=== PATIENT | male | born 1945 | race Caucasian/White ===

== ENCOUNTER → 2020-01-07 15:02 | Outpatient (CLI) | payer MEDICARE, SELFPAY ==
[2020-01-09 08:25] LABS: COVID19 Sendout Not Detected (Not Detect)
== END ==
PROVIDERS: PCP Internal Medicine; Visit Provider Physician Assistant
DX: Z11.59 Encounter for screening for other viral diseases (principal)
CPT/HCPCS: 87635

== ENCOUNTER 2020-01-10 12:42 | Day surgery (SDC) | payer MEDICARE, SELFPAY ==
[2020-01-10] VITALS (11 sets, daily range): BP systolic 72–135; BP diastolic 48–80; PULSE 58–81; RESP 10–28; TEMP 35.6–36.8; O2SAT 95–98; BMI 33.3
--- NOTE | 2020-01-10 | PATH_ITS ---
[facility] Accession Number: [id number] . 01 Material submitted: . colon - COLON POLYP AT 80CM . 01 Clinical history: . SDC . 02 Diagnosis: Colon, Polyp at 80 cm, Biopsy: Tubular adenoma. MRV 01/14/2020 1111 Local . 02 Electronically signed: . Sonia Tineo MD, Pathologist NPI- [id number] . 01 Gross description: . Received in formalin, labeled colon polyp at 80 cm, and consists of a 1.6 x 0.3 x 0.3 cm pedunculated polyp. The margin is inked blue. The specimen is entirely submitted in cassette A1. ([id number]) /MRV 01/11/2020 1600 Local . 02 Pathologist provided ICD-10: D12.6 . 02 CPT . 405918 Performed at: 01 [facility] [address] [place] [address], [place], [place] [id number] MD Robert Espinosa MD Phone: [phone] Performed at: 02 [facility] [place] [address] [place], [place] [id number] MD Sonia Tineo MD Phone: [phone]
[2020-01-10] MEDS: LACTATED RINGERS 1,000 ML 200 ML IV ×2 (13:13→14:17)
--- NOTE | 2020-01-10 13:28 | PM.HP.1 ---
History of Present Illness History of Present Illness Date Patient Seen: 01/10/20 Time Patient Seen: 13:28 Chief complaint: [facility] Narrative: The patient presents for colorectal sreening. They have never had any previous examination for such. No personal or family history of colon cancer. On further history denies any recent gastrointestinal symptoms. No nausea, vomiting, abdominal pain, loss of appetite, unexplained weight loss, change in bowel habits, diarrhea, constipation, melena, hematochezia, or bright red blood per rectum. Patient History Medical History GERD (gastroesophageal reflux disease) (Acute) HTN (hypertension) (Acute) Family & Social History Social History: household members spouse Tobacco & Substance use: Smoking Status Never smoker alcohol intake never Substance Use Type does not use Meds Home Medications and Allergies Home Medications Medication Instructions Recorded Confirmed Type levothyroxine 0.15 mg PO QAM #90 tab 05/30/17 01/10/20 Rx lisinopril 10 mg PO Q DAY #90 tab 05/30/17 01/10/20 Rx lovastatin 20 mg PO HS #90 tab 05/30/17 01/10/20 Rx Allergies Allergy/AdvReac Type Severity Reaction Status Date / Time No Known Drug Allergies Allergy Verified 01/10/20 13:14 Review of Systems Review of Systems Narrative: A 10 point review of systems is negative except as noted in the HPI Exam Vital Signs (past 8 hours): - 01/10/20 13:08 Temperature 97.6 F Pulse Rate 81 Respiratory Rate 21 Blood Pressure 135/80 Pulse Oximetry 97 Oxygen Delivery Method Room Air Narrative Exam Narrative: General-no acute distress, obese male HEENT-moist mucous membranes, no scleral icterus Neck-supple, no lymphadenopathy Chest- non labored respirations, clear to auscultation bilaterally Cardiac-regular rate no peripheral edema Abdomen-soft, nontender, non distended Extremities-warm, well perfused Neurological-alert and oriented, no focal deficits Assessment & Plan Assessment & Plan narrative: The patient requires colorectal screening and colonoscopy is recommended. Technical details were discussed. Risks, benefits, alternatives explained. Risks including but not limited to myocardial infarction, aspiration, bleeding, pain, missed lesion, incomplete examination, need for further radiographic studies, colonic perforation, and need for major abdominal surgery were discussed. All questions were answered to their satisfaction, and they are in agreement with this plan.
[2020-01-10] MEDS: fentaNYL 250 MCG/5 ML INJ IV (13:31)
[2020-01-10] MEDS: MIDAZOLAM 5 MG/5 ML VIAL IV (13:32)
--- NOTE | 2020-01-10 14:02 | PM.OP.ENDO ---
Operative Date/Time/Diagnoses Date of procedure: 01/10/20 Time of procedure: 14:03 Pre-op diagnosis: Screening colonoscopy Post-op diagnosis: same Procedure & Clinicians Study performed: Colonoscopy Same procedure as scheduled: Yes Indications: 74-year-old man no prior colonoscopy here for routine screening Surgeon: Dioni Guallpa Procedure Notes SCOAP/Timeout: Performed Procedure in detail: Patient placed in left lateral recumbent position. Time out was performed. Procedural sedation was administered with Versed and Fentanyl. Examination began with a thorough inspection of the perianal area there was no evidence of fissures, fistulae, external hemorrhoids or cutaneous malignancy. The colonoscopy scope was then placed into the rectum the the lumen was insufflated with air. The scope was carefully advanced forward. Ultimately the cecum was intubated and confirmed by identification of the ileocecal valve, the appendiceal orifice and the confluence of the taenia. The scope was then slowly withdrawn examining colon thoroughly in all directions. In the rectum the rectal columns were identified and retroflexion of the scope was performed for inspection of the distal rectum and anal canal. The colonoscopy was notable for the followin. Quality of the preparation-fair 2. 1 cm pedunculated polyp in the sigmoid colon removed with cold snare 3. Grade 1 internal hemorrhoids Scope withdrawal time: 7 Sedation minutes: 30 Findings: polyp Specimen(s): other (Polyp) Complications: none Impression: Polyp Post-procedure Recommendations: Colonscopy in 5 years Disposition: same day surgery
--- NOTE | 2020-01-10 14:15 | SUR.PHASEI ---
Patient received from [facility] in stable condition. BP 80/53 and patient is diaphoretic. Pre-op blood pressure noted to be 135/80. Abdomen soft. Patient denies pain or nausea. Blood sugar check 102. Lactated ringers bag one running wide open.
== END 2020-01-10 15:09 | disposition home or self-care (01) ==
PROVIDERS: PCP Internal Medicine; Referring Provider Surgery; Visit Provider Surgery
PROC: 0DJD8ZZ Inspection of Lower Intestinal Tract, Via Natural or Artificial Opening Endoscopic (ICD-10-PCS; CPT 45378; principal; 2020-01-10 13:45)
DX: Z12.11 Encounter for screening for malignant neoplasm of colon (principal); I10 Essential (primary) hypertension; K21.9 Gastro-esophageal reflux disease without esophagitis; K64.0 First degree hemorrhoids; D12.6 Benign neoplasm of colon, unspecified
CPT/HCPCS: 45380; 99152; 99153; J2250; J3010

== ENCOUNTER → 2020-06-02 09:28 | Outpatient (CLI) | payer OTHER, SELFPAY ==
--- NOTE | 2020-06-02 | DI.RAD.S_ITS ---
PROCEDURE: XR KNEE RT 1TO2V INDICATIONS: Pain in right knee TECHNIQUE: 2 views of the knee were acquired. COMPARISON: [facility] [place], CR, KNEE BILATERAL STANDING AP, 07/04/2014, 14:48. [facility], CR, KNEE 3V LEFT, 07/03/2014, 8:26. FINDINGS: Bones: No fracture. Severe narrowing of the medial joint space, with gtpr-ez-[id number] appearance. Scattered degenerative subchondral sclerosis and spurring. Soft tissues: Small joint effusion. IMPRESSION: Severe right knee joint degeneration progressed since 07/04/14 Small joint effusion Dictated by: Mayank Hendricks M.D. on 06/02/2020 at 11:05 Approved by: Mayank Hendricks M.D. on 06/02/2020 at 11:06
--- NOTE | 2020-06-02 | DI.RAD.S_ITS ---
PROCEDURE: XR KNEE LT 1TO2V INDICATIONS: Pain in LEFT knee TECHNIQUE: 2 views of the knee were acquired. COMPARISON: [facility], , KNEE 3V LEFT, 07/03/2014, 8:26. FINDINGS: Bones: No fracture. Scattered degenerative subchondral sclerosis and spurring. Large bulky osteophyte formation. Severe narrowing of the medial joint space, with ozxk-te-noga appearance. Soft tissues: Joint effusion is present. IMPRESSION: Severe left knee joint degeneration, progressed since 07/03/14. Dictated by: Mayank Hendricks M.D. on 06/02/2020 at 11:03 Approved by: Mayank Hendricks M.D. on 06/02/2020 at 11:05
== END ==
PROVIDERS: PCP Student in an Organized Health Care Education/Training Program; Referring Provider Student in an Organized Health Care Education/Training Program; Visit Provider Student in an Organized Health Care Education/Training Program
DX: M25.561 Pain in right knee (principal); M25.562 Pain in left knee; M17.0 Bilateral primary osteoarthritis of knee; M25.461 Effusion, right knee; M25.462 Effusion, left knee
CPT/HCPCS: 73560

== ENCOUNTER → 2020-07-07 19:18 | Outpatient (ROUT) | payer OTHER, SELFPAY ==
[2020-07-07 19:42] LABS: BUN Creatinine Ratio 20.3 (6-22); Blood Urea Nitrogen 16 mg/dL (9-20); Calcium 8.8 mg/dL (8.4-10.2); Carbon Dioxide 27 mmol/L (22-32); Chloride 104 mmol/L (98-107); Estimated Glomerular Filt Rate > 60.0 mL/min (>60); Glucose 106 mg/dL (80-110); HEMOLYSIS < 15 (0-50); Potassium 4.3 mmol/L (3.4-5.1); Sodium 138 mmol/L (137-145)
[2020-07-07 20:12] LABS: Hematocrit 35.1 % (41-53); Hemoglobin 11.3 g/dL (13.5-17.5); Mean Corpuscular HGB Conc 32.3 % (30-36); Mean Corpuscular Hemoglobin 22.5 PG (26-34); Mean Corpuscular Volume 69.5 fL (80-100); Platelet Count 330 X10^3/uL (150-400); Red Blood Cell Count 5.05 X10^6/uL (4.5-5.9); Red Cell Distribution Width 18.4 % (11.6-14.8); White Blood Cell Count 6.5 X10^3/uL (4.5-11.0)
== END ==
PROVIDERS: PCP Student in an Organized Health Care Education/Training Program; Visit Provider Student in an Organized Health Care Education/Training Program
DX: Z01.818 Encounter for other preprocedural examination (principal); I10 Essential (primary) hypertension
CPT/HCPCS: 80048; 85027

== ENCOUNTER → 2020-07-15 08:37 | Outpatient (CLI) | payer OTHER, SELFPAY ==
[2020-07-15 09:49] LABS: Add Manual Diff / Slide Review NO; Basophils Absolute Auto 0 /uL (0-100); Basophils Percent Auto 0.8 % (0-2); Eosinophils Absolute Auto 200 /uL (0-450); Eosinophils Percent Auto 3.6 % (2-4); Hematocrit 35.8 % (41-53); Hemoglobin 11.3 g/dL (13.5-17.5); Lymphocytes Absolute Auto 1500 /uL (1100-4500); Lymphocytes Percent Auto 25.6 % (25-40); Mean Corpuscular HGB Conc 31.4 % (30-36); Mean Corpuscular Hemoglobin 21.6 PG (26-34); Mean Corpuscular Volume 68.7 fL (80-100); Monocytes Absolute Auto 600 /uL (0-900); Monocytes Percent Auto 9.5 % (3-14); Neutrophils Absolute Auto 3500 /uL (1500-7000); Neutrophils Percent Auto 60.5 % (50-75); Platelet Count 340 X10^3/uL (150-400); Red Blood Cell Count 5.22 X10^6/uL (4.5-5.9); Red Cell Distribution Width 18.1 % (11.6-14.8); White Blood Cell Count 5.8 X10^3/uL (4.5-11.0)
[2020-07-15 10:09] LABS: Anisocytosis 2+; Poikilocytosis 1+
[2020-07-15 10:10] LABS: Microcytosis 1+
[2020-07-15 10:25] LABS: Hemoglobin A1C% w Est Avg Glu 5.7 % (4.0-6.0)
[2020-07-15 10:29] LABS: BUN Creatinine Ratio 19.3 (6-22); Blood Urea Nitrogen 17 mg/dL (9-20); Calcium 8.6 mg/dL (8.4-10.2); Carbon Dioxide 27 mmol/L (22-32); Chloride 102 mmol/L (98-107); Estimated Glomerular Filt Rate > 60.0 mL/min (>60); Glucose 92 mg/dL (80-110); HEMOLYSIS < 15 (0-50); Potassium 4.4 mmol/L (3.4-5.1); Sodium 137 mmol/L (137-145)
== END ==
PROVIDERS: PCP Student in an Organized Health Care Education/Training Program; Referring Provider Orthopaedic Surgery Adult Reconstructive Orthopaedic Surgery; Visit Provider Orthopaedic Surgery Adult Reconstructive Orthopaedic Surgery
DX: R73.9 Hyperglycemia, unspecified (principal); Z01.812 Encounter for preprocedural laboratory examination
CPT/HCPCS: 36415; 80048; 83036; 85025

== ENCOUNTER → 2020-07-17 08:33 | Outpatient (CLI) | payer OTHER, SELFPAY | PROVIDERS: PCP Student in an Organized Health Care Education/Training Program; Referring Provider Orthopaedic Surgery Adult Reconstructive Orthopaedic Surgery; Visit Provider Orthopaedic Surgery Adult Reconstructive Orthopaedic Surgery | DX: Z01.818 Encounter for other preprocedural examination (principal) | CPT/HCPCS: 93005; 93010 ==

== ENCOUNTER → 2020-08-04 09:53 | Outpatient (CLI) | payer OTHER, SELFPAY ==
[2020-08-04 10:58] LABS: COVID19 -Nasal RAPID Negative (Negative)
== END ==
PROVIDERS: PCP Student in an Organized Health Care Education/Training Program; Visit Provider Student in an Organized Health Care Education/Training Program
DX: Z20.822 Contact with and (suspected) exposure to COVID-19 (principal); Z01.812 Encounter for preprocedural laboratory examination
CPT/HCPCS: 87635; C9803

== ENCOUNTER 2020-08-07 08:00 | Observation (INO) | payer OTHER, SELFPAY ==
[2020-07-31 09:28] VITALS: BMI 32.5
[2020-08-06] VITALS (13 sets, daily range): BP systolic 99–149; BP diastolic 63–86; PULSE 72–90; RESP 8–18; TEMP 36.1–36.8; O2SAT 93–99; BMI 32.5
--- NOTE | 2020-08-06 08:36 | DI.RAD.S_ITS ---
PROCEDURE: XR KNEE RT 1TO2V INDICATIONS: post operative right knee TECHNIQUE: 2 view(s) of the knee acquired. COMPARISON: [facility], , XR KNEE RT 1TO2V, 06/02/2020, 9:40. FINDINGS: Bones: Patient is status post knee joint arthroplasty. Hardware components are in expected positions. Visualized bony structures are intact. Soft tissues: Overlying postoperative changes are noted. IMPRESSION: Expected post operative change. Dictated by: July Jaimes M.D. on 08/06/2020 at 13:55 Approved by: July Jaimes M.D. on 08/06/2020 at 13:56
[2020-08-06] MEDS: LACTATED RINGERS 1,000 ML 42 ML IV (10:00)
[2020-08-06] MEDS: CELECOXIB 200 MG CAPSULE PO (10:01)
[2020-08-06] MEDS: ACETAMINOPHEN 325 MG TABLET 975 MG PO (10:02)
--- NOTE | 2020-08-06 11:15 | PM.PREOP ---
Pre-operative Note COVID-19 COVID-19 status: Negative Result date/Date tested (Pos, Neg/Pending): 08/04/20 Interval Note History & Physical reviewed/Exam performed by Physician: Yes Changes to H&P: No H&P completed within 30 days and has changed as indicated here:: Plan for R TKA
[2020-08-06] MEDS: CEFAZOLIN 1 GM VIAL 2 GM IV ×2 (11:50→20:04)
[2020-08-06] MEDS: TRANEXAMIC ACID 1,000 MG VIAL 2000 MG INJ ×2 (11:59→13:01)
--- NOTE | 2020-08-06 12:04 | SUR.OPER ---
Supine on padded OR bed, head on pillow, arms secured on padded arm boards at <90 degrees abduction, legs uncrossed, Dr. Valenzuela knee positioner, padded foa, brace at thigh, safety belt at pelvis, tape over blanket over left lower leg.
[2020-08-06] MEDS: MORPHINE 4 MG/ML INJ INJ (12:20)
[2020-08-06] MEDS: KETOROLAC 30 MG/ML VIAL IV (12:21)
[2020-08-06] MEDS: ROPIVACAINE 0.5% PF 5 MG/ML 20ML VIAL 40 ML INJ (12:23)
[2020-08-06] MEDS: SODIUM CHLORIDE IRRIG SOLUTION 250 ML, POVIDONE-IODINE SPONGE STICKS 1 APPLIC IRR (12:24)
--- NOTE | 2020-08-06 13:27 | P.OP_ITS ---
Operative Date/Time/Diagnoses Date of procedure: 08/06/20 Time of procedure: 13:27 Pre-op diagnosis: Right knee OA Post-op diagnosis: same Procedure & Clinicians Procedure: right TKA Same procedure as scheduled: Yes Indications: right knee OA resistant to further conservative measures Surgeon: Fazal Valenzuela Soil Biology Teacher: Ran Butcher Anesthesia Type: General and Spinal Operative Notes Findings: Right knee osteoarthritis with [id number]-pl-[id number] articulation in the medial compartment large osteophytes throughout. Closure Type: primary Specimen(s): none sent Prosthetic devices, grafts, tissues, transplants, or devices: Corbett and Nephew Journey 2 BCS Oxinium femoral component size 4, right Journey tibial base plate size 4, right Journey 2 BCS XLPE 10 mm thick size 3-4, right 32 mm oval Celeste 2 patellar button Estimated Blood Loss (mL): 100 Tourniquet time (min): 59 Procedure in detail: patient was met in the preoperative holding area where the site and side of surgery were marked by . Informed consent had been reviewed and signed in clinic was also reviewed the preoperative holding area all last minute questions were answered. Patient was then brought back in the operating room where he received a spinal anesthetic. He was then placed supine on the operating room table and induced under general anesthesia. A nonsterile tourniquet was placed on the right thigh and right lower extremity was then prepped and draped in normal sterile fashion. Surgical time-out was performed verifying the site and side of surgery as well as the name of the patient. An Esmarch was then used to exsanguinate the right lower extremity the tourniquet was inflated 250 mmHg and longitudinal incision over the anterior aspect of the knee was made with a 10. Blade. A new 10. Blade was then used to elevate medial lateral flaps. The medial parapatellar arthrotomy was then marked and made with a 10. Blade. Hoffa's fat pad was then removed and medial peel was made. Medial peel was quite extensive as patient had a non correctable varus alignment of his knee in the preoperative holding area. Once this was complete femoral osteophytes and tibial osteophytes were removed as well as patellar osteophytes the ACL was removed as well as the lateral meniscus. Wapello's line was then marked using electrocautery the entry site for the femoral and tibial drill was then marked using electrocautery as well. The drill was then used to enter the femoral canal and tibial canal respectively. Intramedullary popeye was then placed inside the femur and the distal femoral cutting block was pinned in neutral position initial cut was made however I decided take 2 more mm off the distal femur as the patient had a 5 degree flexion contracture preoperatively. Then moved onto the tibia intramedullary popeye was placed inside the tibia the outrigger was then used to pin the cutting jig in place a drop popeye was then used to verify alignment. Tibial cut was then made this point the knee was brought into full extension and a 9 mm block fit in the extension space. the knee was a little tighter on the medial side than the lateral side. he had overhanging medial osteophytes in the tibia which were removed with a rongeur and this improved balance. The knee was then brought into full flexion it was noted at this point that the PCL looked ragged the and is concerned that this would not last in light 10 with knee at this point we decided to convert to be CS. The PCL was removed. Gap screen printing press operator was then placed inside the knee with the knee in 90? of flexion and tightened. The pin holes were then drilled for the 5 1 cutting block. Gap screen printing press operator was then removed and the drill holes were compared to Whitesides line which showed external rotation. The femur was then sized to size 4. The 5 1 cutting block was then malleted onto the femur and the 5 in 1 cuts were made sequentially. The block was then removed and the bony segments were removed as well. At this point a size 4 right Oxinium femur was then malleted into place and the notch was then prepared using the drill and punch. A size 4 tibial base plate with a 9 mm thick polyethylene was then placed the knee was brought through range of motion. Knee was balanced in varus valgus at full extension through mid flexion flexion range of motion however it was noted that in deep flexion the tibia want to sublux laterally this was also known we removed the trial components. the patella was then cut using freehand technique and sized to size 32 mm oval Celeste 2 patellar button. This was drilled and trial button was placed. The k nee was brought through range of motion with excellent patellar tracking. the tibial base plate was marked using a floating technique. This point the trials were then removed. The tibial base plate was then placed back onto the femur and the keel was then drilled and punched. Pulse lavage was then used to thoroughly irrigate the cut surface of the tibia femur and patella. Local anesthetic was then infiltrated in the periarticular soft tissues including the back of the knee. The cut surface of the femur tibia and patella were then dried and cement was mixed. Cement was then finger packed into the keel hole as well as the cut surface of the tibia. And placed on the undersurface of the tibial base plate. This was then malleted into place and excess cement was removed. Cement was then finger packed on the cut surface of the femur with exception of the posterior condylar cut. Cement was then placed on the feet of the femoral component this was malleted into place and excess cement was removed. A 9 mm thick polyethylene was then placed in a knee was brought into full extension ankle was held in internal rotation. Cement was then finger packed on the cut surface the patella and between the patellar button since clamp in the place excess cement was removed. At this point Betadine solution was placed in the wound allowed to sit for several minutes prior to being lavage with copious normal saline. Tourniquet was let down. And cement was allowed to fully cure before continuing the patient on the knee. Once cement was fully cured I then trialed with a 10 mm thick polyethylene which had improved stability. This lifted a 10 mm thick the CS polyethylene this was then placed onto the tibia make sure the medial lateral tabs were well engaged. The knee was then thoroughly irrigated with pulse lavage normal saline. Electrocautery was used to gain hemostasis. The medial parapatellar arthrotomy was then closed using 1. Vicryl in interrupted fashion followed by running Quill suture followed by 2 Vicryl in the subcutaneous layer followed by running 3-0 Stratafix followed by Dermabond and Aquacel dressing. Complications: none Post-operative Condition: stable Disposition: PACU Plan for aftercare: 24 hours post-op abx, WBAT RLE, ASA 81mg BID for 6 wekes for DVT prophyalxis
--- NOTE | 2020-08-06 13:43 | SUR.PHASEI ---
Received to PACU after general/spinal anesthesia. Airway patent, self maintained. Report from FANTA Hogan and Dr Dinero.
--- NOTE | 2020-08-06 14:05 | SUR.PHASEI ---
Report called to FNATA Castillo. Pt transferred to room 215 by FANTA Alex. Belongings with pt.
[2020-08-06] MEDS: LACTATED RINGERS 1,000 ML 100 ML IV (14:40)
[2020-08-06] MEDS: ACETAMINOPHEN 325 MG TABLET 650 MG PO (14:42)
--- NOTE | 2020-08-06 16:20 | PT.IIE ---
Current Diagnoses Unilateral primary osteoarthritis, right knee (08/06/20) Surgery Performed Operation Date: 08/06/20 11:15 Actual Procedures p Total Knee Arthroplasty(Right) - Fazal Valenzuela MD Surgical History (Last Updated 07/31/20 @ 10:06 by Candelaria Espinal RN) History of arthroscopy of right knee History of colonoscopy History of esophagogastroduodenoscopy (EGD) Medical History (Last Updated 07/31/20 @ 10:12 by Candelaria Espinal RN) Chronic constipation COUCH (dyspnea on exertion) GERD (gastroesophageal reflux disease) Hoarseness HTN (hypertension) Osteoarthritis PSVT (paroxysmal supraventricular tachycardia) Physical Therapy Inpatient Evaluation/Re-Eval M1 PT/OT-IP Prior Functional Status Start: 08/06/20 16:44 Freq: NEEDED Status: Active Protocol: Document 08/06/20 16:20 AB (Rec: 08/06/20 17:34 AB [id number]) Medical Review Prior Functional Status Medical History Reviewed Yes Communication able to make needs known Mobility and Gait pt stated that he is independent with all mobilities and ambulation without AD Social History Household Members spouse,children Living Arrangements Apartment/Condo Number of Floors (Floors) One Floor Number of Stairs To Enter/Railing? lives on a ground level apartment without steps to enter Home Environment Standard Height Toilet,Tub/ Shower Home Equipment Front Wheel Walker,Shower Seat with Backrest Additional Social History Comment lives with spouse and son but son works and spouse will be the main caregiver pt stated that he has outpt PT set up M2 PT-IP Current Condition Start: 08/06/20 16:44 Freq: NEEDED Status: Active Protocol: Document 08/06/20 16:20 AB (Rec: 08/06/20 17:49 AB [id number]) Physical Therapy Current Condition Current Condition Evaluation Date 08/06/20 Treatment Diagnosis s/p R TKA; difficulty in walking Onset Date 08/06/20 Weight Bearing Status Weight Bearing Status Weight Bear as Tolerated Allowed Weight Bearing Amount (enter % RLE WBAT or #) (%) M3 PT-IP Subjective Start: 08/06/20 16:44 Freq: NEEDED Status: Active Protocol: Document 08/06/20 16:20 AB (Rec: 08/06/20 17:34 AB [id number]) Subjective Physical Therapy Visit Type Type Initial Evaluation Visit Start Time 16:20 Visit Stop Time 17:30 Total Visit Minutes 60 Notes split visits: 1620 to 1630 and 1640 to 1730 Number of COLD ROLL CATCHER Visits 0 Physical Therapy Visit Comments Patient Comments pt agreeable to do PT Therapy Pain Assessment Pain Present Pain Present Denied Pain M4 PT-IP Mobility and Gait Start: 08/06/20 16:44 Freq: NEEDED Status: Active Protocol: Document 08/06/20 16:20 AB (Rec: 08/06/20 17:49 AB [id number]) PT-Bed Mobility Assessment Supine to Sit Supine to Sit Standby Assistance Sit to Supine Sit to Supine Standby Assistance PT-Transfer Assessment Sit to and From Stand Sit to and from Stand Minimal Assistance,1 Person Assistance,Use of Upper Extremities Equipment Transfer Assistive Device Gait Belt,Front Wheeled Walker Orthotic/Prosthetic Devices or Brace: No Comments Mobility Comments checked on pt and PLOF and home set up obtained but pt has (+) projectile emesis and NAC has to clean pt first. pt without c/o nausea but only stated that he can feel something coming up his throat . checked back on pt and stated that he is feeling better and wanted to try to move. post op folder provided and reviewed. reviewed HEP. BP in supine: 130/80. completed supine to sit SBA. pt gets in/out from the L side of the bed. pt was able to sit on EOB SBA. no c/o nausea , lightheadess/dizziness. completed sit to stand min A and pt ambulated ~ 6 ft min A using FWW and stated that he needs the emesis bag. pt requiring min A to maintain standing balance. pt assisted back to bed and ambulated using FWw min A. completed sit to supine SBA. positioned in bed. call light and table placed within reach. BP in bed: 134/80. nurse is aware of emesis. Gait Assessment Gait Gait Assistance Required: Minimum Assistance Distance (Feet) 12 Able to Maintain Weight Bearing Status Yes During Gait Assistive Devices Orthotic/Prosthetic Devices or Brace: Yes Factors Limiting Gait Function Factors Limiting Gait Function Decreased Activity Tolerance, Decreased Strength,Limited Range of Motion,Poor Balance, Poor Safety Awareness Comments Gait Comments pls refer to mobility section for details PT-Balance Assessment Sitting Balance and Reactions Static Sitting Balance Ability Good Dynamic Sitting Balance Ability Good Standing Balance and Reactions Static Standing Balance Ability Fair Dynamic Standing Balance Ability Fair Device Used FWW M5 PT-IP Objective Assessments Start: 08/06/20 16:44 Freq: NEEDED Status: Active Protocol: Document 08/06/20 16:20 AB (Rec: 08/06/20 17:49 AB [id number]) Orientation Orientation/Cognition Level of Alertness Alert Orientation Name,Place,Situation Language Function Ability No Deficits Noted Safety Awareness Understands Safety Issues Memory Description No Deficits Noted Gross Range of Motion Lower Extremity ROM Impairments R knee flexion: PROM: 90 deg R knee extension: ~ 10 deg less to 0 Strength Lower Extremity Strength Assessment Within Functional Limits Coordination Assessment Gross Coordination Gross Coordination WNL Sensation Assessment Sensation Gross Sensation WNL Muscle Tone Muscle Tone WNL Yes M6 PT-IP Treatment Start: 08/06/20 16:44 Freq: NEEDED Status: Active Protocol: Document 08/06/20 16:20 AB (Rec: 08/06/20 17:49 AB [id number]) Physical Therapy Treatment Exercises Exercises Heel Slides Education Education Provided Precautions,Weight Bearing Status,Post-Op Packet,Safety M7 PT-IP Assessment and Plan Start: 08/06/20 16:44 Freq: NEEDED Status: Active Protocol: Document 08/06/20 16:20 AB (Rec: 08/06/20 17:49 AB [id number]) PT Summary Assessment and Plan Potential Rehabilitation Potential Good Status of Condition at Evaluation Evolving Summary Impairments Pain,ROM,Strength,Balance, Coordination,Sensation,Tone, Cognition,Bed Mobility, Transfers,Gait,Activity Tolerance Assessment Summary pt s/p R TKA POD 0. required min A with transfers/ ambulation using FWW but not able to tolerate much with (+) emesis during activity. will continue to assess progress. pt plans to go home and spouse to assist him. stated that his son also lives with them and can assist when he is off work. pt also is set up for outpt PT. Goals Bed Mobility Goal Independent Transfer Goal Independent,Front Wheeled Walker Gait Goal Independent,Front Wheel Walker Gait Distance 150 Days to Meet Goals 5 Frequency of Treatment Frequency Of Treatment Twice a Day Treatment Plan Physical Therapy Treatment Plan Bed Mobility Training,Transfer Training,Gait Training, Therapeutic Exercise,Balance Retraining,Post Op Education, Discharge Planning,Hot or Cold Pack,Neuromuscular Re-ed, Coordination Retraining,Manual Therapy Precautions Other Precautions WBAT RLE Recommendations To Nursing Amount of Assist Needed 1 Person Assist Discharge Recommendations PT Discharge Recommendations Home with Assistance, Outpatient PT Transportation Needs at Discharge Private Vehicle
[2020-08-06] MEDS: ONDANSETRON 4 MG/2 ML INJ IV ×2 (17:15→21:04)
--- NOTE | 2020-08-06 21:02 | PC.NURSE ---
Addendum entered by Antonia Sánchez R.N. 08/06/20 22:31: Patient continued to have intermittent nausea with vomiting and appears to be improving. Medicated per MAR for nausea and held PO meds. Patient with fecal and urinary incontinence, bladder scanned 2130 for estimated 384ml. Will straight cath per MD's order. Original Note: Patient has had nausea with emesis during shift. Medicating per MAR for nausea and holding PO meds at this time. Patient denies pain.
[2020-08-07 00:30] VITALS: BP 135/81; PULSE 77; RESP 20; TEMP 36.4; O2SAT 94
[2020-08-07] MEDS: IBUPROFEN 400 MG TABLET PO ×4 (00:52→14:24)
[2020-08-07] MEDS: LACTATED RINGERS 1,000 ML 100 ML IV (00:53)
[2020-08-07 04:00] VITALS: PULSE 76; RESP 18; TEMP 36.5; O2SAT 96
[2020-08-07] MEDS: CEFAZOLIN 1 GM VIAL 2 GM IV (04:03)
[2020-08-07 06:00] LABS: Hematocrit 30.4 % (41-53); Hemoglobin 9.4 g/dL (13.5-17.5)
[2020-08-07] MEDS: LEVOTHYROXINE 150 MCG TABLET PO (06:23)
[2020-08-07 08:02] VITALS: BP 141/81; PULSE 85; RESP 16; TEMP 36.8; O2SAT 95
--- NOTE | 2020-08-07 08:25 | PM.DS.1 ---
History of Present Illness History of Present Illness Date Patient Seen: 08/07/20 Time Patient Seen: 08:25 Chief complaint: Right Total Knee Arthroplasty *OPB* $400 copay Narrative: Patient's pain is [id number]. Denies fever or chills. No nausea or vomiting. Patient does have assistance at home. Discharge Providers Provider Discharge Date: 08/07/20 Primary care physician: Raquel Blanton PA-C Consults: 08/06/20 08:35 Consult to Anesthesiology Routine Comment: Consulting Provider: Anesthesiologist Reason for consultation: Regional block for post operative pain control 08/06/20 14:16 Consult to Discharge Planning Routine Comment: Consult to Physical Therapy Evaluate & Treat Comment: Physician Instructions: postop TKA protocol Consult to Respiratory Therapy Evaluate & Treat Comment: Physician Instructions: Evaluate and treat Discharge provider: Ran Butcher PA-C Summary Hospital Course Discharge Diagnosis: Right knee OA Hospital Course: right TKA Same procedure as scheduled: Yes Indications: right knee OA resistant to further conservative measures Surgeon: Fazal Valenzuela Telecommunication Lines Repairer: Ran Butcher Anesthesia Type: General and Spinal Operative Notes Findings: Right knee osteoarthritis with [id number]-[id number] articulation in the medial compartment large osteophytes throughout. Closure Type: primary Specimen(s): none sent Prosthetic devices, grafts, tissues, transplants, or devices: Corbett and Nephew Journey 2 BCS Oxinium femoral component size 4, right Journey tibial base plate size 4, right Journey 2 BCS XLPE 10 mm thick size 3-4, right 32 mm oval Celeste 2 patellar button Estimated Blood Loss (mL): 100 Tourniquet time (min): 59 Patient admitted to the hospital for right total knee arthroplasty. Patient consented to the same. Patient taken operating room yesterday underwent right total knee arthroplasty. Patient back in his room recovering as in stable condition. Patient will be discharged home today in stable condition. Status at Discharge Cognitive/behavioral status at discharge: at baseline, oriented Functional status at discharge: uses cane/walker Overall status at discharge: patient is progressing back to baseline Time Spent with Patient Time spent: Less than 30 minutes Exam Vital Signs (past 8 hours): - 08/07/20 00:30 08/07/20 04:00 Temperature 97.6 F 97.7 F Pulse Rate 77 76 Respiratory Rate 20 18 Blood Pressure 135/81 Pulse Oximetry 94 96 Oxygen Delivery Method Room Air Oxygen Flow Rate 0 Narrative Exam Narrative: 74-year-old male resting comfortably in bed eating breakfast in no apparent distress. Right knee dressing is Clean, dry, intact.. Motor functions intact distal right lower extremity. Sensation grossly intact to light touch bilateral lower extremities. Objective Labs Result Diagrams: 08/07/20 05:26 Labs: Laboratory Results - last 24 hr 08/07/20 05:26 Hgb 9.4 L Hct 30.4 L PFSH Medical History Chronic constipation COUCH (dyspnea on exertion) GERD (gastroesophageal reflux disease) Hoarseness HTN (hypertension) Osteoarthritis PSVT (paroxysmal supraventricular tachycardia) Surgical History History of arthroscopy of right knee History of colonoscopy History of esophagogastroduodenoscopy (EGD) Social History household members: spouse and children Smoking Status: Never smoker alcohol intake: never Discharge Assessment & Plan Assessment and Plan Assessment: Patient progressing as expected status post right total knee arthroplasty Plan of Treatment: Discharge home today after physical therapy in stable condition. Discharge Plan Discharge Plan Patient Disposition: Home Discharge orders & Medications Discharge Orders: Discharge (Order); Ordered 08/07/20 Ordered By: Ran Butcher Prescriptions: New acetaminophen 325 mg Tablet 650 mg PO TID Qty: 60 RF: 0 aspirin 81 mg Tablet,Delayed Release (Dr/Ec) 81 mg PO BID Qty: 60 RF: 0 docusate sodium [DOK] 100 mg Capsule 100 mg PO BID Qty: 20 RF: 0 ibuprofen 400 mg Tablet 400 mg PO Q4HR Qty: 60 RF: 0 oxycodone 5 mg Tablet 5 mg PO Q3HR PRN (Reason: Pain, Moderate (4-6)) Qty: 60 RF: 0 Continued lisinopril 10 MG tablet 10 mg PO Q DAY Qty: 90 RF: 0 levothyroxine 150 MCG tablet 0.15 mg PO QAM Qty: 90 RF: 0 omeprazole 20 mg Capsule,Delayed Release(Dr/Ec) 20 mg PO DAILY RF: 0 lovastatin 20 MG tablet 20 mg PO QAM RF: 0 Discontinued naproxen sodium [Aleve] 220 mg Capsule 220 mg PO DAILY PRN (Reason: Pain) RF: 0 Follow up/Referrals: Raquel Blanton PA-C [Primary Care Provider] - Fazal Valenzuela MD [Physician] - (2 weeks ) Diet/Activity/Treatments Diet: Diet as Tolerated Activity: Weight-bearing as tolerated Cold/Heat Therapy: Apply ice to knee as needed Skin/Wound/Dressing Care Report to your healthcare provider any signs of infection, such as:: chills, fever, increased pain, unusual drainage and unusual redness Dressing: Keep dressing clean and dry Other wound treatment: May remove Panfilo wrap in 48-72 hours, leave dressing in place Visit Report/Discharge Packet Instructions: DI for Knee Replacement Stand Alone Forms: Surgery Discharge Discharge Data Primary Care Provider: Raquel Blanton Attending Provider: Fazal Valenzuela Quality VTE Deep Vein Thrombosis/Pulmonary Embolism Present on Admission: No
--- NOTE | 2020-08-07 09:49 | PT.IPTN ---
Current Diagnoses Unilateral primary osteoarthritis, right knee (08/07/20) Surgery Performed Operation Date: 08/06/20 11:15 Actual Procedures p Total Knee Arthroplasty(Right) - Fazal Valenzuela MD Physical Therapy Treatment Note M2 PT-IP Current Condition Start: 08/06/20 16:44 Freq: NEEDED Status: Active Protocol: Document 08/06/20 16:20 AB (Rec: 08/06/20 17:49 AB [id number]) Physical Therapy Current Condition Current Condition Evaluation Date 08/06/20 Treatment Diagnosis s/p R TKA; difficulty in walking Onset Date 08/06/20 Weight Bearing Status Weight Bearing Status Weight Bear as Tolerated Allowed Weight Bearing Amount (enter % RLE WBAT or #) (%) M3 PT-IP Subjective Start: 08/06/20 16:44 Freq: NEEDED Status: Active Protocol: Document 08/07/20 09:16 CLB (Rec: 08/07/20 12:29 CLB [id number]) Subjective Physical Therapy Visit Type Type Treatment Note Visit Start Time 09:16 Visit Stop Time 09:49 Total Visit Minutes 33 Number of MERCANTILE REPORTER Visits 1 Physical Therapy Visit Comments Patient Comments pt agreeable to do PT Therapy Pain Assessment Pain When Pain Assessed At Rest Pain Present Pain Present Pain Reported Location Right Knee Intensity 2 Scale Used 3/10 with ambulation Pain Management Techniques Modification of Treatment, Timing of Activity with Medications M4 PT-IP Mobility and Gait Start: 08/06/20 16:44 Freq: NEEDED Status: Active Protocol: Document 08/07/20 09:16 CLB (Rec: 08/07/20 12:29 CLB [id number]) PT-Bed Mobility Assessment Supine to Sit Supine to Sit Standby Assistance Sit to Supine Sit to Supine Standby Assistance PT-Transfer Assessment Sit to and From Stand Sit to and from Stand Standby Assistance,1 Person Assistance,Use of Upper Extremities Equipment Transfer Assistive Device Gait Belt,Front Wheeled Walker Orthotic/Prosthetic Devices or Brace: No Transfers Transfer Destination Bed Transfer Ability Level of Assist Standby Assistance Comments Mobility Comments Pt performed ther ex in bed, pt able to get to EOB SBA, pt stood and ambulated in bey ~ 200ft w/FWW/SBA with cues for step/walker sequencing for small step thru gait pattern. Pt returned to room and sat on window bench to perform seated HS with knee flx to ~ 130 degrees. Pt returned to bed SBA. Pt will d/c home with to assist. Gait Assessment Gait Gait Assistance Required: Standby Assistance,1 Person Assist Distance (Feet) 200 Able to Maintain Weight Bearing Status Yes During Gait Assistive Devices Assistive Device Front Wheeled Walker Orthotic/Prosthetic Devices or Brace: Yes Gait Deviations General Gait Pattern Antalgic,Decreased Stride Length,Decreased Feet Clearance Factors Limiting Gait Function Factors Limiting Gait Function Decreased Activity Tolerance, Decreased Strength,Limited Range of Motion,Poor Balance, Poor Safety Awareness Comments Gait Comments pls refer to mobility section for details Stair Climbing Assessment Comments Stair Climbing Comments no stairs at home M5 PT-IP Objective Assessments Start: 08/06/20 16:44 Freq: NEEDED Status: Active Protocol: Document 08/06/20 16:20 AB (Rec: 08/06/20 17:49 AB [id number]) Orientation Orientation/Cognition Level of Alertness Alert Orientation Name,Place,Situation Language Function Ability No Deficits Noted Safety Awareness Understands Safety Issues Memory Description No Deficits Noted Gross Range of Motion Lower Extremity ROM Impairments R knee flexion: PROM: 90 deg R knee extension: ~ 10 deg less to 0 Strength Lower Extremity Strength Assessment Within Functional Limits Coordination Assessment Gross Coordination Gross Coordination WNL Sensation Assessment Sensation Gross Sensation WNL Muscle Tone Muscle Tone WNL Yes M6 PT-IP Treatment Start: 08/06/20 16:44 Freq: NEEDED Status: Active Protocol: Document 08/07/20 09:16 CLB (Rec: 08/07/20 12:29 CLB [id number]) Physical Therapy Treatment Exercises Exercises Ankle Pumps,Quad Sets,Heel Slides,Straight Leg Raises, Short Arc Quads,Passive Knee Extension Hang,Seated Knee Flexion/Extension Knee ROM Measurement flx ~130 degrees Education Education Provided Precautions,Weight Bearing Status,Post-Op Packet,Safety M7 PT-IP Assessment and Plan Start: 08/06/20 16:44 Freq: NEEDED Status: Active Protocol: Document 08/07/20 09:16 CLB (Rec: 08/07/20 12:29 CLB [id number]) PT Summary Assessment and Plan Potential Rehabilitation Potential Good Status of Condition at Evaluation Evolving Summary Impairments Pain,ROM,Strength,Balance, Coordination,Sensation,Tone, Cognition,Bed Mobility, Transfers,Gait,Activity Tolerance Assessment Summary Pt requiring SBA for all mobility and is able to ambulate ~200ft with FWW/SBA. Pt with good pain controll today. Pt will d/c home with to assist. Goals Bed Mobility Goal Independent Transfer Goal Independent,Front Wheeled Walker Gait Goal Independent,Front Wheel Walker Gait Distance 150 Days to Meet Goals 5 Frequency of Treatment Frequency Of Treatment Twice a Day Treatment Plan Physical Therapy Treatment Plan Bed Mobility Training,Transfer Training,Gait Training, Therapeutic Exercise,Balance Retraining,Post Op Education, Discharge Planning,Hot or Cold Pack,Neuromuscular Re-ed, Coordination Retraining,Manual Therapy Precautions Other Precautions WBAT RLE Recommendations To Nursing Amount of Assist Needed 1 Person Assist Discharge Recommendations PT Discharge Recommendations Home with Assistance, Outpatient PT Transportation Needs at Discharge Private Vehicle
[2020-08-07] MEDS: ACETAMINOPHEN 325 MG TABLET 650 MG PO ×2 (09:59→14:25)
[2020-08-07] MEDS: ASPIRIN EC 81 MG TABLET PO (09:59)
[2020-08-07] MEDS: lisinopriL 10 MG TABLET PO (10:00)
[2020-08-07] MEDS: DOCUSATE 100 MG CAPSULE PO (10:00)
[2020-08-07] MEDS: ATORVASTATIN 20 MG TABLET 10 MG PO (10:00)
--- NOTE | 2020-08-07 11:58 | PC.NURSE ---
Patient noted to have difficulty urinating this morning. Noted by nightshift he had urinary incontinence/wet brief changes. Patient did not feel urge to void this morning, attempted to use urinal and sit on toilet. No other complaints. Bladder scan noted 434cc to 546cc per [employer]. Straight catheterized per order with 600 clear yellow urine emptied, patient tolerated well without complications. Patient now encouraged to drink plenty of fluids, and will monitor for void. Spoke with [facility] nurse Yuridia, who will relay up date to Ran MASTERS.
[2020-08-07 12:17] VITALS: BP 122/66; PULSE 93; RESP 16; TEMP 36.6; O2SAT 94
--- NOTE | 2020-08-07 13:04 | CM.IDA ---
Initial DCP Assessment Note Pt is a 79 yo female, resident of [place], now POD#1 from Rt knee surgery by Dr Valenzuela PCP: Raquel Blanton Payer: Marie FAITH Reviewed chart, pt discussed in multidisciplinary rounds this morning. Patient is indp. and active at baseline, lives w/spouse and son. Therapy has cleared pt for return home w/family to assist and pt has planned for home, DC order from Ortho has already been initiated this morning. No needs expected from DC planning team although will remain available in case this changes today. ANGELA Davis
--- NOTE | 2020-08-07 14:32 | PC.NURSE ---
Discharge instructions and home handouts reviewed with patient. He states understanding and has no further questions or concenrs. Aquacel dressing intact. Patient states he has follow up appointment scheduled. Patient was able to void spontaneously 600cc without difficulty. Patient escorted out via wheelchair with all belongings.
== END 2020-08-07 14:35 | disposition home or self-care (01) ==
LOC: OR 11:06 → AC 11:06
PROVIDERS: Admitting Provider Orthopaedic Surgery Adult Reconstructive Orthopaedic Surgery; PCP Student in an Organized Health Care Education/Training Program; Referring Provider Orthopaedic Surgery Adult Reconstructive Orthopaedic Surgery; Visit Provider Orthopaedic Surgery Adult Reconstructive Orthopaedic Surgery
PROC: 0SRC0JZ Replacement of Right Knee Joint with Synthetic Substitute, Open Approach (ICD-10-PCS; CPT 27447; principal; 2020-08-06 11:15)
DX: M17.11 Unilateral primary osteoarthritis, right knee (principal); M25.761 Osteophyte, right knee; I10 Essential (primary) hypertension; E78.5 Hyperlipidemia, unspecified; K21.9 Gastro-esophageal reflux disease without esophagitis; E66.9 Obesity, unspecified; Z68.32 Body mass index [BMI] 32.0-32.9, adult
CPT/HCPCS: 27447; 36415; 73560; 85014; 85018; 97110; 97116; 97162; 97530; C1776; G0378; J0690; J1100; J1885; J2250; J2270; J2274; J2405; J2704; J3010

== ENCOUNTER 2020-09-15 08:15 | Outpatient (RCR) | payer OTHER, SELFPAY ==
--- NOTE | 2020-07-22 14:29 | PT.OIE ---
Current Diagnoses Unilateral primary osteoarthritis, right knee (07/22/20) Past Medical History (Last Reviewed 01/10/20 @ 13:29 by Dioni Guallpa MD) GERD (gastroesophageal reflux disease) HTN (hypertension) Visit Care Team Role Provider Type Raquel Blanton PA-C Primary Care Provider Non-Staff Specialty: Internal Medicine Address: [address] [place] [address], [id number] Email: [email or web address] Fazal Valenzuela MD Attending Provider Physician Referring Provider Specialty: Orthopedic Surgery Address: [address] [place] [address], [address] Email: [email or web address] Physical Therapy Initial Evaluation PT-OP-A Visit Information Start: 07/21/20 12:09 Freq: Status: Active Protocol: Document 07/22/20 10:30 MB (Rec: 07/22/20 10:56 MB [id number]) Out-Patient Physical Therapy Visit Information Visit Information Visit Type Initial Evaluation Visit Note [employer], therapist only , Maria Dolores, comes to appointment with patient Visit Start Time 10:30 Visit Stop Time 11:09 Total Visit Minutes 39 Visit Number 1 Evaluation Information Evaluation Date 07/22/20 PT-OP-B Current Condition Start: 07/21/20 12:09 Freq: Status: Active Protocol: Document 07/22/20 10:30 MB (Rec: 07/22/20 10:56 MB [id number]) Current Condition History of Current Condition Onset Date 1 year ago History of Current Condition Pt states that he had PT in the past after knee injections . He does some martial art. He is going to have a right TKR on 08/06/20. Pt reports 4/10 right knee pain. He has trouble with his left knee as well and has trouble walking. He has not had a fall . PMH: dizziness in the past that is better, pt's writing is altered and he presents with what sounds like a cleft palate, hypothyroidism, SOB that he reports is more troublesome with mask, high BP , pt has some frequent spontaneous movement of limbs, poor dentition. Pt lives in a basement apartment. He does not have a walker. He has trouble standing for a long period of time. His legs do not like steps. Prior Treatments and Tests PT in the past Treatment Goals Patient/Caregiver Goals To get better PT-OP-C Subjective Start: 07/21/20 12:09 Freq: Status: Active Protocol: Document 07/22/20 10:30 MB (Rec: 07/22/20 10:56 MB [id number]) OP-PT Subjective Patient Comments Patient Comments See history of current condition Patient Questionnaires Lower Extremity Functional Scale LEFS Score 39 LEFS Impairment 40 to 59% Impaired (Score 32- 47) PT-OP-G Mobility & Gait Start: 07/21/20 12:09 Freq: Status: Active Protocol: Document 07/22/20 10:30 MB (Rec: 07/22/20 14:28 MB [id number]) OP Gait Assessment Gait Gait Assistance Required: Independent Distance (Feet) 50 Able to Maintain Weight Bearing Status Yes During Gait Assistive Devices Assistive Device None Orthotic/Prosthetic Devices or Brace: No Factors Limiting Gait Function Factors Limiting Gait Function Abnormal Tonal Influences, Incoordination,Limited Range of Motion,Pain,Poor Balance, Poor Safety Awareness Comments Gait Comments Pt's movement is occ chorea- like in UEs and LEs. He denies a baseline neurological condition. Increased trunk SB right and left with gait without AD. His gait is slow. Stair Climbing Evaluation Comments Stair Climbing Comments No stairs to negociate at home PT-OP-K Range of Motion Start: 07/21/20 12:09 Freq: Status: Active Protocol: Document 07/22/20 10:30 MB (Rec: 07/22/20 14:28 MB [id number]) Knee Goniometric Range of Motion Knee ROM Limitations Comments AROM in supine: Right knee 15-96 deg Left knee 8-105 deg Right knee has severe varus grossly 6 deg; both legs have varus deformity and arthritic knee appearance, greater right knee PT-OP-M Strength Start: 07/21/20 12:09 Freq: Status: Active Protocol: Document 07/22/20 10:30 MB (Rec: 07/22/20 14:28 MB [id number]) Hip Strength Hip Manual Muscle Testing Left Flexion (L2) 5 Normal Abduction 4 Good Right Flexion (L2) 5 Normal Abduction 4 Good Comments MMT assessed in supine Knee Strength Knee Manual Muscle Testing Left Flexion (S2) 5 Normal Extension (L3) 5 Normal Right Flexion (S2) 4 Good Extension (L3) 5 Normal Comments Pt reports pain with MMT flexion Ankle/Foot Strength Ankle and Foot Manual Muscle Testing Left Dorsiflexion (L4) 5 Normal Inversion 5 Normal Eversion (S1) 5 Normal Right Dorsiflexion (L4) 5 Normal Inversion 5 Normal Eversion (S1) 5 Normal Toe Strength Toe Manual Muscle Testing Left Great Toe Extension 4 Good Right Great Toe Extension 4 Good PT-OP-Q Treatments Start: 07/21/20 12:09 Freq: Status: Active Protocol: Document 07/22/20 10:30 MB (Rec: 07/22/20 14:11 MB [id number]) Therapeutic Exercises Supine Exercises AP and HS supine and sitting Comments Pt demos right LE HS supine, B APs Self-Care/Home Management Treatment Education Other Education Use of walker, push up and reach back for chair or bed for sit to stand, step-to gait , ease right leg out in front before sitting to unweight it, moving right leg on and off bed, go to Soropt[employer]ist for RW, BSC, possible tub bench, use of frozen peas for icing, benefits of thigh high compression and asking Dr. Valenzuela about it at appointment today PT-OP-T Assessment and Plan Start: 07/21/20 12:09 Freq: Status: Active Protocol: Document 07/22/20 10:30 MB (Rec: 07/22/20 14:28 MB [id number]) Physical Therapy Assessment Rehab Potential Rehabilitation Potential Fair Evaluation Complexity Number of Personal Factors/Comorbidities 1-2 Number of Body Systems Impaired 1-2 Clinical Presentation at Evaluation Evolving Impairments Impairments Activity Tolerance,Balance, Coordination,Functional Mobility,Gait,Pain,Posture,ROM ,Soft Tissue Mobility,Strength ,Transfers Other Impairments Personal factors include some trouble following commands and his speech is occ difficult to understand. Body systems affecting include musculoskeletal, neuromusuclar and possible neurological in setting of occ twitching and chorea-like movements in UEs and writing changes that look dysmetric. His clinical presentation is evolving in setting of B knee OA and need for B TKRs per his report. Other Concerns Fall Risk Yes Goals 5 Half-Way Goal (LTG) Pt will perform 12 reps sit to stand without UE support in 30 sec to improve functional transfers and balance by . LTG Duration 8 weeks 4 Half-Way Goal (LTG) Pt will gait train at least 1400 feet in 6 minutes without AD to improve community ambulation by 09/22/20. LTG Duration 8 weeks 3 Half-Way Goal (LTG) Pt will perform progressive HEP with I including flexibility, strengthening, balance and gait to improve function and mobility by . LTG Duration 8 weeks 2 Half-Way Goal (LTG) Pt will present with improved active right knee ROM in hook lying to at least 5-100 deg to improve functional range for sit to stands by 09/22/20. LTG Duration 8 weeks 1 Impairment LEF score 39/80 Psychologist Developmental Goal (LTG) Pt will present with an improved LEF score to reflect no more than 30% impairment to reflect improved functional mobility and pain by 09/22/20. 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 He is scheduled for right TKR with Dr. Valenzuela on 08/06/20. He will benefit from post-op PT to improve range, strength, functional transfers , balance and gait. Physical Therapy Plan Frequency and Duration Frequency of Treatment 2x/Week Duration of Treatment 8 weeks Plan of Care Start Date 07/22/20 Plan of Care End Date 09/22/20 Therapeutic Interventions Therapeutic Interventions Aquatic Therapy,Balance Training,Canalithic Repositioning,Coordination Training,Gait Training,Home Exercise Program,Joint Mobilizations,Manual Therapy, Neuromuscular Re-education, Patient/Caregiver Education, Self-Care/Home Management,Soft Tissue Mobilization,Taping, Therapeutic Activities, Therapeutic Exercises Modalities Cold Pack/Ice Massage,Electric Stimulation,Hot Packs, Ultrasound Next Visit Focus/Plan Next Note Type Progress Note Next Visit Plan Reassess LEF, ROM, strength, balance, gait, sit to stands
--- NOTE | 2020-07-22 14:29 | PT.OPPOC ---
Physical, Occupational & Speech Therapy At [facility] Current Diagnoses Unilateral primary osteoarthritis, right knee (07/22/20) Visit Care Team Role Provider Type Raquel Blanton PA-C Primary Care Provider Non-Staff Specialty: Internal Medicine Address: [address] [place] [address], [address] Email: [email or web address] Fazal Valenzuela MD Attending Provider Physician Referring Provider Specialty: Orthopedic Surgery Address: [address] [place] [address], [address] Email: [email or web address] Plan Of Care PT-OP-T Assessment and Plan Start: 07/21/20 12:09 Freq: Status: Active Protocol: Document 07/22/20 10:30 MB (Rec: 07/22/20 14:28 MB [id number]) Physical Therapy Assessment Rehab Potential Rehabilitation Potential Fair Evaluation Complexity Number of Personal Factors/Comorbidities 1-2 Number of Body Systems Impaired 1-2 Clinical Presentation at Evaluation Evolving Impairments Impairments Activity Tolerance,Balance, Coordination,Functional Mobility,Gait,Pain,Posture,ROM ,Soft Tissue Mobility,Strength ,Transfers Other Impairments Personal factors include some trouble following commands and his speech is occ difficult to understand. Body systems affecting include musculoskeletal, neuromusuclar and possible neurological in setting of occ twitching and chorea-like movements in UEs and writing changes that look dysmetric. His clinical presentation is evolving in setting of B knee OA and need for B TKRs per his report. Other Concerns Fall Risk Yes Goals 5 Fci Goal (LTG) Pt will perform 12 reps sit to stand without UE support in 30 sec to improve functional transfers and balance by . LTG Duration 8 weeks 4 Fci Goal (LTG) Pt will gait train at least 1400 feet in 6 minutes without AD to improve community ambulation by 09/22/20. LTG Duration 8 weeks 3 Fci Goal (LTG) Pt will perform progressive HEP with I including flexibility, strengthening, balance and gait to improve function and mobility by . LTG Duration 8 weeks 2 Coagulating Bath Operator Goal (LTG) Pt will present with improved active right knee ROM in hook lying to at least 5-100 deg to improve functional range for sit to stands by 09/22/20. LTG Duration 8 weeks 1 Impairment LEF score 39/80 Coagulating Bath Operator Goal (LTG) Pt will present with an improved LEF score to reflect no more than 30% impairment to reflect improved functional mobility and pain by 09/22/20. 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 He is scheduled for right TKR with Dr. Valenzuela on 08/06/20. He will benefit from post-op PT to improve range, strength, functional transfers , balance and gait. Physical Therapy Plan Frequency and Duration Frequency of Treatment 2x/Week Duration of Treatment 8 weeks Plan of Care Start Date 07/22/20 Plan of Care End Date 09/22/20 Therapeutic Interventions Therapeutic Interventions Aquatic Therapy,Balance Training,Canalithic Repositioning,Coordination Training,Gait Training,Home Exercise Program,Joint Mobilizations,Manual Therapy, Neuromuscular Re-education, Patient/Caregiver Education, Self-Care/Home Management,Soft Tissue Mobilization,Taping, Therapeutic Activities, Therapeutic Exercises Modalities Cold Pack/Ice Massage,Electric Stimulation,Hot Packs, Ultrasound Next Visit Focus/Plan Next Note Type Progress Note Next Visit Plan Reassess LEF, ROM, strength, balance, gait, sit to stands Plan of Care Dates Plan of Care Start Date 07/22/20 Plan of Care End Date 09/22/20 Electronically Signed by: Alexandra James, PT 07/22/20 1766 Please Sign and Return: I have reviewed this Plan of Care and certify that the skilled therapy services above are required to meet the patient?s needs. Physician Signature Date Printed Name and Credentials Clinical Instructor Signature Printed Name and Credentials
--- NOTE | 2020-08-11 11:59 | PT.OPPN ---
Current Diagnoses Unilateral primary osteoarthritis, right knee (08/11/20) Physical Therapy Progress Note PT-OP-A Visit Information Start: 07/21/20 12:09 Freq: Status: Active Protocol: Document 08/11/20 11:45 OF (Rec: 08/11/20 11:58 OF [email or web address]) Out-Patient Physical Therapy Visit Information Visit Information Visit Type Re-Evaluation Visit Note Pt s/p R TKA 08/06 Visit Start Time 11:00 Visit Stop Time 11:45 Total Visit Minutes 45 Visit Number 2 Evaluation Information Evaluation Date 07/22/20 PT-OP-B Current Condition Start: 07/21/20 12:09 Freq: Status: Active Protocol: Document 08/11/20 11:45 OF (Rec: 08/11/20 11:58 OF [email or web address]) Current Condition History of Current Condition Onset Date 1 year ago History of Current Condition Pt states that he had PT in the past after knee injections . He does some martial arts. 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 He has trouble with his left knee as well and has trouble walking. He has not had a fall . PMH: dizziness in the past that is better, pt's writing is altered and he presents with what sounds like a cleft palate, hypothyroidism, SOB that he reports is more troublesome with mask, high BP , pt has some frequent spontaneous movement of limbs, poor dentition. Pt lives in a basement apartment. He does not have a walker. He has trouble standing for a long period of time. His legs do not like steps. Treatment Goals Patient/Caregiver Goals To get better Prior Functional Status Baseline Function- ADL's Independent Baseline Function- Mobility Independent Current Functional Impairments (Reported) Functional Limitations- Other Pt is unable to AMB without AD , he has poor dynamic balance and has loss of ROM, weakness, and pain in R knee. PT-OP-C Subjective Start: 07/21/20 12:09 Freq: Status: Active Protocol: Document 08/11/20 11:45 OF (Rec: 08/11/20 11:58 OF [email or web address]) OP-PT Subjective Patient Comments Patient Comments pt states he has been performing HEP as instructed Patient Reported Progress Improving OP-PT Pain Assessment Pain Assessment Grid Paper Pain Assessment Grid Completed No Location r knee Scale Used Numeric (0 - 10) Description Aching Frequency Frequent Pain Duration 4/10 Pain Aggravating Factors ADL's,Activity,Exercise, Standing,Walking,Stair Climbing,Bending Pain Alleviating Factors Lying Supine PT-OP-G Mobility & Gait Start: 07/21/20 12:09 Freq: Status: Active Protocol: Document 08/11/20 11:45 OF (Rec: 08/11/20 11:58 OF [facility]) OP Gait Assessment Gait Gait Assistance Required: Standby Assistance Distance (Feet) 150 Able to Maintain Weight Bearing Status Yes During Gait Assistive Devices Assistive Device Front Wheeled Walker Gait Deviations General Gait Pattern Antalgic,Decreased Stride Length,Lateral Trunk Lean Factors Limiting Gait Function Factors Limiting Gait Function Decreased Strength,Limited Range of Motion,Pain PT-OP-K Range of Motion Start: 07/21/20 12:09 Freq: Status: Active Protocol: Document 08/11/20 11:45 OF (Rec: 08/11/20 11:58 OF [facility]) Knee Goniometric Range of Motion Knee ROM Limitations Comments AROM in supine: Right knee 12-90 deg Left knee 8-105 deg PT-OP-M Strength Start: 07/21/20 12:09 Freq: Status: Active Protocol: Document 08/11/20 11:45 OF (Rec: 08/11/20 11:58 OF [facility]) Knee Strength Knee Manual Muscle Testing Left Flexion (S2) 5 Normal Extension (L3) 4+ Good+ Right Flexion (S2) 3 Fair Extension (L3) 3 Fair Comments Pt reports pain with MMT flexion PT-OP-T Assessment and Plan Start: 07/21/20 12:09 Freq: Status: Active Protocol: Document 08/11/20 11:45 OF (Rec: 08/11/20 11:58 OF [facility]) Physical Therapy Assessment Rehab Potential Rehabilitation Potential Good Evaluation Complexity Number of Personal Factors/Comorbidities 1-2 Number of Body Systems Impaired 1-2 Clinical Presentation at Evaluation Stable Impairments Impairments Balance,Functional Activities, Functional Mobility,Gait,Pain, ROM,Strength Goals 5 Care Home Goal (LTG) Pt will perform 12 reps sit to stand without UE support in 30 sec to improve functional transfers and balance by . LTG Duration 8 weeks 4 Care Home Goal (LTG) Pt will gait train at least 1400 feet in 6 minutes without AD to improve community ambulation by 09/22/20. LTG Duration 8 weeks 3 Information Analyst Goal (LTG) Pt will perform progressive HEP with I including flexibility, strengthening, balance and gait to improve function and mobility by . LTG Duration 8 weeks 2 Care Home Goal (LTG) Pt will present with improved active right knee ROM in hook lying to at least 5-100 deg to improve functional range for sit to stands by 09/22/20. LTG Duration 8 weeks 1 Impairment LEF score 39/80 Care Home Goal (LTG) Pt will present with an improved LEF score to reflect no more than 30% impairment to reflect improved functional mobility and pain by 09/22/20. LTG Duration 8 weeks Progress Towards Goals Progress Towards Goals Slow Progress due to Medical Issues Assessment Summary Assessment Pt has not made progress toward goals due to his recent surgery. He has excellent potential to meet his goals within POC. He is unable to stand without UE assist, he is unable to AMB >150ft with fww , he has limited ROM due to post op pain. He will continue to require skilled therapy to improve gait pattern, reduce fall risk, and improve ROM to return to I with PLOF. Physical Therapy Plan Frequency and Duration Frequency of Treatment 2x/Week Duration of Treatment 8 weeks Plan of Care Start Date 07/22/20 Plan of Care End Date 09/22/20 Therapeutic Interventions Modalities Cold Pack/Ice Massage Next Visit Focus/Plan Next Note Type Treatment Note Next Visit Plan Reassess ROM, HEP, progress HEP if performed as instructed
--- NOTE | 2020-08-11 12:55 | PT.OTRE ---
Current Diagnoses Unilateral primary osteoarthritis, right knee (08/11/20) Past Medical History (Last Reviewed 08/07/20 @ 08:27 by Ran Butcher PA-C) Chronic constipation COUCH (dyspnea on exertion) GERD (gastroesophageal reflux disease) Hoarseness HTN (hypertension) Osteoarthritis PSVT (paroxysmal supraventricular tachycardia) Surgical History (Last Reviewed 08/07/20 @ 08:27 by Ran Butcher PA-C) History of arthroscopy of right knee History of colonoscopy History of esophagogastroduodenoscopy (EGD) Visit Care Team Role Provider Type Raquel Blanton PA-C Primary Care Provider Non-Staff Specialty: Internal Medicine Address: [address] [place] [address], [id number] Email: [email or web address] Fazal Valenzuela MD Attending Provider Physician Referring Provider Specialty: Orthopedic Surgery Address: [address] [place] [address], [address] Email: [email or web address] Physical Therapy Re-Evaluation PT-OP-A Visit Information Start: 07/21/20 12:09 Freq: Status: Active Protocol: Document 08/11/20 11:55 OF (Rec: 08/11/20 11:58 OF [email or web address]) Out-Patient Physical Therapy Visit Information Visit Information Visit Type Re-Evaluation Visit Note Pt s/p R TKA 6 Visit Start Time 11:15 Visit Stop Time 11:55 Total Visit Minutes 40 Visit Number 2 Evaluation Information Evaluation Date 07/22/20 PT-OP-B Current Condition Start: 07/21/20 12:09 Freq: Status: Active Protocol: Document 08/11/20 11:55 OF (Rec: 08/11/20 11:58 OF [email or web address]) Current Condition History of Current Condition Onset Date 1 year ago History of Current Condition Pt states that he had PT in the past after knee injections . He does some martial arts. He has had TKA 6/2. He has trouble with his left knee as well and has trouble walking. He has not had a fall . PMH: dizziness in the past that is better, pt's writing is altered and he presents with what sounds like a cleft palate, hypothyroidism, SOB that he reports is more troublesome with mask, high BP , pt has some frequent spontaneous movement of limbs, poor dentition. Pt lives in a basement apartment. He does not have a walker. He has trouble standing for a long period of time. His legs do not like steps. Treatment Goals Patient/Caregiver Goals To get better Prior Functional Status Baseline Function- ADL's Independent Baseline Function- Mobility Independent Current Functional Impairments (Reported) Functional Limitations- Other Pt is unable to AMB without AD , he has poor dynamic balance and has loss of ROM, weakness, and pain in R knee. PT-OP-C Subjective Start: 07/21/20 12:09 Freq: Status: Active Protocol: Document 08/11/20 11:55 OF (Rec: 08/11/20 11:58 OF [facility]) OP-PT Subjective Patient Comments Patient Comments pt states he has been performing HEP as instructed Patient Reported Progress Improving OP-PT Pain Assessment Pain Assessment Grid Paper Pain Assessment Grid Completed No Location r knee Scale Used Numeric (0 - 10) Description Aching Frequency Frequent Pain Duration 4/10 Pain Aggravating Factors ADL's,Activity,Exercise, Standing,Walking,Stair Climbing,Bending Pain Alleviating Factors Lying Supine PT-OP-G Mobility & Gait Start: 07/21/20 12:09 Freq: Status: Active Protocol: Document 08/11/20 11:55 OF (Rec: 08/11/20 11:58 OF [facility]) OP Gait Assessment Gait Gait Assistance Required: Standby Assistance Distance (Feet) 150 Able to Maintain Weight Bearing Status Yes During Gait Assistive Devices Assistive Device Front Wheeled Walker Gait Deviations General Gait Pattern Antalgic,Decreased Stride Length,Lateral Trunk Lean Factors Limiting Gait Function Factors Limiting Gait Function Decreased Strength,Limited Range of Motion,Pain PT-OP-K Range of Motion Start: 07/21/20 12:09 Freq: Status: Active Protocol: Document 08/11/20 11:55 OF (Rec: 08/11/20 11:58 OF [facility]) Knee Goniometric Range of Motion Knee ROM Limitations Comments AROM in supine: Right knee 12-90 deg Left knee 8-105 deg PT-OP-M Strength Start: 07/21/20 12:09 Freq: Status: Active Protocol: Document 08/11/20 11:55 OF (Rec: 08/11/20 11:58 OF [email or web address]) Knee Strength Knee Manual Muscle Testing Left Flexion (S2) 5 Normal Extension (L3) 4+ Good+ Right Flexion (S2) 3 Fair Extension (L3) 3 Fair Comments Pt reports pain with MMT flexion PT-OP-Q Treatments Start: 07/21/20 12:09 Freq: Status: Active Protocol: Document 08/11/20 11:55 OF (Rec: 08/11/20 11:58 [id number] Therapeutic Exercises Supine Exercises slr Side right Comments cues for quad contraction, attempting to increase knee ext long arc quad Side right Reps/Minutes 3x10 Comments cues for full extension AP and HS supine and sitting Comments Pt demos right LE HS supine, B APs Standing Exercises heel/toe Side bilateral Reps/Minutes 3x10 Gait Training Gait Activity fww Description level surfaces Device Used fww Level of Assistance sba Distance/Duration 150ft Comments pt requires cues for terminal knee ext, staying within safe distance of AD, increasing gait speed by improving pushoff. Self-Care/Home Management Treatment Education Patient Education Fall Risk,Home Exercise Program Other Education pt re-educated upon need to perform HEP 3xdaily. He has written instructions PT-OP-T Assessment and Plan Start: 07/21/20 12:09 Freq: Status: Active Protocol: Document 08/11/20 11:55 OF (Rec: 08/11/20 11:58 [email or web address] Physical Therapy Assessment Rehab Potential Rehabilitation Potential Good Evaluation Complexity Number of Personal Factors/Comorbidities 1-2 Number of Body Systems Impaired 1-2 Clinical Presentation at Evaluation Stable Impairments Impairments Balance,Functional Activities, Functional Mobility,Gait,Pain, ROM,Strength Goals 5 Correction Goal (LTG) Pt will perform 12 reps sit to stand without UE support in 30 sec to improve functional transfers and balance by . LTG Duration 8 weeks 4 Correction Goal (LTG) Pt will gait train at least 1400 feet in 6 minutes without AD to improve community ambulation by 09/22/20. LTG Duration 8 weeks 3 Financial Accountant Goal (LTG) Pt will perform progressive HEP with I including flexibility, strengthening, balance and gait to improve function and mobility by . LTG Duration 8 weeks 2 Financial Accountant Goal (LTG) Pt will present with improved active right knee ROM in hook lying to at least 5-100 deg to improve functional range for sit to stands by 09/22/20. LTG Duration 8 weeks 1 Impairment LEF score 39/80 Correction Goal (LTG) Pt will present with an improved LEF score to reflect no more than 30% impairment to reflect improved functional mobility and pain by 09/22/20. LTG Duration 8 weeks Progress Towards Goals Progress Towards Goals Slow Progress due to Medical Issues Assessment Summary Assessment Pt has not made progress toward goals due to his recent surgery. He has excellent potential to meet his goals within POC. He is unable to stand without UE assist, he is unable to AMB >150ft with fww , he has limited ROM due to post op pain. He will continue to require skilled therapy to improve gait pattern, reduce fall risk, and improve ROM to return to I with PLOF. Physical Therapy Plan Frequency and Duration Frequency of Treatment 2x/Week Duration of Treatment 8 weeks Plan of Care Start Date 07/22/20 Plan of Care End Date 09/22/20 Therapeutic Interventions Modalities Cold Pack/Ice Massage Next Visit Focus/Plan Next Note Type Treatment Note Next Visit Plan Reassess ROM, HEP, progress HEP if performed as instructed
--- NOTE | 2020-08-11 15:29 | PT.OPPOC ---
Addendum entered and electronically signed by Korey Castillo PT 08/11/20 15:30: send to Dr. Valenzuela Original Note: Physical, Occupational & Speech Therapy At [facility] Current Diagnoses Unilateral primary osteoarthritis, right knee (08/11/20) Visit Care Team Role Provider Type Raquel Blanton PA-C Primary Care Provider Non-Staff Specialty: Internal Medicine Address: [address] [place] [address], [address] Email: [email or web address] Fazal Valenzuela MD Attending Provider Physician Referring Provider Specialty: Orthopedic Surgery Address: [address] [place] [address], [address] Email: [email or web address] Plan Of Care PT-OP-T Assessment and Plan Start: 07/21/20 12:09 Freq: Status: Active Protocol: Document 08/11/20 11:55 OF (Rec: 08/11/20 11:58 OF [email or web address]) Physical Therapy Assessment Rehab Potential Rehabilitation Potential Good Evaluation Complexity Number of Personal Factors/Comorbidities 1-2 Number of Body Systems Impaired 1-2 Clinical Presentation at Evaluation Stable Impairments Impairments Balance,Functional Activities, Functional Mobility,Gait,Pain, ROM,Strength Goals 5 Jail Goal (LTG) Pt will perform 12 reps sit to stand without UE support in 30 sec to improve functional transfers and balance by . LTG Duration 8 weeks 4 Pest Locator Goal (LTG) Pt will gait train at least 1400 feet in 6 minutes without AD to improve community ambulation by 09/22/20. LTG Duration 8 weeks 3 Jail Goal (LTG) Pt will perform progressive HEP with I including flexibility, strengthening, balance and gait to improve function and mobility by . LTG Duration 8 weeks 2 Pest Locator Goal (LTG) Pt will present with improved active right knee ROM in hook lying to at least 5-100 deg to improve functional range for sit to stands by 09/22/20. LTG Duration 8 weeks 1 Impairment LEF score 39/80 Pest Locator Goal (LTG) Pt will present with an improved LEF score to reflect no more than 30% impairment to reflect improved functional mobility and pain by 09/22/20. LTG Duration 8 weeks Progress Towards Goals Progress Towards Goals Slow Progress due to Medical Issues Assessment Summary Assessment Pt has not made progress toward goals due to his recent surgery. He has excellent potential to meet his goals within POC. He is unable to stand without UE assist, he is unable to AMB >150ft with fww , he has limited ROM due to post op pain. He will continue to require skilled therapy to improve gait pattern, reduce fall risk, and improve ROM to return to I with PLOF. Physical Therapy Plan Frequency and Duration Frequency of Treatment 2x/Week Duration of Treatment 8 weeks Plan of Care Start Date 07/22/20 Plan of Care End Date 09/22/20 Therapeutic Interventions Modalities Cold Pack/Ice Massage Next Visit Focus/Plan Next Note Type Treatment Note Next Visit Plan Reassess ROM, HEP, progress HEP if performed as instructed Plan of Care Dates Plan of Care Start Date 07/22/20 Plan of Care End Date 09/22/20 Electronically Signed by: Korey Castillo, PT 08/11/20 2940 Please Sign and Return: I have reviewed this Plan of Care and certify that the skilled therapy services above are required to meet the patient?s needs. Physician Signature Date Printed Name and Credentials Clinical Instructor Signature Printed Name and Credentials
--- NOTE | 2020-08-15 12:38 | PT.OTN ---
Current Diagnoses Unilateral primary osteoarthritis, right knee (08/15/20) Physical Therapy Treatment Note PT-OP-A Visit Information Start: 07/21/20 12:09 Freq: Status: Active Protocol: Document 08/15/20 12:32 OF (Rec: 08/15/20 12:37 OF [email or web address]) Out-Patient Physical Therapy Visit Information Visit Information Visit Type Treatment Note Visit Note Pt reports pain with HEP Visit Start Time 12:00 Visit Stop Time 12:31 Total Visit Minutes 31 Visit Number 2 Evaluation Information Evaluation Date 07/22/20 PT-OP-B Current Condition Start: 07/21/20 12:09 Freq: Status: Active Protocol: Document 08/11/20 11:55 OF (Rec: 08/11/20 11:58 OF [email or web address]) Current Condition History of Current Condition Onset Date 1 year ago History of Current Condition Pt states that he had PT in the past after knee injections . He does some martial arts. 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 He has trouble with his left knee as well and has trouble walking. He has not had a fall . PMH: dizziness in the past that is better, pt's writing is altered and he presents with what sounds like a cleft palate, hypothyroidism, SOB that he reports is more troublesome with mask, high BP , pt has some frequent spontaneous movement of limbs, poor dentition. Pt lives in a basement apartment. He does not have a walker. He has trouble standing for a long period of time. His legs do not like steps. Treatment Goals Patient/Caregiver Goals To get better Prior Functional Status Baseline Function- ADL's Independent Baseline Function- Mobility Independent Current Functional Impairments (Reported) Functional Limitations- Other Pt is unable to AMB without AD , he has poor dynamic balance and has loss of ROM, weakness, and pain in R knee. PT-OP-C Subjective Start: 07/21/20 12:09 Freq: Status: Active Protocol: Document 08/15/20 12:32 OF (Rec: 08/15/20 12:37 OF [email or web address]) OP-PT Subjective Patient Comments Patient Comments Pt states he has been performing HEP 2x daily. Unable to tolerate 3x/day Patient Reported Progress Improving OP-PT Pain Assessment Location r knee Intensity 4 Scale Used Numeric (0 - 10) Description Aching,Sharp Frequency Frequent Pain Aggravating Factors ADL's,Activity,Exercise, Standing,Walking Pain Alleviating Factors Rest PT-OP-G Mobility & Gait Start: 07/21/20 12:09 Freq: Status: Active Protocol: Document 08/11/20 11:55 OF (Rec: 08/11/20 11:58 OF [facility]) OP Gait Assessment Gait Gait Assistance Required: Standby Assistance Distance (Feet) 150 Able to Maintain Weight Bearing Status Yes During Gait Assistive Devices Assistive Device Front Wheeled Walker Gait Deviations General Gait Pattern Antalgic,Decreased Stride Length,Lateral Trunk Lean Factors Limiting Gait Function Factors Limiting Gait Function Decreased Strength,Limited Range of Motion,Pain PT-OP-K Range of Motion Start: 07/21/20 12:09 Freq: Status: Active Protocol: Document 08/11/20 11:55 OF (Rec: 08/11/20 11:58 OF [facility]) Knee Goniometric Range of Motion Knee ROM Limitations Comments AROM in supine: Right knee 12-90 deg Left knee 8-105 deg PT-OP-M Strength Start: 07/21/20 12:09 Freq: Status: Active Protocol: Document 08/11/20 11:55 OF (Rec: 08/11/20 11:58 OF [facility]) Knee Strength Knee Manual Muscle Testing Left Flexion (S2) 5 Normal Extension (L3) 4+ Good+ Right Flexion (S2) 3 Fair Extension (L3) 3 Fair Comments Pt reports pain with MMT flexion PT-OP-Q Treatments Start: 07/21/20 12:09 Freq: Status: Active Protocol: Document 08/15/20 12:32 OF (Rec: 08/15/20 12:37 OF [facility]) Cardio Equipment Recumbent Bicycle Duration (Minutes) 10 Resistance 1 Seat Position 2 Other 1/2 revolutions to improve knee flexion Therapeutic Exercises Supine Exercises slr Side right Reps/Minutes 2x10 Comments cues for quad contraction, attempting to increase knee ext long arc quad Side right Reps/Minutes 3x10 Comments cues for full extension Standing Exercises minisquats Side bilateral Reps/Minutes 2x5 Comments cues for extending hips, eccentric control and knee extension with standing heel/toe Side bilateral Reps/Minutes 3x10 Gait Training Gait Activity fww Description level surfaces Device Used fww Level of Assistance sba Distance/Duration 150ft x3 Comments pt requires cues for terminal knee ext, staying within safe distance of AD, increasing gait speed by improving pushoff. Self-Care/Home Management Treatment Education Patient Education Home Exercise Program PT-OP-T Assessment and Plan Start: 07/21/20 12:09 Freq: Status: Active Protocol: Document 08/15/20 12:32 OF (Rec: 08/15/20 12:37 OF [email or web address]) Physical Therapy Assessment Rehab Potential Rehabilitation Potential Excellent Evaluation Complexity Number of Personal Factors/Comorbidities 0 Number of Body Systems Impaired 1-2 Clinical Presentation at Evaluation Stable Impairments Impairments Functional Activities,Gait, Pain,ROM Progress Towards Goals Progress Towards Goals Progressing Toward Goals Assessment Summary Assessment Pt agreeable to progressing HEP, increased volume. He has difficulty walking with FWW, poor endurance. Physical Therapy Plan Next Visit Focus/Plan Next Note Type Treatment Note Next Visit Plan R knee flex 91, ext 165. Pt has difficulty with volume of HEP, requires asssist for TKE
--- NOTE | 2020-08-18 12:52 | PT.OTN ---
Current Diagnoses Unilateral primary osteoarthritis, right knee (08/18/20) Physical Therapy Treatment Note PT-OP-A Visit Information Start: 07/21/20 12:09 Freq: Status: Active Protocol: Document 08/18/20 12:45 OF (Rec: 08/18/20 12:52 OF [id number]) Out-Patient Physical Therapy Visit Information Visit Information Visit Type Treatment Note Visit Start Time 12:00 Visit Stop Time 12:42 Total Visit Minutes 42 Visit Number 3 Evaluation Information Evaluation Date 07/22/20 PT-OP-B Current Condition Start: 07/21/20 12:09 Freq: Status: Active Protocol: Document 08/11/20 11:55 OF (Rec: 08/11/20 11:58 OF [email or web address]) Current Condition History of Current Condition Onset Date 1 year ago History of Current Condition Pt states that he had PT in the past after knee injections . He does some martial arts. He has had TKA /. He has trouble with his left knee as well and has trouble walking. He has not had a fall . PMH: dizziness in the past that is better, pt's writing is altered and he presents with what sounds like a cleft palate, hypothyroidism, SOB that he reports is more troublesome with mask, high BP , pt has some frequent spontaneous movement of limbs, poor dentition. Pt lives in a basement apartment. He does not have a walker. He has trouble standing for a long period of time. His legs do not like steps. Treatment Goals Patient/Caregiver Goals To get better Prior Functional Status Baseline Function- ADL's Independent Baseline Function- Mobility Independent Current Functional Impairments (Reported) Functional Limitations- Other Pt is unable to AMB without AD , he has poor dynamic balance and has loss of ROM, weakness, and pain in R knee. PT-OP-C Subjective Start: 07/21/20 12:09 Freq: Status: Active Protocol: Document 08/18/20 12:45 OF (Rec: 08/18/20 12:52 OF [id number]) OP-PT Subjective Patient Comments Patient Comments Pt states he is having pain at night, educated upon positioning to maintain ROM and icing Patient Reported Progress Same OP-PT Pain Assessment Pain Assessment Grid Paper Pain Assessment Grid Completed 05/14 Location r knee Scale Used Numeric (0 - 10) Description Aching Frequency Frequent Pain Aggravating Factors ADL's,Activity,Exercise, Standing Pain Alleviating Factors Cold,Medication Home Pain Medication Use Pain Medications Used Yes PT-OP-G Mobility & Gait Start: 07/21/20 12:09 Freq: Status: Active Protocol: Document 08/11/20 11:55 OF (Rec: 08/11/20 11:58 OF [email or web address]) OP Gait Assessment Gait Gait Assistance Required: Standby Assistance Distance (Feet) 150 Able to Maintain Weight Bearing Status Yes During Gait Assistive Devices Assistive Device Front Wheeled Walker Gait Deviations General Gait Pattern Antalgic,Decreased Stride Length,Lateral Trunk Lean Factors Limiting Gait Function Factors Limiting Gait Function Decreased Strength,Limited Range of Motion,Pain PT-OP-K Range of Motion Start: 07/21/20 12:09 Freq: Status: Active Protocol: Document 08/11/20 11:55 OF (Rec: 08/11/20 11:58 OF [email or web address]) Knee Goniometric Range of Motion Knee ROM Limitations Comments AROM in supine: Right knee 12-90 deg Left knee 8-105 deg PT-OP-M Strength Start: 07/21/20 12:09 Freq: Status: Active Protocol: Document 08/11/20 11:55 OF (Rec: 08/11/20 11:58 OF [email or web address]) Knee Strength Knee Manual Muscle Testing Left Flexion (S2) 5 Normal Extension (L3) 4+ Good+ Right Flexion (S2) 3 Fair Extension (L3) 3 Fair Comments Pt reports pain with MMT flexion PT-OP-Q Treatments Start: 07/21/20 12:09 Freq: Status: Active Protocol: Document 08/18/20 12:45 OF (Rec: 08/18/20 12:52 OF [id number]) Cardio Equipment Recumbent Bicycle Duration (Minutes) 10 Resistance 1 Seat Position 2 Other 1/2 revolutions to improve knee flexion Therapeutic Exercises Supine Exercises slr Side right Reps/Minutes 2x10 Comments cues for quad contraction, attempting to increase knee ext long arc quad Side right Reps/Minutes 3x10 Comments cues for full extension AP and HS supine and sitting Side bilateral Comments Pt demos right LE HS supine, B APs Standing Exercises step up/down Side right Reps/Minutes 3x10 Comments cues for eccentric control, increased knee ext minisquats Side bilateral Reps/Minutes 3x10 Comments cues for extending hips, eccentric control and knee extension with standing heel/toe Side bilateral Reps/Minutes 3x10 Gait Training Gait Activity fww Description level surfaces Device Used fww Level of Assistance sba Distance/Duration 150ft x3 Comments cane fitting and trial, pt has difficulty sequencing cane, poor safety awareness. Pt advised to use fww to reduce fall risk. He is agreeable to fww for AMB outside of therapy Self-Care/Home Management Treatment Education Patient Education Body Mechanics,Home Exercise Program,Pain Management Other Education pt re-educated upon need to perform HEP 3xdaily. He has written instructions and states he has been performing 2x PT-OP-T Assessment and Plan Start: 07/21/20 12:09 Freq: Status: Active Protocol: Document 08/18/20 12:45 OF (Rec: 08/18/20 12:52 OF [id number]) Physical Therapy Assessment Rehab Potential Rehabilitation Potential Good Evaluation Complexity Number of Personal Factors/Comorbidities 1-2 Number of Body Systems Impaired 1-2 Clinical Presentation at Evaluation Stable Impairments Impairments Gait,Pain,ROM,Soft Tissue Mobility,Strength Progress Towards Goals Progress Towards Goals Progressing Toward Goals Assessment Summary Assessment pt has improved flexion of 98. ext 170. He has limited safety awareness with cane, agreeable to increased HEP performance Physical Therapy Plan Next Visit Focus/Plan Next Note Type Treatment Note Next Visit Plan progress AAROM for knee flexion, scooting, knee ext, minisquats or step downs
--- NOTE | 2020-08-20 12:40 | PT.OTN ---
Current Diagnoses Unilateral primary osteoarthritis, right knee (08/20/20) Physical Therapy Treatment Note PT-OP-A Visit Information Start: 07/21/20 12:09 Freq: Status: Active Protocol: Document 08/20/20 12:03 OF (Rec: 08/20/20 12:39 OF [id number]) Out-Patient Physical Therapy Visit Information Visit Information Visit Type Treatment Note Visit Start Time 11:59 Visit Stop Time 12:40 Total Visit Minutes 41 Visit Number 4 Evaluation Information Evaluation Date 07/22/20 PT-OP-B Current Condition Start: 07/21/20 12:09 Freq: Status: Active Protocol: Document 08/11/20 11:55 OF (Rec: 08/11/20 11:58 OF [email or web address]) Current Condition History of Current Condition Onset Date 1 year ago History of Current Condition Pt states that he had PT in the past after knee injections . He does some martial arts. 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 He has trouble with his left knee as well and has trouble walking. He has not had a fall . PMH: dizziness in the past that is better, pt's writing is altered and he presents with what sounds like a cleft palate, hypothyroidism, SOB that he reports is more troublesome with mask, high BP , pt has some frequent spontaneous movement of limbs, poor dentition. Pt lives in a basement apartment. He does not have a walker. He has trouble standing for a long period of time. His legs do not like steps. Treatment Goals Patient/Caregiver Goals To get better Prior Functional Status Baseline Function- ADL's Independent Baseline Function- Mobility Independent Current Functional Impairments (Reported) Functional Limitations- Other Pt is unable to AMB without AD , he has poor dynamic balance and has loss of ROM, weakness, and pain in R knee. PT-OP-C Subjective Start: 07/21/20 12:09 Freq: Status: Active Protocol: Document 08/20/20 12:03 OF (Rec: 08/20/20 12:39 OF [id number]) OP-PT Subjective Patient Comments Patient Comments pt states he has had good HEP performance, incision clean, aquacell removed at MD office yesterday. OP-PT Pain Assessment Location r knee Intensity 4 Scale Used Numeric (0 - 10) Description Aching,Burning,Tightness Frequency Frequent Pain Duration 4/10 Pain Aggravating Factors ADL's,Activity,Exercise, Standing Pain Alleviating Factors Cold,Medication PT-OP-G Mobility & Gait Start: 07/21/20 12:09 Freq: Status: Active Protocol: Document 08/11/20 11:55 OF (Rec: 08/11/20 11:58 OF [email or web address]) OP Gait Assessment Gait Gait Assistance Required: Standby Assistance Distance (Feet) 150 Able to Maintain Weight Bearing Status Yes During Gait Assistive Devices Assistive Device Front Wheeled Walker Gait Deviations General Gait Pattern Antalgic,Decreased Stride Length,Lateral Trunk Lean Factors Limiting Gait Function Factors Limiting Gait Function Decreased Strength,Limited Range of Motion,Pain PT-OP-K Range of Motion Start: 07/21/20 12:09 Freq: Status: Active Protocol: Document 08/11/20 11:55 OF (Rec: 08/11/20 11:58 OF [email or web address]) Knee Goniometric Range of Motion Knee ROM Limitations Comments AROM in supine: Right knee 12-90 deg Left knee 8-105 deg PT-OP-M Strength Start: 07/21/20 12:09 Freq: Status: Active Protocol: Document 08/11/20 11:55 OF (Rec: 08/11/20 11:58 OF [email or web address]) Knee Strength Knee Manual Muscle Testing Left Flexion (S2) 5 Normal Extension (L3) 4+ Good+ Right Flexion (S2) 3 Fair Extension (L3) 3 Fair Comments Pt reports pain with MMT flexion PT-OP-Q Treatments Start: 07/21/20 12:09 Freq: Status: Active Protocol: Document 08/20/20 12:03 OF (Rec: 08/20/20 12:39 OF [id number]) Cardio Equipment Recumbent Bicycle Duration (Minutes) 10 Resistance 1 Seat Position 2 Other 1/2 revolutions to improve knee flexion Therapeutic Exercises Supine Exercises slr Side right Reps/Minutes 2x10 Comments cues for quad contraction, attempting to increase knee ext long arc quad Side right Reps/Minutes 3x10 Comments cues for full extension Standing Exercises step up/down Side right Reps/Minutes 3x10 Comments cues for eccentric control, increased knee ext with stance minisquats Side bilateral Reps/Minutes 3x10 Comments cues for extending hips, eccentric control and knee extension with standing heel/toe Side bilateral Reps/Minutes 3x10 Comments gastroc stretch 3x30 sec Gait Training Gait Activity fww Description level surfaces Device Used fww Level of Assistance sba Distance/Duration 150ft x3 Comments cane trial, pt has difficulty sequencing cane, narrow CORNELIO, poor safety awareness. Pt advised to use fww to reduce fall risk. He is agreeable to fww for AMB outside of therapy Self-Care/Home Management Treatment Education Patient Education Home Exercise Program,Pain Management Other Education pt agreeable to hep for heel slide progression, standing heel lift, minisquats, fww outside of therapy PT-OP-T Assessment and Plan Start: 07/21/20 12:09 Freq: Status: Active Protocol: Document 08/20/20 12:03 OF (Rec: 08/20/20 12:39 OF [id number]) Physical Therapy Assessment Rehab Potential Rehabilitation Potential Excellent Evaluation Complexity Number of Personal Factors/Comorbidities 1-2 Number of Body Systems Impaired 1-2 Clinical Presentation at Evaluation Stable Impairments Impairments Gait,Pain,ROM,Strength Progress Towards Goals Progress Towards Goals Progressing Toward Goals Assessment Summary Assessment Pt has improved AROM, 98 flexion, ext 170. He has difficulty with cane, difficulty normalizing step length. Demo improves performance over 2 bouts. AAROM for prolonged ext causes pain, improved flexion AAROM with scoot. Ice x10min post tx . Physical Therapy Plan Next Visit Focus/Plan Next Visit Plan progress AAROM for knee flexion, scooting, knee ext with hold, step downs. Cane assessment if improved sequencing. Ice post tx x10min .
--- NOTE | 2020-08-25 12:40 | PT.OTN ---
Current Diagnoses Unilateral primary osteoarthritis, right knee (08/25/20) Physical Therapy Treatment Note PT-OP-A Visit Information Start: 07/21/20 12:09 Freq: Status: Active Protocol: Document 08/25/20 12:00 DCW (Rec: 08/25/20 12:40 DCW [id number]) Out-Patient Physical Therapy Visit Information Visit Information Visit Type Treatment Note Visit Start Time 12:00 Visit Stop Time 12:45 Total Visit Minutes 45 Visit Number 5 Number of FORM MAKER PLASTER Visits 0 Evaluation Information Evaluation Date 07/22/20 PT-OP-B Current Condition Start: 07/21/20 12:09 Freq: Status: Active Protocol: Document 08/11/20 11:55 OF (Rec: 08/11/20 11:58 OF [email or web address]) Current Condition History of Current Condition Onset Date 1 year ago History of Current Condition Pt states that he had PT in the past after knee injections . He does some martial arts. 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 He has trouble with his left knee as well and has trouble walking. He has not had a fall . PMH: dizziness in the past that is better, pt's writing is altered and he presents with what sounds like a cleft palate, hypothyroidism, SOB that he reports is more troublesome with mask, high BP , pt has some frequent spontaneous movement of limbs, poor dentition. Pt lives in a basement apartment. He does not have a walker. He has trouble standing for a long period of time. His legs do not like steps. Treatment Goals Patient/Caregiver Goals To get better Prior Functional Status Baseline Function- ADL's Independent Baseline Function- Mobility Independent Current Functional Impairments (Reported) Functional Limitations- Other Pt is unable to AMB without AD , he has poor dynamic balance and has loss of ROM, weakness, and pain in R knee. PT-OP-C Subjective Start: 07/21/20 12:09 Freq: Status: Active Protocol: Document 08/25/20 12:00 DCW (Rec: 08/25/20 12:40 DCW [id number]) OP-PT Subjective Patient Comments Patient Comments It still aches at night when I'm trying to sleep, but it has been doing much better during the day. Also notes he is walking around his apartment without his walker. PT-OP-G Mobility & Gait Start: 07/21/20 12:09 Freq: Status: Active Protocol: Document 08/11/20 11:55 OF (Rec: 08/11/20 11:58 OF [email or web address]) OP Gait Assessment Gait Gait Assistance Required: Standby Assistance Distance (Feet) 150 Able to Maintain Weight Bearing Status Yes During Gait Assistive Devices Assistive Device Front Wheeled Walker Gait Deviations General Gait Pattern Antalgic,Decreased Stride Length,Lateral Trunk Lean Factors Limiting Gait Function Factors Limiting Gait Function Decreased Strength,Limited Range of Motion,Pain PT-OP-K Range of Motion Start: 07/21/20 12:09 Freq: Status: Active Protocol: Document 08/11/20 11:55 OF (Rec: 08/11/20 11:58 OF [email or web address]) Knee Goniometric Range of Motion Knee ROM Limitations Comments AROM in supine: Right knee 12-90 deg Left knee 8-105 deg PT-OP-M Strength Start: 07/21/20 12:09 Freq: Status: Active Protocol: Document 08/11/20 11:55 OF (Rec: 08/11/20 11:58 OF [email or web address]) Knee Strength Knee Manual Muscle Testing Left Flexion (S2) 5 Normal Extension (L3) 4+ Good+ Right Flexion (S2) 3 Fair Extension (L3) 3 Fair Comments Pt reports pain with MMT flexion PT-OP-Q Treatments Start: 07/21/20 12:09 Freq: Status: Active Protocol: Document 08/25/20 12:00 DCW (Rec: 08/25/20 12:40 DCW [id number]) Cardio Equipment Recumbent Bicycle Duration (Minutes) 10 Resistance 1 Seat Position 2 Other 1/2 revolutions -> full revolutions Gym Equipment Therapeutic Ball Knee flexion Exercise Details Flexion /c strap Ball Size/Color Red - 55 cm Body Position Supine Reps/Duration 5 hold x10 Therapeutic Exercises Supine Exercises Knee Extension Stretch Side right Reps/Minutes 60 hold SAQ Side right Reps/Minutes 2x15 slr Side right Reps/Minutes 2x10 Comments cues for quad contraction, attempting to increase knee ext Standing Exercises Hip Abduction Side bilateral Resistance Lv 2 Equipment Used T-band Hip extension Side bilateral Resistance Lv 2 Equipment Used T-band TKE Side bilateral Resistance Lv 2 Equipment Used T-band step up/down Side right Reps/Minutes 3x10 Comments cues for eccentric control, increased knee ext with stance heel/toe Side bilateral Equipment Used ANA Reps/Minutes 3x10 Comments gastroc stretch 3x30 sec PT-OP-T Assessment and Plan Start: 07/21/20 12:09 Freq: Status: Active Protocol: Document 08/25/20 12:00 DCW (Rec: 08/25/20 12:40 DCW [id number]) Physical Therapy Assessment Impairments Impairments Gait,Pain,ROM,Soft Tissue Mobility,Strength Assessment Summary Assessment Pt did very well with additional exercises, showing some good progress with gait with and without walker. Does require repeated instruction on most exercises before performing correctly. Physical Therapy Plan Frequency and Duration Frequency of Treatment 2x/Week Duration of Treatment 8 weeks Plan of Care Start Date 07/22/20 Plan of Care End Date 09/22/20 Next Visit Focus/Plan Next Visit Plan progress AAROM for knee flexion, scooting, knee ext with hold, step downs. Cane assessment if improved sequencing. Ice post tx x10min .
--- NOTE | 2020-08-27 15:44 | PT.OTN ---
Current Diagnoses Unilateral primary osteoarthritis, right knee (08/27/20) Physical Therapy Treatment Note PT-OP-A Visit Information Start: 07/21/20 12:09 Freq: Status: Active Protocol: Document 08/27/20 11:58 OF (Rec: 08/27/20 15:44 OF [email or web address]) Out-Patient Physical Therapy Visit Information Visit Information Visit Type Treatment Note Visit Start Time 11:16 Visit Stop Time 11:58 Total Visit Minutes 42 Visit Number 6 Evaluation Information Evaluation Date 07/22/20 PT-OP-B Current Condition Start: 07/21/20 12:09 Freq: Status: Active Protocol: Document 08/11/20 11:55 OF (Rec: 08/11/20 11:58 OF [email or web address]) Current Condition History of Current Condition Onset Date 1 year ago History of Current Condition Pt states that he had PT in the past after knee injections . He does some martial arts. 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 He has trouble with his left knee as well and has trouble walking. He has not had a fall . PMH: dizziness in the past that is better, pt's writing is altered and he presents with what sounds like a cleft palate, hypothyroidism, SOB that he reports is more troublesome with mask, high BP , pt has some frequent spontaneous movement of limbs, poor dentition. Pt lives in a basement apartment. He does not have a walker. He has trouble standing for a long period of time. His legs do not like steps. Treatment Goals Patient/Caregiver Goals To get better Prior Functional Status Baseline Function- ADL's Independent Baseline Function- Mobility Independent Current Functional Impairments (Reported) Functional Limitations- Other Pt is unable to AMB without AD , he has poor dynamic balance and has loss of ROM, weakness, and pain in R knee. PT-OP-C Subjective Start: 07/21/20 12:09 Freq: Status: Active Protocol: Document 08/27/20 11:58 OF (Rec: 08/27/20 15:44 OF [email or web address]) OP-PT Subjective Patient Comments Patient Comments Pt reports improved sleep, improved AMB Patient Reported Progress Improving OP-PT Pain Assessment Location r knee Intensity 2 Scale Used Numeric (0 - 10) Description Aching,Burning,Tightness Frequency Frequent Pain Aggravating Factors ADL's,Activity,Exercise, Standing Pain Alleviating Factors Cold,Medication PT-OP-G Mobility & Gait Start: 07/21/20 12:09 Freq: Status: Active Protocol: Document 08/11/20 11:55 OF (Rec: 08/11/20 11:58 OF [email or web address]) OP Gait Assessment Gait Gait Assistance Required: Standby Assistance Distance (Feet) 150 Able to Maintain Weight Bearing Status Yes During Gait Assistive Devices Assistive Device Front Wheeled Walker Gait Deviations General Gait Pattern Antalgic,Decreased Stride Length,Lateral Trunk Lean Factors Limiting Gait Function Factors Limiting Gait Function Decreased Strength,Limited Range of Motion,Pain PT-OP-K Range of Motion Start: 07/21/20 12:09 Freq: Status: Active Protocol: Document 08/11/20 11:55 OF (Rec: 08/11/20 11:58 OF [email or web address]) Knee Goniometric Range of Motion Knee ROM Limitations Comments AROM in supine: Right knee 12-90 deg Left knee 8-105 deg PT-OP-M Strength Start: 07/21/20 12:09 Freq: Status: Active Protocol: Document 08/11/20 11:55 OF (Rec: 08/11/20 11:58 OF [email or web address]) Knee Strength Knee Manual Muscle Testing Left Flexion (S2) 5 Normal Extension (L3) 4+ Good+ Right Flexion (S2) 3 Fair Extension (L3) 3 Fair Comments Pt reports pain with MMT flexion PT-OP-Q Treatments Start: 07/21/20 12:09 Freq: Status: Active Protocol: Document 08/27/20 11:58 OF (Rec: 08/27/20 15:44 OF [email or web address]) Cardio Equipment Recumbent Bicycle Duration (Minutes) 10 Resistance 1 Seat Position 2 Other full revolutions Therapeutic Exercises Supine Exercises Knee Extension Stretch Side right Reps/Minutes 60 hold x3 long arc quad Side right Reps/Minutes 3x10 Comments cues for full extension AP and HS supine and sitting Side bilateral Comments Pt demos right LE HS supine, B APs Standing Exercises TKE Side bilateral Resistance step up Comments 3x5 step up/down Side right Reps/Minutes 3x10 Comments cues for eccentric control, increased knee ext with stance minisquats Side bilateral Reps/Minutes 3x10 Comments cues for extending hips, eccentric control and knee extension with standing heel/toe Side bilateral Reps/Minutes 3x10 Gait Training Gait Activity fww Description level surfaces Device Used cane Level of Assistance sba Distance/Duration 150ft x5 Comments cane trial, pt has improved gait pattern after demo for AD placement. Agreeable to using cane if inside, FWW at home PT-OP-T Assessment and Plan Start: 07/21/20 12:09 Freq: Status: Active Protocol: Document 08/27/20 11:58 OF (Rec: 08/27/20 15:44 OF [email or web address]) Physical Therapy Assessment Rehab Potential Rehabilitation Potential Excellent Evaluation Complexity Number of Personal Factors/Comorbidities 1-2 Number of Body Systems Impaired 1-2 Clinical Presentation at Evaluation Stable Impairments Impairments Pain,Soft Tissue Mobility, Strength Progress Towards Goals Progress Towards Goals Progressing Toward Goals Assessment Summary Assessment Pt performs HEP well, improved demo with cane for AMB. Aware of Fww for AMB outdoors to reduce fall risk Physical Therapy Plan Frequency and Duration Frequency of Treatment 2x/Week Next Visit Focus/Plan Next Note Type Treatment Note Next Visit Plan progress AAROM for knee flexion, scooting, knee ext with hold, step downs. Cane assessment if improved sequencing. Ice post tx x10min .
--- NOTE | 2020-09-01 12:39 | PT.OTN ---
Current Diagnoses Unilateral primary osteoarthritis, right knee (09/01/20) Physical Therapy Treatment Note PT-OP-A Visit Information Start: 07/21/20 12:09 Freq: Status: Active Protocol: Document 09/01/20 11:56 OF (Rec: 09/01/20 12:04 OF [id number]) Out-Patient Physical Therapy Visit Information Visit Information Visit Type Treatment Note Visit Start Time 11:16 Visit Stop Time 11:57 Total Visit Minutes 41 Visit Number 7 Evaluation Information Evaluation Date 07/22/20 PT-OP-B Current Condition Start: 07/21/20 12:09 Freq: Status: Active Protocol: Document 08/11/20 11:55 OF (Rec: 08/11/20 11:58 OF [email or web address]) Current Condition History of Current Condition Onset Date 1 year ago History of Current Condition Pt states that he had PT in the past after knee injections . He does some martial arts. 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 He has trouble with his left knee as well and has trouble walking. He has not had a fall . PMH: dizziness in the past that is better, pt's writing is altered and he presents with what sounds like a cleft palate, hypothyroidism, SOB that he reports is more troublesome with mask, high BP , pt has some frequent spontaneous movement of limbs, poor dentition. Pt lives in a basement apartment. He does not have a walker. He has trouble standing for a long period of time. His legs do not like steps. Treatment Goals Patient/Caregiver Goals To get better Prior Functional Status Baseline Function- ADL's Independent Baseline Function- Mobility Independent Current Functional Impairments (Reported) Functional Limitations- Other Pt is unable to AMB without AD , he has poor dynamic balance and has loss of ROM, weakness, and pain in R knee. PT-OP-C Subjective Start: 07/21/20 12:09 Freq: Status: Active Protocol: Document 09/01/20 11:56 OF (Rec: 09/01/20 11:40 OF [id number]) OP-PT Subjective Patient Comments Patient Comments pt states he has completed standing exercise and HEP Patient Reported Progress Improving OP-PT Pain Assessment Pain Assessment Grid Paper Pain Assessment Grid Completed No Location r knee Intensity 1 Scale Used Numeric (0 - 10) Description Aching,Burning,Tightness Frequency Frequent Pain Aggravating Factors ADL's,Activity,Exercise, Standing Pain Alleviating Factors Cold,Medication PT-OP-G Mobility & Gait Start: 07/21/20 12:09 Freq: Status: Active Protocol: Document 08/11/20 11:55 OF (Rec: 08/11/20 11:58 OF [email or web address]) OP Gait Assessment Gait Gait Assistance Required: Standby Assistance Distance (Feet) 150 Able to Maintain Weight Bearing Status Yes During Gait Assistive Devices Assistive Device Front Wheeled Walker Gait Deviations General Gait Pattern Antalgic,Decreased Stride Length,Lateral Trunk Lean Factors Limiting Gait Function Factors Limiting Gait Function Decreased Strength,Limited Range of Motion,Pain PT-OP-K Range of Motion Start: 07/21/20 12:09 Freq: Status: Active Protocol: Document 08/11/20 11:55 OF (Rec: 08/11/20 11:58 OF [email or web address]) Knee Goniometric Range of Motion Knee ROM Limitations Comments AROM in supine: Right knee 12-90 deg Left knee 8-105 deg PT-OP-M Strength Start: 07/21/20 12:09 Freq: Status: Active Protocol: Document 08/11/20 11:55 OF (Rec: 08/11/20 11:58 OF [email or web address]) Knee Strength Knee Manual Muscle Testing Left Flexion (S2) 5 Normal Extension (L3) 4+ Good+ Right Flexion (S2) 3 Fair Extension (L3) 3 Fair Comments Pt reports pain with MMT flexion PT-OP-Q Treatments Start: 07/21/20 12:09 Freq: Status: Active Protocol: Document 09/01/20 11:56 OF (Rec: 09/01/20 11:40 OF [id number]) Cardio Equipment Recumbent Bicycle Duration (Minutes) 10 Resistance 1 Seat Position 2 Other full revolutions Therapeutic Exercises Supine Exercises Knee Extension Stretch Side right Reps/Minutes 60 hold x3 long arc quad Side right Resistance 2# Reps/Minutes 3x10 Comments cues for full extension Standing Exercises Hip Abduction Side bilateral Resistance Lv 2 Equipment Used T-band Hip extension Side bilateral Resistance Lv 2 Equipment Used T-band TKE Side bilateral Resistance step up Comments 3x5 step up/down Side right Reps/Minutes 3x10 Comments cues for widening CORNELIO heel/toe Side bilateral Reps/Minutes 3x10 Gait Training Gait Activity fww Description level surfaces Device Used cane Level of Assistance sba Distance/Duration 150ft x5 Comments improved AD placement, improved pushoff and knee flexion Self-Care/Home Management Treatment Education Patient Education Fall Risk,Home Exercise Program,Pain Management PT-OP-T Assessment and Plan Start: 07/21/20 12:09 Freq: Status: Active Protocol: Document 09/01/20 11:56 OF (Rec: 09/01/20 12:04 OF [id number]) Physical Therapy Assessment Rehab Potential Rehabilitation Potential Good Evaluation Complexity Number of Personal Factors/Comorbidities 1-2 Number of Body Systems Impaired 1-2 Clinical Presentation at Evaluation Stable Impairments Impairments Gait,Pain,ROM Progress Towards Goals Progress Towards Goals Progressing Toward Goals Assessment Summary Assessment Pt has improved gait pattern with cane, improved gait speed . He has good HEP awareness, demo flexion 115, ext 172 today. He is agreeable and demonsrates AAORM for ext. Physical Therapy Plan Frequency and Duration Frequency of Treatment 2x/Week Duration of Treatment 8 weeks Plan of Care Start Date 07/22/20 Plan of Care End Date 09/22/20 Next Visit Focus/Plan Next Note Type Treatment Note Next Visit Plan continue to progress AAROM for R knee, cues for hip strengthening, re assess ROM
--- NOTE | 2020-09-03 12:45 | PT.OTN ---
Current Diagnoses Unilateral primary osteoarthritis, right knee (09/03/20) Physical Therapy Treatment Note PT-OP-A Visit Information Start: 07/21/20 12:09 Freq: Status: Active Protocol: Document 09/03/20 12:00 DCW (Rec: 09/03/20 12:45 DCW [id number]) Out-Patient Physical Therapy Visit Information Visit Information Visit Type Treatment Note Visit Start Time 12:00 Visit Stop Time 12:45 Total Visit Minutes 45 Visit Number 8 Evaluation Information Evaluation Date 07/22/20 PT-OP-B Current Condition Start: 07/21/20 12:09 Freq: Status: Active Protocol: Document 08/11/20 11:55 OF (Rec: 08/11/20 11:58 OF [email or web address]) Current Condition History of Current Condition Onset Date 1 year ago History of Current Condition Pt states that he had PT in the past after knee injections . He does some martial arts. He has had TKA 6/. He has trouble with his left knee as well and has trouble walking. He has not had a fall . PMH: dizziness in the past that is better, pt's writing is altered and he presents with what sounds like a cleft palate, hypothyroidism, SOB that he reports is more troublesome with mask, high BP , pt has some frequent spontaneous movement of limbs, poor dentition. Pt lives in a basement apartment. He does not have a walker. He has trouble standing for a long period of time. His legs do not like steps. Treatment Goals Patient/Caregiver Goals To get better Prior Functional Status Baseline Function- ADL's Independent Baseline Function- Mobility Independent Current Functional Impairments (Reported) Functional Limitations- Other Pt is unable to AMB without AD , he has poor dynamic balance and has loss of ROM, weakness, and pain in R knee. PT-OP-C Subjective Start: 07/21/20 12:09 Freq: Status: Active Protocol: Document 09/03/20 12:00 DCW (Rec: 09/03/20 12:45 DCW [id number]) OP-PT Subjective Patient Comments Patient Comments Pt reports his knee is feeling pretty good. PT-OP-G Mobility & Gait Start: 07/21/20 12:09 Freq: Status: Active Protocol: Document 08/11/20 11:55 OF (Rec: 08/11/20 11:58 OF [email or web address]) OP Gait Assessment Gait Gait Assistance Required: Standby Assistance Distance (Feet) 150 Able to Maintain Weight Bearing Status Yes During Gait Assistive Devices Assistive Device Front Wheeled Walker Gait Deviations General Gait Pattern Antalgic,Decreased Stride Length,Lateral Trunk Lean Factors Limiting Gait Function Factors Limiting Gait Function Decreased Strength,Limited Range of Motion,Pain PT-OP-K Range of Motion Start: 07/21/20 12:09 Freq: Status: Active Protocol: Document 08/11/20 11:55 OF (Rec: 08/11/20 11:58 OF [email or web address]) Knee Goniometric Range of Motion Knee ROM Limitations Comments AROM in supine: Right knee 12-90 deg Left knee 8-105 deg PT-OP-M Strength Start: 07/21/20 12:09 Freq: Status: Active Protocol: Document 08/11/20 11:55 OF (Rec: 08/11/20 11:58 OF [email or web address]) Knee Strength Knee Manual Muscle Testing Left Flexion (S2) 5 Normal Extension (L3) 4+ Good+ Right Flexion (S2) 3 Fair Extension (L3) 3 Fair Comments Pt reports pain with MMT flexion PT-OP-Q Treatments Start: 07/21/20 12:09 Freq: Status: Active Protocol: Document 09/03/20 12:00 DCW (Rec: 09/03/20 12:45 DCW [id number]) Cardio Equipment Recumbent Bicycle Duration (Minutes) 10 Resistance 4 Seat Position 2 Therapeutic Exercises Supine Exercises Knee Extension Stretch Side right Reps/Minutes 60 hold x3 SAQ Supine Exercise Name SAQ Side right Resistance 5# Reps/Minutes 2x15 Sitting Exercises LAQ Sitting Exercise Name LAQ Side right Resistance 5# Hamstring curls Sitting Exercise Name HS Curls Side right Resistance Lv 3 Equipment Used T-band Standing Exercises Hip Abduction Side bilateral Resistance Lv 2 Equipment Used T-band Hip extension Side bilateral Resistance Lv 2 Equipment Used T-band TKE Side bilateral Resistance step up Comments 3x5 step up/down Side right Reps/Minutes 3x10 Comments cues for widening CORNELIO Other Exercises Flexion step stretch Other Exercise Name R knee flexion stretch Side right Equipment Used 6 steps PT-OP-T Assessment and Plan Start: 07/21/20 12:09 Freq: Status: Active Protocol: Document 09/03/20 12:00 DCW (Rec: 09/03/20 12:45 DCW [id number]) Physical Therapy Assessment Impairments Impairments Gait,Pain,ROM Goals 5 Skilled Nursing Goal (LTG) Pt will perform 12 reps sit to stand without UE support in 30 sec to improve functional transfers and balance by . LTG Duration 8 weeks 4 Skilled Nursing Goal (LTG) Pt will gait train at least 1400 feet in 6 minutes without AD to improve community ambulation by 09/22/20. LTG Duration 8 weeks 3 Skilled Nursing Goal (LTG) Pt will perform progressive HEP with I including flexibility, strengthening, balance and gait to improve function and mobility by . LTG Duration 8 weeks 2 Skilled Nursing Goal (LTG) Pt will present with improved active right knee ROM in hook lying to at least 5-100 deg to improve functional range for sit to stands by 09/22/20. LTG Duration 8 weeks 1 Impairment LEF score 39/80 Upholstery Estimator Goal (LTG) Pt will present with an improved LEF score to reflect no more than 30% impairment to reflect improved functional mobility and pain by 09/22/20. LTG Duration 8 weeks Assessment Summary Assessment Pt progressing very well at the moment, showing good improvement with ROM. Pt has completely stopped using the FWW, not using any device when in his home. Physical Therapy Plan Frequency and Duration Frequency of Treatment 2x/Week Duration of Treatment 8 weeks Plan of Care Start Date 07/22/20 Plan of Care End Date 09/22/20 Next Visit Focus/Plan Next Note Type Treatment Note Next Visit Plan continue to progress AAROM for R knee, cues for hip strengthening, re assess ROM
--- NOTE | 2020-09-09 12:44 | PT.OTN ---
Current Diagnoses Unilateral primary osteoarthritis, right knee (09/09/20) Physical Therapy Treatment Note PT-OP-A Visit Information Start: 07/21/20 12:09 Freq: Status: Active Protocol: Document 09/09/20 12:39 OF (Rec: 09/09/20 12:44 OF [email or web address]) Out-Patient Physical Therapy Visit Information Visit Information Visit Type Treatment Note Visit Start Time 08:15 Visit Stop Time 08:55 Total Visit Minutes 40 Visit Number 9 Evaluation Information Evaluation Date 07/22/20 PT-OP-B Current Condition Start: 07/21/20 12:09 Freq: Status: Active Protocol: Document 08/11/20 11:55 OF (Rec: 08/11/20 11:58 OF [email or web address]) Current Condition History of Current Condition Onset Date 1 year ago History of Current Condition Pt states that he had PT in the past after knee injections . He does some martial arts. 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 He has trouble with his left knee as well and has trouble walking. He has not had a fall . PMH: dizziness in the past that is better, pt's writing is altered and he presents with what sounds like a cleft palate, hypothyroidism, SOB that he reports is more troublesome with mask, high BP , pt has some frequent spontaneous movement of limbs, poor dentition. Pt lives in a basement apartment. He does not have a walker. He has trouble standing for a long period of time. His legs do not like steps. Treatment Goals Patient/Caregiver Goals To get better Prior Functional Status Baseline Function- ADL's Independent Baseline Function- Mobility Independent Current Functional Impairments (Reported) Functional Limitations- Other Pt is unable to AMB without AD , he has poor dynamic balance and has loss of ROM, weakness, and pain in R knee. PT-OP-C Subjective Start: 07/21/20 12:09 Freq: Status: Active Protocol: Document 09/09/20 12:39 OF (Rec: 09/09/20 12:44 OF [email or web address]) OP-PT Subjective Patient Comments Patient Comments Pt states he has been using cane predominantly Patient Reported Progress Improving OP-PT Pain Assessment Pain Assessment Grid Paper Pain Assessment Grid Completed No Location r knee Intensity 2 Scale Used Numeric (0 - 10) Description Aching,Burning,Tightness Frequency Frequent Pain Duration 4/10 Pain Aggravating Factors ADL's,Activity,Exercise, Standing Pain Alleviating Factors Cold,Medication PT-OP-G Mobility & Gait Start: 07/21/20 12:09 Freq: Status: Active Protocol: Document 08/11/20 11:55 OF (Rec: 08/11/20 11:58 OF [facility]) OP Gait Assessment Gait Gait Assistance Required: Standby Assistance Distance (Feet) 150 Able to Maintain Weight Bearing Status Yes During Gait Assistive Devices Assistive Device Front Wheeled Walker Gait Deviations General Gait Pattern Antalgic,Decreased Stride Length,Lateral Trunk Lean Factors Limiting Gait Function Factors Limiting Gait Function Decreased Strength,Limited Range of Motion,Pain PT-OP-K Range of Motion Start: 07/21/20 12:09 Freq: Status: Active Protocol: Document 08/11/20 11:55 OF (Rec: 08/11/20 11:58 OF [facility]) Knee Goniometric Range of Motion Knee ROM Limitations Comments AROM in supine: Right knee 12-90 deg Left knee 8-105 deg PT-OP-M Strength Start: 07/21/20 12:09 Freq: Status: Active Protocol: Document 08/11/20 11:55 OF (Rec: 08/11/20 11:58 OF [facility]) Knee Strength Knee Manual Muscle Testing Left Flexion (S2) 5 Normal Extension (L3) 4+ Good+ Right Flexion (S2) 3 Fair Extension (L3) 3 Fair Comments Pt reports pain with MMT flexion PT-OP-Q Treatments Start: 07/21/20 12:09 Freq: Status: Active Protocol: Document 09/09/20 12:39 OF (Rec: 09/09/20 12:44 OF [facility]) Cardio Equipment Recumbent Bicycle Duration (Minutes) 10 Resistance 8 Seat Position 2 Other fatigues quickly, full revolutions Therapeutic Exercises Supine Exercises Knee Extension Stretch Side right Reps/Minutes 60 hold x3 slr Side right Reps/Minutes 2x10 Comments cues for quad contraction, attempting to increase knee ext long arc quad Side right Resistance 5# Reps/Minutes 3x10 Comments cues for full extension Sitting Exercises Hamstring curls Sitting Exercise Name HS Curls Side right Resistance Lv 3 Equipment Used T-band Standing Exercises TKE Side bilateral Resistance step up Comments 3x10 step up/down Side right Reps/Minutes 3x10 Comments cues for widening CORNELIO minisquats Side bilateral Reps/Minutes 3x10 Comments cues for extending hips, eccentric control and knee extension with standing heel/toe Side bilateral Reps/Minutes 3x10 Manual Therapy Treatment Joint Mobilizations A/P and P/A R knee Joint R knee Direction A/P and P/A Grade III Body Position Sitting Reps/Duration [id number] Self-Care/Home Management Treatment Education Patient Education Body Mechanics,Home Exercise Program,Pain Management PT-OP-T Assessment and Plan Start: 07/21/20 12:09 Freq: Status: Active Protocol: Document 09/09/20 12:39 OF (Rec: 09/09/20 12:44 OF [email or web address]) Physical Therapy Assessment Rehab Potential Rehabilitation Potential Good Evaluation Complexity Number of Personal Factors/Comorbidities 1-2 Number of Body Systems Impaired 1-2 Clinical Presentation at Evaluation Stable Impairments Impairments Activity Tolerance,Gait,ROM, Strength Goals 5 Residential Goal (LTG) Pt will perform 12 reps sit to stand without UE support in 30 sec to improve functional transfers and balance by . LTG Duration 8 weeks 4 Systems Planner Goal (LTG) Pt will gait train at least 1400 feet in 6 minutes without AD to improve community ambulation by 09/22/20. LTG Duration 8 weeks 3 Residential Goal (LTG) Pt will perform progressive HEP with I including flexibility, strengthening, balance and gait to improve function and mobility by . LTG Duration 8 weeks 2 Systems Planner Goal (LTG) Pt will present with improved active right knee ROM in hook lying to at least 5-100 deg to improve functional range for sit to stands by 09/22/20. LTG Duration 8 weeks 1 Impairment LEF score 39/80 Systems Planner Goal (LTG) Pt will present with an improved LEF score to reflect no more than 30% impairment to reflect improved functional mobility and pain by 09/22/20. LTG Duration 8 weeks Progress Towards Goals Progress Towards Goals Progressing Toward Goals Assessment Summary Assessment Pt has improved gait pattern with cane, he continues to have limited extension. He has improved quad recruitment with LAQ and SLR. Physical Therapy Plan Frequency and Duration Frequency of Treatment 2x/Week Duration of Treatment 8 weeks Plan of Care Start Date 07/22/20 Plan of Care End Date 09/22/20 Next Visit Focus/Plan Next Note Type Treatment Note Next Visit Plan progress TKE, quad control with dynamic surfaces
--- NOTE | 2020-09-11 10:42 | PT.OTN ---
Current Diagnoses Unilateral primary osteoarthritis, right knee (09/11/20) Physical Therapy Treatment Note PT-OP-A Visit Information Start: 07/21/20 12:09 Freq: Status: Active Protocol: Document 09/11/20 09:40 OF (Rec: 09/11/20 10:42 OF [id number]) Out-Patient Physical Therapy Visit Information Visit Information Visit Type Treatment Note Visit Start Time 09:01 Visit Stop Time 09:40 Total Visit Minutes 39 Visit Number 9 Evaluation Information Evaluation Date 07/22/20 PT-OP-B Current Condition Start: 07/21/20 12:09 Freq: Status: Active Protocol: Document 08/11/20 11:55 OF (Rec: 08/11/20 11:58 OF [email or web address]) Current Condition History of Current Condition Onset Date 1 year ago History of Current Condition Pt states that he had PT in the past after knee injections . He does some martial arts. 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 He has trouble with his left knee as well and has trouble walking. He has not had a fall . PMH: dizziness in the past that is better, pt's writing is altered and he presents with what sounds like a cleft palate, hypothyroidism, SOB that he reports is more troublesome with mask, high BP , pt has some frequent spontaneous movement of limbs, poor dentition. Pt lives in a basement apartment. He does not have a walker. He has trouble standing for a long period of time. His legs do not like steps. Treatment Goals Patient/Caregiver Goals To get better Prior Functional Status Baseline Function- ADL's Independent Baseline Function- Mobility Independent Current Functional Impairments (Reported) Functional Limitations- Other Pt is unable to AMB without AD , he has poor dynamic balance and has loss of ROM, weakness, and pain in R knee. PT-OP-C Subjective Start: 07/21/20 12:09 Freq: Status: Active Protocol: Document 09/11/20 09:40 OF (Rec: 09/11/20 10:42 OF [id number]) OP-PT Subjective Patient Comments Patient Comments pt states he has been performing HEP as instructed, improved tolerance for AMB Patient Reported Progress Improving OP-PT Pain Assessment Pain Assessment Grid Paper Pain Assessment Grid Completed No: pt denies pain today PT-OP-G Mobility & Gait Start: 07/21/20 12:09 Freq: Status: Active Protocol: Document 08/11/20 11:55 OF (Rec: 08/11/20 11:58 OF [email or web address]) OP Gait Assessment Gait Gait Assistance Required: Standby Assistance Distance (Feet) 150 Able to Maintain Weight Bearing Status Yes During Gait Assistive Devices Assistive Device Front Wheeled Walker Gait Deviations General Gait Pattern Antalgic,Decreased Stride Length,Lateral Trunk Lean Factors Limiting Gait Function Factors Limiting Gait Function Decreased Strength,Limited Range of Motion,Pain PT-OP-K Range of Motion Start: 07/21/20 12:09 Freq: Status: Active Protocol: Document 08/11/20 11:55 OF (Rec: 08/11/20 11:58 OF [email or web address]) Knee Goniometric Range of Motion Knee ROM Limitations Comments AROM in supine: Right knee 12-90 deg Left knee 8-105 deg PT-OP-M Strength Start: 07/21/20 12:09 Freq: Status: Active Protocol: Document 08/11/20 11:55 OF (Rec: 08/11/20 11:58 OF [email or web address]) Knee Strength Knee Manual Muscle Testing Left Flexion (S2) 5 Normal Extension (L3) 4+ Good+ Right Flexion (S2) 3 Fair Extension (L3) 3 Fair Comments Pt reports pain with MMT flexion PT-OP-Q Treatments Start: 07/21/20 12:09 Freq: Status: Active Protocol: Document 09/11/20 09:40 OF (Rec: 09/11/20 10:42 OF [id number]) Cardio Equipment Recumbent Bicycle Duration (Minutes) 10 Resistance 5 Seat Position 2 Other cues for R LE recruitment Therapeutic Exercises Supine Exercises Knee Extension Stretch Side right Reps/Minutes 60 hold x3 Comments overpressure for extension long arc quad Side right Resistance 5# Reps/Minutes 3x10 Comments cues for full extension AP and HS supine and sitting Side bilateral Comments Pt demos right LE HS supine, B APs Sitting Exercises Hamstring curls Sitting Exercise Name HS Curls Side right Resistance Lv 3 Equipment Used T-band Standing Exercises TKE Side bilateral Resistance step up Comments 3x10 minisquats Side bilateral Reps/Minutes 3x10 Comments cues for eccentric control and knee extension with standing Other Exercises Flexion step stretch Other Exercise Name R knee flexion stretch Side right Equipment Used 6 steps Gait Training Gait Activity fww Description gait training without AD, cues for increased stride length Comments demo for avoiding lateral lean with R stance Manual Therapy Treatment Joint Mobilizations A/P and P/A R knee Joint R knee Direction A/P and P/A Grade III Body Position Sitting Reps/Duration [id number] Self-Care/Home Management Treatment Education Patient Education Home Exercise Program PT-OP-T Assessment and Plan Start: 07/21/20 12:09 Freq: Status: Active Protocol: Document 09/11/20 09:40 OF (Rec: 09/11/20 10:42 OF [id number]) Physical Therapy Assessment Rehab Potential Rehabilitation Potential Excellent Evaluation Complexity Number of Personal Factors/Comorbidities 1-2 Number of Body Systems Impaired 1-2 Clinical Presentation at Evaluation Stable Impairments Impairments Gait,Pain Goals 5 Hospice Home Health Aide Goal (LTG) Pt will perform 12 reps sit to stand without UE support in 30 sec to improve functional transfers and balance by . LTG Duration 8 weeks 4 Hospice Home Health Aide Goal (LTG) Pt will gait train at least 1400 feet in 6 minutes without AD to improve community ambulation by 09/22/20. LTG Duration 8 weeks 3 Hosp[facility] Home Health Aide Goal (LTG) Pt will perform progressive HEP with I including flexibility, strengthening, balance and gait to improve function and mobility by . LTG Duration 8 weeks 2 Longterm Goal (LTG) Pt will present with improved active right knee ROM in hook lying to at least 5-100 deg to improve functional range for sit to stands by 09/22/20. LTG Duration MET 1 Impairment LEF score 39/80 Longterm Goal (LTG) Pt will present with an improved LEF score to reflect no more than 30% impairment to reflect improved functional mobility and pain by 09/22/20. LTG Duration 8 weeks Progress Towards Goals Progress Towards Goals Progressing Toward Goals Assessment Summary Assessment Miguel Ángel has improved ROM and strength in R knee. He is aware of DC next visit. He is progressing off cane with improved gait kinematics. FLex 115, Ext 175 today. Physical Therapy Plan Frequency and Duration Duration of Treatment 8 weeks Plan of Care Start Date 07/22/20 Plan of Care End Date 09/22/20 Next Visit Focus/Plan Next Note Type Treatment Note Next Visit Plan DC. reteach AMB without cane if needed. Progress step ups for TKE and quad recruitment.
--- NOTE | 2020-09-15 09:16 | PT.OTN ---
Current Diagnoses Unilateral primary osteoarthritis, right knee (09/15/20) Physical Therapy Treatment Note PT-OP-A Visit Information Start: 07/21/20 12:09 Freq: Status: Active Protocol: Document 09/15/20 08:18 SP (Rec: 09/15/20 12:17 SP [id number]) Out-Patient Physical Therapy Visit Information Visit Information Visit Type Treatment Note Visit Note Incident report of fall during tx, completed. Visit Start Time 08:18 Visit Stop Time 09:16 Total Visit Minutes 58 Visit Number 10 Number of ECONOMIC DEVELOPMENT SPECIALIST Visits 1 Evaluation Information Evaluation Date 07/22/20 PT-OP-B Current Condition Start: 07/21/20 12:09 Freq: Status: Active Protocol: Document 08/11/20 11:55 OF (Rec: 08/11/20 11:58 OF [email or web address]) Current Condition History of Current Condition Onset Date 1 year ago History of Current Condition Pt states that he had PT in the past after knee injections . He does some martial arts. 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 He has trouble with his left knee as well and has trouble walking. He has not had a fall . PMH: dizziness in the past that is better, pt's writing is altered and he presents with what sounds like a cleft palate, hypothyroidism, SOB that he reports is more troublesome with mask, high BP , pt has some frequent spontaneous movement of limbs, poor dentition. Pt lives in a basement apartment. He does not have a walker. He has trouble standing for a long period of time. His legs do not like steps. Treatment Goals Patient/Caregiver Goals To get better Prior Functional Status Baseline Function- ADL's Independent Baseline Function- Mobility Independent Current Functional Impairments (Reported) Functional Limitations- Other Pt is unable to AMB without AD , he has poor dynamic balance and has loss of ROM, weakness, and pain in R knee. PT-OP-C Subjective Start: 07/21/20 12:09 Freq: Status: Active Protocol: Document 09/15/20 08:18 SP (Rec: 09/15/20 12:17 SP [id number]) OP-PT Subjective Patient Comments Patient Comments Pt states sees Dr Good next week, has no more PT appts scheduled and so not sure if will be done after today? ECONOMIC DEVELOPMENT SPECIALIST suggested to schedule more appts for next 2 weeks and will speak withPTs for [facility] to continue along with recommendation of ortho. Pt states is really stiff in am when wakes. Is compliant with HEP 1x day at least, walks the cap darlene yary. Patient Reported Progress Improving Patient Questionnaires Lower Extremity Functional Scale LEFS Score 49 LEFS Impairment 20 to 39% Impaired (Score 48- 62) PT-OP-G Mobility & Gait Start: 07/21/20 12:09 Freq: Status: Active Protocol: Document 08/11/20 11:55 OF (Rec: 08/11/20 11:58 OF [email or web address]) OP Gait Assessment Gait Gait Assistance Required: Standby Assistance Distance (Feet) 150 Able to Maintain Weight Bearing Status Yes During Gait Assistive Devices Assistive Device Front Wheeled Walker Gait Deviations General Gait Pattern Antalgic,Decreased Stride Length,Lateral Trunk Lean Factors Limiting Gait Function Factors Limiting Gait Function Decreased Strength,Limited Range of Motion,Pain PT-OP-K Range of Motion Start: 07/21/20 12:09 Freq: Status: Active Protocol: Document 08/11/20 11:55 OF (Rec: 08/11/20 11:58 OF [email or web address]) Knee Goniometric Range of Motion Knee ROM Limitations Comments AROM in supine: Right knee 12-90 deg Left knee 8-105 deg PT-OP-M Strength Start: 07/21/20 12:09 Freq: Status: Active Protocol: Document 08/11/20 11:55 OF (Rec: 08/11/20 11:58 OF [email or web address]) Knee Strength Knee Manual Muscle Testing Left Flexion (S2) 5 Normal Extension (L3) 4+ Good+ Right Flexion (S2) 3 Fair Extension (L3) 3 Fair Comments Pt reports pain with MMT flexion PT-OP-Q Treatments Start: 07/21/20 12:09 Freq: Status: Active Protocol: Document 09/15/20 08:18 SP (Rec: 09/15/20 12:17 SP [id number]) Cardio Equipment Recumbent Stepper (Sci-Fit) Duration (Minutes) 6 Resistance 3 Seat Position 8 Other UE/ LE use, recumbent not available today Therapeutic Exercises Supine Exercises Knee Extension Stretch Side right Reps/Minutes 60 hold x3 Comments overpressure for extension SAQ Supine Exercise Name SAQ- review HEP Side right Resistance AROM Reps/Minutes 2x15 slr Side right Reps/Minutes 2x10 Comments cues for quad contraction, attempting to increase knee ext Sitting Exercises LAQ Sitting Exercise Name LAQ Side right Resistance AROM Reps/Minutes 2x10 Other Exercises Flexion step stretch Other Exercise Name R knee flexion stretch Side right Equipment Used 6 steps Comments discussed is in his HEP but not performed today Gait Training Gait Activity 6MWT Description assessment for goal Device Used 0 Level of Assistance S Surface firm Distance/Duration 634ft Treatment Focus endurance for community gait Comments completed 634 ft in 4 of 6 min then required seated rest due to tiring and stiffness in R knee & ankle. Self-Care/Home Management Treatment Activities Self-Care/Home Management Activities Extra time spent filling out incident report for fall end of 4 min of 6 min walk test and assessment safety. Pt stated is fine and refused need of furhter ex. Understands to see physician and let PT Anthony know if anything changes. PT-OP-R Modalities Start: 07/21/20 12:09 Freq: Status: Active Protocol: Document 09/15/20 08:18 SP (Rec: 09/15/20 12:17 SP [id number]) Hot Pack/Cold Pack Treatment R knee Location R knee Patient Position Hooklying Treatment Duration (minutes) 10 Patient Tolerance Good Comments good response. PT-OP-T Assessment and Plan Start: 07/21/20 12:09 Freq: Status: Active Protocol: Document 09/15/20 08:18 SP (Rec: 09/15/20 12:17 SP [id number]) Physical Therapy Assessment Goals 5 Principal Examiner Goal (LTG) Pt will perform 12 reps sit to stand without UE support in 30 sec to improve functional transfers and balance by . 09/15/20: progressing: pt is able to complete 10.25 reps in 30 sec. LTG Duration 8 weeks (09/15/20: progressing) 4 Principal Examiner Goal (LTG) Pt will gait train at least 1400 feet in 6 minutes without AD to improve community ambulation by 09/22/20. 09/22/20: progressing: pt is able to complete 634 ft ft in 4 min before ft needed to sit and rest. Unable to complete 6MWT due to decreased strength , endurance and + SOB. Pt did fall trying to sit onto rolling stool before ECONOMIC DEVELOPMENT SPECIALIST could stop him. LTG Duration 8 weeks (09/22/20: progressing) 3 Principal Examiner Goal (LTG) Pt will perform progressive HEP with I including flexibility, strengthening, balance and gait to improve function and mobility by . 09/22/20: progressing HEP: demonstrated post op ex, sit<> stands, discussed standing ex : hip abd, ext, may. LTG Duration 8 weeks 2 Principal Examiner Goal (LTG) Pt will present with improved active right knee ROM in hook lying to at least 5-100 deg to improve functional range for sit to stands by 09/22/20. 09/22/20: progressin- 121 * R knee. LTG Duration MET 1 Impairment LEF score 39/80 Correction Goal (LTG) Pt will present with an improved LEF score to reflect no more than 30% impairment to reflect improved functional mobility and pain by 09/22/20. 09/15/20: progressin-39% impaired. see hand out. LTG Duration 8 weeks Progress Towards Goals Progress Towards Goals Progressing Toward Goals Progress Comments Pt is making gain in goals, gained ROM 6 deg since last tx , able to walk 4 min approx 634 ft before requires seated rest mainly due to tiring and + SOB. Assessment Summary Assessment Pt has follow up with Dr Good tomorrow. ECONOMIC DEVELOPMENT SPECIALIST discussed calling Anthony PT tomorrow after appt to see if ok to DC per Korey PT last note or ortho wants him to continue. ECONOMIC DEVELOPMENT SPECIALIST assessed goals could during appt with gains in ROM, progressing but not bed gait and sit<>stand goals. Pt fell during tx trying to sit on rolling stool (rolled out from under him,see incident report ) to rest after 4 min of 6 MWT and ECONOMIC DEVELOPMENT SPECIALIST unable to stop him. ECONOMIC DEVELOPMENT SPECIALIST assisted him from floor to nearby chair. Pt continued to report no injury from fall, or pain, same stiffness in knees. Pt stated didnt need further assessment to see physician or ER when offered. Agreeble to CP on R knee only. Pt stated felt fine end tx. Pt verbalized understanding of call after ortho appt tomorrow and if need further appts, ECONOMIC DEVELOPMENT SPECIALIST sent message to front otherwise PT Anthony will complete DC to HEP. If pt continues will need updated POC, expires 09/22/20. Physical Therapy Plan Frequency and Duration Frequency of Treatment 2x/wk Duration of Treatment 8 weeks Plan of Care Start Date 07/22/20 Plan of Care End Date 09/22/20 Next Visit Focus/Plan Next Note Type Treatment Note Next Visit Plan DC or continue POC exp 09/22/20 . POC: reteach AMB without cane if needed. Progress step ups for TKE and quad recruitment.
--- NOTE | 2020-09-17 10:03 | PT.OPDS ---
Current Diagnoses Unilateral primary osteoarthritis, right knee (09/15/20) Visit Care Team Role Provider Type Raquel Blanton PA-C Primary Care Provider Non-Staff Specialty: Internal Medicine Address: [address] [place] [address], [id number] Email: [email or web address] Fazal Valenzuela MD Attending Provider Physician Referring Provider Specialty: Orthopedic Surgery Address: [address] [place] [address], [id number] Email: [email or web address] Visit Number Visit Number 10 Discharge Summary PT-OP-B Current Condition Start: 07/21/20 12:09 Freq: Status: Active Protocol: Document 08/11/20 11:55 OF (Rec: 08/11/20 11:58 OF [email or web address]) Current Condition History of Current Condition Onset Date 1 year ago History of Current Condition Pt states that he had PT in the past after knee injections . He does some martial arts. 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 He has trouble with his left knee as well and has trouble walking. He has not had a fall . PMH: dizziness in the past that is better, pt's writing is altered and he presents with what sounds like a cleft palate, hypothyroidism, SOB that he reports is more troublesome with mask, high BP , pt has some frequent spontaneous movement of limbs, poor dentition. Pt lives in a basement apartment. He does not have a walker. He has trouble standing for a long period of time. His legs do not like steps. Treatment Goals Patient/Caregiver Goals To get better Prior Functional Status Baseline Function- ADL's Independent Baseline Function- Mobility Independent Current Functional Impairments (Reported) Functional Limitations- Other Pt is unable to AMB without AD , he has poor dynamic balance and has loss of ROM, weakness, and pain in R knee. PT-OP-C Subjective Start: 07/21/20 12:09 Freq: Status: Active Protocol: Document 09/15/20 08:18 SP (Rec: 09/15/20 12:17 SP [id number]) OP-PT Subjective Patient Comments Patient Comments Pt states sees Dr Good next week, has no more PT appts scheduled and so not sure if will be done after today? CUTTER MACHINE suggested to schedule more appts for next 2 weeks and will speak withPTs for [facility] to continue along with recommendation of ortho. Pt states is really stiff in am when wakes. Is compliant with HEP 1x day at least, walks the cap darlene pringle. Patient Reported Progress Improving Patient Questionnaires Lower Extremity Functional Scale LEFS Score 49 LEFS Impairment 20 to 39% Impaired (Score 48- 62) PT-OP-G Mobility & Gait Start: 07/21/20 12:09 Freq: Status: Active Protocol: Document 08/11/20 11:55 OF (Rec: 08/11/20 11:58 OF [email or web address]) OP Gait Assessment Gait Gait Assistance Required: Standby Assistance Distance (Feet) 150 Able to Maintain Weight Bearing Status Yes During Gait Assistive Devices Assistive Device Front Wheeled Walker Gait Deviations General Gait Pattern Antalgic,Decreased Stride Length,Lateral Trunk Lean Factors Limiting Gait Function Factors Limiting Gait Function Decreased Strength,Limited Range of Motion,Pain PT-OP-K Range of Motion Start: 07/21/20 12:09 Freq: Status: Active Protocol: Document 08/11/20 11:55 OF (Rec: 08/11/20 11:58 OF [email or web address]) Knee Goniometric Range of Motion Knee ROM Limitations Comments AROM in supine: Right knee 12-90 deg Left knee 8-105 deg PT-OP-M Strength Start: 07/21/20 12:09 Freq: Status: Active Protocol: Document 08/11/20 11:55 OF (Rec: 08/11/20 11:58 OF [email or web address]) Knee Strength Knee Manual Muscle Testing Left Flexion (S2) 5 Normal Extension (L3) 4+ Good+ Right Flexion (S2) 3 Fair Extension (L3) 3 Fair Comments Pt reports pain with MMT flexion PT-OP-T Assessment and Plan Start: 07/21/20 12:09 Freq: Status: Active Protocol: Document 09/17/20 10:01 DCW (Rec: 09/17/20 10:03 DCW [id number]) Physical Therapy Assessment Goals 5 Radiological Equipment Specialist Goal (LTG) Pt will perform 12 reps sit to stand without UE support in 30 sec to improve functional transfers and balance by . 09/15/20: progressing: pt is able to complete 10.25 reps in 30 sec. LTG Duration 8 weeks (09/15/20: progressing) 4 Mcc Goal (LTG) Pt will gait train at least 1400 feet in 6 minutes without AD to improve community ambulation by 09/22/20. 09/22/20: progressing: pt is able to complete 634 ft ft in 4 min before ft needed to sit and rest. Unable to complete 6MWT due to decreased strength , endurance and + SOB. Pt did fall trying to sit onto rolling stool before CUTTER MACHINE could stop him. LTG Duration 8 weeks (09/22/20: progressing) 3 Radiological Equipment Specialist Goal (LTG) Pt will perform progressive HEP with I including flexibility, strengthening, balance and gait to improve function and mobility by . 09/22/20: progressing HEP: demonstrated post op ex, sit<> stands, discussed standing ex : hip abd, ext, may. LTG Duration 8 weeks 2 Mcc Goal (LTG) Pt will present with improved active right knee ROM in hook lying to at least 5-100 deg to improve functional range for sit to stands by 09/22/20. 09/22/20: progressin- 121 * R knee. LTG Duration MET 1 Impairment LEF score 39/80 Mcc Goal (LTG) Pt will present with an improved LEF score to reflect no more than 30% impairment to reflect improved functional mobility and pain by 09/22/20. 09/15/20: progressin-39% impaired. see hand out. LTG Duration 8 weeks Assessment Summary Assessment Pt came in to the clinic, stated he saw his surgeon, and reports he no longer needs any further PT at this time. Pt will be discharged from PT, will require a new referral in order to return. Physical Therapy Plan Frequency and Duration Frequency of Treatment 2x/wk Duration of Treatment 8 weeks Plan of Care Start Date 07/22/20 Plan of Care End Date 09/22/20 Discharge Physical Therapy Discharge Reasons No Longer Attending PT Next Visit Focus/Plan Next Note Type Discharge Summary
== END 2020-09-17 11:23 | disposition home or self-care (01) ==
LOC: PHYS 08:15
PROVIDERS: PCP Student in an Organized Health Care Education/Training Program; Referring Provider Orthopaedic Surgery Adult Reconstructive Orthopaedic Surgery; Visit Provider Orthopaedic Surgery Adult Reconstructive Orthopaedic Surgery
DX: M17.11 Unilateral primary osteoarthritis, right knee (principal)
CPT/HCPCS: 97110; 97116; 97140; 97161; 97535

== ENCOUNTER → 2020-11-27 08:03 | Outpatient (CLI) | payer OTHER, SELFPAY ==
[2020-08-06 14:31] VITALS: BMI 32.5
[2020-11-27 09:50] LABS: Hematocrit 32.8 % (41-53); Mean Corpuscular HGB Conc 30.4 % (30-36); Mean Corpuscular Hemoglobin 20.8 PG (26-34); Mean Corpuscular Volume 68.3 fL (80-100); Platelet Count 380 X10^3/uL (150-400); Red Cell Distribution Width 17.6 % (11.6-14.8); White Blood Cell Count 5.4 X10^3/uL (4.5-11.0)
[2020-11-27 10:17] LABS: Alanine Aminotransferase 17 IU/L (<50); Albumin Globulin Ratio 1.3 (1.0-2.8); Alkaline Phosphatase 89 U/L (38-126); Aspartate Aminotransferase 26 IU/L (17-59); BUN Creatinine Ratio 18.6 (6-22); Bilirubin Total 0.7 mg/dL (0.2-1.3); Blood Urea Nitrogen 18 mg/dL (9-20); Calcium 8.7 mg/dL (8.4-10.2); Carbon Dioxide 28 mmol/L (22-32); Chloride 103 mmol/L (98-107); Estimated Glomerular Filt Rate > 60.0 mL/min (>60); Globulin 3.1 g/dL (1.7-4.1); Glucose 88 mg/dL (80-110); HEMOLYSIS < 15 (0-50); Potassium 4.1 mmol/L (3.4-5.1); Sodium 137 mmol/L (137-145); Total Protein 7.1 g/dL (6.3-8.2)
[2020-11-27 10:37] LABS: Thyroid Stimulating Hormone 0.668 uIU/mL (0.47-4.68)
== END ==
PROVIDERS: PCP Student in an Organized Health Care Education/Training Program; Referring Provider Student in an Organized Health Care Education/Training Program; Visit Provider Student in an Organized Health Care Education/Training Program
DX: I10 Essential (primary) hypertension (principal); E03.9 Hypothyroidism, unspecified; E78.5 Hyperlipidemia, unspecified
CPT/HCPCS: 36415; 80053; 84443; 85027

== ENCOUNTER → 2021-03-19 08:33 | Outpatient (CLI) | payer OTHER, SELFPAY ==
[2020-08-06 14:31] VITALS: BMI 32.5
[2021-03-19 09:09] LABS: Add Manual Diff / Slide Review NO; Basophils Absolute Auto 0 /uL (0-100); Basophils Percent Auto 0.9 % (0-2); Eosinophils Absolute Auto 200 /uL (0-450); Eosinophils Percent Auto 3.5 % (2-4); Hematocrit 32.8 % (41-53); Hemoglobin 10.2 g/dL (13.5-17.5); Lymphocytes Absolute Auto 900 /uL (1100-4500); Mean Corpuscular HGB Conc 31.3 % (30-36); Mean Corpuscular Hemoglobin 20.9 PG (26-34); Mean Corpuscular Volume 66.8 fL (80-100); Monocytes Absolute Auto 800 /uL (0-900); Monocytes Percent Auto 18.4 % (3-14); Neutrophils Absolute Auto 2500 /uL (1500-7000); Neutrophils Percent Auto 56.2 % (50-75); Platelet Count 302 X10^3/uL (150-400); Red Cell Distribution Width 18.5 % (11.6-14.8); White Blood Cell Count 4.4 X10^3/uL (4.5-11.0)
[2021-03-19 09:24] LABS: Hemoglobin A1C% w Est Avg Glu 5.7 % (4.0-6.0)
[2021-03-19 09:32] LABS: BUN Creatinine Ratio 19.6 (6-22); Blood Urea Nitrogen 19 mg/dL (9-20); Calcium 8.7 mg/dL (8.4-10.2); Carbon Dioxide 27 mmol/L (22-32); Chloride 105 mmol/L (98-107); Estimated Glomerular Filt Rate > 60.0 mL/min (>60); Glucose 93 mg/dL (80-110); HEMOLYSIS < 15 (0-50); Potassium 4.2 mmol/L (3.4-5.1); Sodium 138 mmol/L (137-145)
[2021-03-19 09:36] LABS: Microcytosis 2+
[2021-03-19 12:01] LABS: Appearance Urine UA CLEAR; Bilirubin Urine UA NEGATIVE (NEGATIVE); Color Urine UA YELLOW; Glucose Urine UA NEGATIVE (Negative); Ketones Urine UA TRACE (NEGATIVE); Leukocyte Esterase Urine UA NEGATIVE (NEGATIVE); Nitrite Urine UA NEGATIVE (Negative); Occult Blood Urine UA NEGATIVE (Negative); Protein Urine UA TRACE (Negative); Specific Gravity Urine UA 1.025 (1.000-1.035); Urobilinogen Urine UA 0.2 E.U./dL (0.2)
[2021-03-19 12:21] LABS: Bacteria Urine None Seen; Culture Indicated Urine Cult Not Indicated; RBC Urine None Seen (0-5/HPF); WBC Urine None Seen (0-5/HPF)
== END ==
PROVIDERS: PCP Student in an Organized Health Care Education/Training Program; Referring Provider Orthopaedic Surgery; Visit Provider Orthopaedic Surgery
DX: Z01.818 Encounter for other preprocedural examination (principal); R73.9 Hyperglycemia, unspecified; Z01.812 Encounter for preprocedural laboratory examination; N39.0 Urinary tract infection, site not specified
CPT/HCPCS: 36415; 80048; 81001; 83036; 85025; 93005; 93010

== ENCOUNTER → 2021-08-19 09:48 | Outpatient (CLI) | payer OTHER, SELFPAY ==
[2020-08-06 14:31] VITALS: BMI 32.5
[2021-08-19 11:21] LABS: COVID19 -Nasal RAPID Negative (Negative)
== END ==
PROVIDERS: Family Provider Student in an Organized Health Care Education/Training Program; PCP Student in an Organized Health Care Education/Training Program; Referring Provider Orthopaedic Surgery; Visit Provider Orthopaedic Surgery
DX: Z20.822 Contact with and (suspected) exposure to COVID-19 (principal)
CPT/HCPCS: 87635; C9803

== ENCOUNTER 2021-08-21 10:51 | Day surgery (SDC) | payer OTHER, SELFPAY ==
[2020-08-06 14:31] VITALS: BMI 32.5
[2021-08-20 08:16] VITALS: BMI 33.6
[2021-08-21] VITALS (11 sets, daily range): BP systolic 93–158; BP diastolic 58–103; PULSE 60–84; RESP 14–21; TEMP 35.5–36.9; O2SAT 91–98; BMI 33.6
--- NOTE | 2021-08-21 06:00 | DI.RAD.S_ITS ---
PROCEDURE: XR KNEE LT 1TO2V INDICATIONS: prosthesis placement TECHNIQUE: 2 view(s) of the knee acquired. COMPARISON: [facility], CR, XR KNEE LT 1TO2V, 06/02/2020, 9:40. FINDINGS: Bones: Patient is status post knee joint arthroplasty. Hardware components are in expected positions. Visualized bony structures are intact. Soft tissues: Overlying postoperative changes are noted. IMPRESSION: Expected postsurgical change for left knee arthroplasty. Dictated by: Stacie Laurent MD, PhD on 08/21/2021 at 20:16 Approved by: Stacie Laurent MD, PhD on 08/21/2021 at 20:17
[2021-08-21] MEDS: ACETAMINOPHEN 325 MG TABLET 975 MG PO (11:59)
[2021-08-21] MEDS: CELECOXIB 200 MG CAPSULE PO (12:00)
[2021-08-21] MEDS: PREGABALIN 75 MG CAPSULE PO (12:00)
[2021-08-21] MEDS: LACTATED RINGERS 1,000 ML 84 ML IV ×2 (12:04→15:10)
[2021-08-21] MEDS: VANCOMYCIN 1,000 MG/200 ML PIGGYBACK 200 MG IV (13:30)
--- NOTE | 2021-08-21 13:45 | P.OP_ITS ---
Operative Date/Time/Diagnoses Date of procedure: 08/21/21 Time of procedure: 14:55 Pre-op diagnosis: left knee OA Post-op diagnosis: same Procedure & Clinicians Procedure: left total knee arthroplasty Same procedure as scheduled: Yes Indications: The patient has had progressively worsening left knee pain with radiographic changes consistent with arthritis. Non-operative management has failed and the patient has requested total knee replacement. The risks, benefits and alternatives to surgery were discussed with the patient prior to proceeding. Risks discussed included, but were not limited to, failure to relieve pain, stiffness, infection, nerve damage, deep venous thrombosis, pulmonary embolism, stroke, coma, heart attack, permanent paralysis and , as well as the potential need for eventual revision of the prosthetic. Surgeon: Alejandra Corbett Mental Health Social Worker: Elo Mullins Anesthesia Type: General and Spinal Operative Notes Findings: Severe left knee osteoarthritis, adequate stability Closure Type: primary Specimen(s): none sent Prosthetic devices, grafts, tissues, transplants, or devices: [facility] BCS 2 size 4 femur, size 4 tibia, +10 poly, 32 oval patella Estimated Blood Loss (mL): 250 Blood products transfused: none Tourniquet time (min): 85 Procedure in detail: The patient was seen in the pre-operative area, where the patient identified the left knee as the operative site and this was marked with my initials. The patient received pre-operative antibiotics, and was taken to the operating room and placed on the operative table in the supine position. After satisfactory anesthesia, a multimedia production assistant out was performed. The left leg was encircled with a tourniquet about the proximal thigh, and the leg was prepared from the toes to the tourniquet with ChloroPrep in the usual fashion and draped through sterile drapes. The leg was elevated and exsanguinated with Eschmark bandage and the tourniquet inflated to [250] mmHg pressure. The knee was approached through an approximately 18 cm incision centered over the patella and carried into the knee through a medial parapatellar arthrotomy. A portion of the medial and lateral meniscus was resected. Soft tissue was carefully mobilized around the patella the patella was measured with a caliper. Bone was resected from the patella and the patellar height was reconstituted with up an appropriate sized patellar component. A cover was then placed on the patella. A small amount of additional medial and lateral meniscus was resected. The distal femur was cut at 5?. A [+2] cut was used. It looked like an appropriate distal femoral cut and the cut was made without difficulty. An extramedullary guide was used for the tibial cut. 10 mm was resected off the least affected side.The tibia was prepared. The rotation was assessed. The patient was placed in extension residual medial and lateral meniscus as well as any residual bone was carefully resected. [No] additional tibia was resected. Hemostasis was achieved especially posteriorly. Additional local was injected into the posterior capsule. The extension gap was assessed and additional releases for gap balancing were performed as necessary. It was checked with the gap corner cutter machine operator. The femoral component was trial was placed and the notch was finished. The rotation was assessed and the appropriate size femoral guide was placed on the distal femur and finishing cuts were made. There was no evidence of notching. The anterior, posterior and chamfer cuts were then made. The posterior osteophytes and soft tissues were then removed. The posterior capsule was injected with part of a mixture of 60 ml 0.25% Marcaine mixed with 20 ml Exparel for post operative pain control. The remainder of this mixture was injected into the capsule and subcutaneous tissues during cement curing. The tibial and femoral components were then placed and the knee placed through a range of motion. Range of motion was [0-130], with good stability throughout the range. The trials were then removed, and the tibia was finished. The bone was prepared with pulsatile lavage, and dried with a sponge. Cement was applied and the final prosthetics placed. Excess cement was removed during and after cement curing. A brief Betadine soak was performed. After confirming there was no extruded cement posteriorly, the final tibial insert was placed. The knee was copiously irrigated and the tourniquet deflated. Hemostasis was obtained with the Bovie cautery. A drain was placed and brought out superolaterally. The capsule was closed with interrupted nonabsorbable suture. The subcutaneous layer was closed with barbed sutures, and the skin with a running 3-0 V-Lock suture and Surgical glue. An Aquacel Ag dressing was applied and the patient was taken to recovery having tolerated the procedure well. Complications: none Post-operative Condition: stable Disposition: Acute Care Plan for aftercare: The patient will be maintained on a standard total knee replacement protocol with weight bearing as tolerated. The patient will receive aspirin and sequential compression devices for DVT prophylaxis. The patient will be discharged home when safe for the home environment.
--- NOTE | 2021-08-21 13:45 | PM.PREOP ---
Pre-operative Note COVID-19 COVID-19 status: Negative Interval Note History & Physical reviewed/Exam performed by Physician: Yes Changes to H&P: No
[2021-08-21] MEDS: CEFAZOLIN 2 GM/20 ML SYRINGE IV ×2 (15:20→22:00)
[2021-08-21] MEDS: TRANEXAMIC ACID 1,000 MG VIAL 1000 MG INJ ×2 (15:22→17:19)
--- NOTE | 2021-08-21 16:43 | SUR.OPER ---
Supine on padded OR bed. Pillow under head, arms secured on padded armboards <90 degree abduction. Safety belt across torso. Non-operative leg secured with tape over blanket over lower leg. Operative leg secured in DeMayo/Rosendo/Nathe positioner. Foam padded brace at thigh of operative leg. Positioning directed and approved by Surgeon. Patel inserted with ease. No resistance felt during insertion. Clear yellow urine was visualized in tubing prior to balloon inflation. Secured to thigh prior to leaving OR
[2021-08-21] MEDS: BUPIVACAINE LIPOSOME 266 MG/20 ML VIAL INJ (16:54)
[2021-08-21] MEDS: BUPIVACAINE 0.25% (PF) 60 ML, EPINEPHrine 0.3 MG INJ (16:55)
[2021-08-21] MEDS: LACTATED RINGERS 1,000 ML 100 ML IV (18:47)
--- NOTE | 2021-08-21 19:47 | PC.NURSE ---
Pt arrived to the unit around 183 from OR. Pt is AxOx4, very pleasant and cooperative. VSS, pt denies pain. Pt is on RA now and sats 94%. CMS intact except distal BLE sensation still coming but not complete yet. Pt states it is waking up slowly. R knee has riaz wrap and no drainage. Pt stated pt is not hungry. Pt is drinking ice water. No other changes. Continue monitor.
[2021-08-21] MEDS: IBUPROFEN 400 MG TABLET PO (20:55)
[2021-08-21] MEDS: ASPIRIN EC 81 MG TABLET PO (20:55)
[2021-08-21] MEDS: DOCUSATE 100 MG CAPSULE PO (20:55)
[2021-08-21] MEDS: ATORVASTATIN 20 MG TABLET 10 MG PO (20:55)
[2021-08-22] VITALS: BP 143/71; PULSE 72; RESP 18; TEMP 36.6; O2SAT 98
[2021-08-22 04:47] VITALS: BP 150/74; PULSE 79; RESP 19; TEMP 36.8; O2SAT 93
[2021-08-22] MEDS: IBUPROFEN 400 MG TABLET PO ×2 (05:51→09:06)
[2021-08-22 05:58] LABS: Hematocrit 44.9 % (41-53); Hemoglobin 15.3 g/dL (13.5-17.5)
[2021-08-22] MEDS: PANTOPRAZOLE DR 20 MG TABLET PO (06:10)
[2021-08-22] MEDS: ACETAMINOPHEN 325 MG TABLET 650 MG PO ×2 (06:10→12:23)
[2021-08-22] MEDS: LEVOTHYROXINE 150 MCG TABLET PO (06:11)
[2021-08-22] MEDS: CEFAZOLIN 2 GM/20 ML SYRINGE IV (06:11)
[2021-08-22] MEDS: LACTATED RINGERS 1,000 ML 100 ML IV (06:11)
--- NOTE | 2021-08-22 08:47 | PT.IIE ---
Current Diagnoses Bilateral primary osteoarthritis of knee (08/21/21) Surgery Performed Operation Date: 08/21/21 13:00 Actual Procedures p Total Knee Arthroplasty(Left) - Alejandra Corbett MD Surgical History (Last Updated 08/20/21 @ 08:26 by Candelaria Espinal RN) History of arthroplasty of right knee (08/06/20) History of arthroscopy of right knee History of colonoscopy History of esophagogastroduodenoscopy (EGD) Medical History (Last Updated 08/20/21 @ 08:26 by Candelaria Espinal RN) Anemia Chronic constipation COUCH (dyspnea on exertion) GERD (gastroesophageal reflux disease) Hoarseness HTN (hypertension) Osteoarthritis PSVT (paroxysmal supraventricular tachycardia) RBBB (right bundle branch block) Physical Therapy Inpatient Evaluation/Re-Eval M1 PT/OT-IP Prior Functional Status Start: 08/22/21 08:04 Freq: NEEDED Status: Active Protocol: Document 08/22/21 08:47 AW (Rec: 08/22/21 09:42 AW [id number]) Medical Review Prior Functional Status Medical History Reviewed Yes Communication WNL. Pt has poor dentition affecting speech production but is an effective verbal communicator. Mobility and Gait Pt uses one or two walking sticks for longer walks and uneven surfaces. He had a R TKA one year ago. Activities of Daily Living and IADL's Independent, including driving . Social History Household Members spouse,family Living Arrangements Apartment/Condo Number of Floors (Floors) One Floor Number of Stairs To Enter/Railing? Ground floor apartment with no stairs. Home Environment Standard Height Toilet,Tub/ Shower Home Equipment Front Wheel Walker,Raised Toilet Seat Without Armrests, Shower Seat with Backrest Additional Social History Comment Pt lives in [place] with his , Maria Dolores, and son, Kaveh. 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 M2 PT-IP Current Condition Start: 08/22/21 08:04 Freq: NEEDED Status: Active Protocol: Document 08/22/21 08:47 AW (Rec: 08/22/21 09:42 AW [id number]) Physical Therapy Current Condition Current Condition Evaluation Date 08/22/21 Treatment Diagnosis L TKA; difficulty in walking Onset Date 08/21/21 M3 PT-IP Subjective Start: 06/18/22 08:04 Freq: NEEDED Status: Active Protocol: Document 08/22/21 08:47 AW (Rec: 08/22/21 09:42 AW [id number]) Subjective Physical Therapy Visit Type Type Initial Evaluation Visit Start Time 08:17 Visit Stop Time 08:47 Total Visit Minutes 30 Number of CASTING AGENT Visits 0 Physical Therapy Visit Comments Patient Comments Pt is very willing to work with PT Patient Goals Return home today. 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 Therapy Pain Assessment Pain When Pain Assessed During Mobility Pain Present Pain Present Pain Reported Location r knee Intensity 2 Scale Used 1/10 at rest; 2/10 with mobility Pain Management Techniques Apply Cold,Distraction,Re- positioning M4 PT-IP Mobility and Gait Start: 08/22/21 08:04 Freq: NEEDED Status: Active Protocol: Document 08/22/21 08:47 AW (Rec: 08/22/21 09:42 AW [id number]) PT-Bed Mobility Assessment Supine to Sit Supine to Sit Standby Assistance Scooting Scooting to Edge of Bed Standby Assistance PT-Transfer Assessment Sit to and From Stand Sit to and from Stand Standby Assistance Equipment Transfer Assistive Device Gait Belt,Front Wheeled Walker Orthotic/Prosthetic Devices or Brace: No Transfers Transfer Destination Chair Transfer Technique pt ambulated with fww Transfer Ability Level of Assist Standby Assistance Comments Mobility Comments Pt was lying in bed as PT arrived. BP 123/80 HR 106. Using momentum, he sat up EOB SBA. He denied lightheadedness . BP 133/81 HR 106. He stood SBA and used FWW to ambulate 150 feet SBA. On return to the room, he transferred to the chair but needed cues to keep the walker in front of him until ready to sit and cues to use arms to slow descent. Pt stood from the chair two more times with improved form and then remained in the chair with call light and breakfast set up in front of him. Gait Assessment Gait Gait Assistance Required: Standby Assistance Distance (Feet) 150 Able to Maintain Weight Bearing Status Yes During Gait Assistive Devices Assistive Device Gait Belt,Front Wheeled Walker Orthotic/Prosthetic Devices or Brace: No Gait Deviations General Gait Pattern Antalgic Factors Limiting Gait Function Factors Limiting Gait Function Decreased Strength,Pain Comments Gait Comments Pt tended to push the walker too far forward but was responsive to cues to keep walker closer. Stair Climbing Assessment Comments Stair Climbing Comments Not assessed. No stairs at home. PT-Balance Assessment Sitting Balance and Reactions Static Sitting Balance Ability Normal Dynamic Sitting Balance Ability Good Standing Balance and Reactions Static Standing Balance Ability Good Dynamic Standing Balance Ability Good Device Used FWW M5 PT-IP Objective Assessments Start: 08/22/21 08:04 Freq: NEEDED Status: Active Protocol: Document 08/22/21 08:47 AW (Rec: 08/22/21 09:42 AW [id number]) Orientation Orientation/Cognition Level of Alertness Alert Orientation Name,Day of Week,Place, Situation Safety Awareness Decreased Safety Awareness Gross Range of Motion Lower Extremity ROM Assessment Left Impaired Strength Lower Extremity Strength Assessment Left Impaired Hip 4-/5 Knee 3+/5 Sensation Assessment Sensation Gross Sensation WNL Muscle Tone Muscle Tone WNL Yes M6 PT-IP Treatment Start: 08/22/21 08:04 Freq: NEEDED Status: Active Protocol: Document 08/22/21 08:47 AW (Rec: 08/22/21 09:42 AW [id number]) Physical Therapy Treatment Exercises Exercises Ankle Pumps,Quad Sets,Heel Slides,Passive Knee Extension Hang,Seated Knee Flexion/ Extension Education Education Provided Precautions,Weight Bearing Status,Post-Op Packet,Safety M7 PT-IP Assessment and Plan Start: 08/22/21 08:04 Freq: NEEDED Status: Active Protocol: Document 08/22/21 08:47 AW (Rec: 08/22/21 09:42 AW [id number]) PT Summary Assessment and Plan Potential Rehabilitation Potential Good Status of Condition at Evaluation Evolving Summary Impairments Pain,ROM,Strength,Balance,Bed Mobility,Transfers,Gait Assessment Summary Miguel Ángel is a 75 yo man seen for PT evaluation on POD1 following L TKA. He had R TKA one year ago. He is modified independent at baseline with use of one or two walking sticks depending on distance and terrain. On evaluation, pt required no more than SBA for all mobilities with FWW. Pt has his and son at home to provide assist. He has good understanding of his post-op exercises. He is safe to discharge home with assist and already has outpatient PT scheduled. Frequency of Treatment Frequency Of Treatment Discharge Weight Bearing Status Weight Bearing Status Weight Bear as Tolerated Recommendations To Nursing Amount of Assist Needed Standby Assistance,1 Person Assist Discharge Recommendations PT Discharge Recommendations Home with Assistance, Outpatient PT Transportation Needs at Discharge Private Vehicle
[2021-08-22 08:51] VITALS: BP 132/78; PULSE 98; RESP 16; TEMP 37.1; O2SAT 94
[2021-08-22] MEDS: DOCUSATE 100 MG CAPSULE PO (09:05)
[2021-08-22] MEDS: ASPIRIN EC 81 MG TABLET PO (09:05)
[2021-08-22 09:06] VITALS: BP 132/68
[2021-08-22] MEDS: lisinopriL 10 MG TABLET PO (09:06)
--- NOTE | 2021-08-22 09:17 | P.DS_ITS ---
History of Present Illness History of Present Illness Date Patient Seen: 08/22/21 Time Patient Seen: 09:18 Chief complaint: left knee pain s/p L TKA Narrative: The patient is complaining of very mlid left knee pain this morning. He denies new numbness and tingling. He is feeling good and would like to be discharged home today. Discharge Providers Provider Discharge Date: 08/22/21 Primary care physician: Raquel Blanton PA-C Consults: 08/21/21 06:00 Consult to Anesthesiology Routine Comment: Consulting Provider: Anesthesiologist Reason for consultation: Regional block for post operative pain control 08/21/21 18:15 Consult to Discharge Planning Routine Comment: Consult to Physical Therapy Evaluate & Treat Comment: Physician Instructions: postop TKA protocol Consult to Respiratory Therapy Evaluate & Treat Comment: Physician Instructions: Evaluate and treat Discharge provider: Elo Mullins PA-C Summary Hospital Course Discharge Diagnosis: -left knee osteoarthritis -history of urinary retention Hospital Course: Operative Date/Time/Diagnoses Date of procedure: 08/21/21 Time of procedure: 14:55 Procedure & Clinicians Procedure: left total knee arthroplasty Same procedure as scheduled: Yes Indications: The patient has had progressively worsening left knee pain with radiographic changes consistent with arthritis. Non-operative management has failed and the patient has requested total knee replacement. The risks, benefits and alternatives to surgery were discussed with the patient prior to proceeding. Risks discussed included, but were not limited to, failure to relieve pain, stiffness, infection, nerve damage, deep venous thrombosis, pulmonary embolism, stroke, coma, heart attack, permanent paralysis and , as well as the potential need for eventual revision of the prosthetic. Surgeon: Alejandra Corbett Vp Analytics: Elo Mullins Anesthesia Type: General and Spinal Operative Notes Findings: Severe left knee osteoarthritis, adequate stability Closure Type: primary Specimen(s): none sent Prosthetic devices, grafts, tissues, transplants, or devices: [employer] [facility] BCS 2 size 4 femur, size 4 tibia, +10 poly, 32 oval patella Estimated Blood Loss (mL): 250 Blood products transfused: none Tourniquet time (min): 85 Status at Discharge Cognitive/behavioral status at discharge: at baseline, oriented Functional status at discharge: uses cane/walker Overall status at discharge: patient is progressing back to baseline Exam Vital Signs (past 8 hours): - 08/22/21 04:47 08/22/21 08:51 08/22/21 09:06 Temperature 98.2 F 98.8 F Pulse Rate 79 98 H Respiratory Rate 19 16 Blood Pressure 150/74 H 132/78 132/68 Pulse Oximetry 93 94 Oxygen Flow Rate 0 Oxygen Delivery Method Room Air Oxygen Flow Rate 0 Narrative Exam Narrative: Pleasant 75-year-old male, with very poor dentition, resting comfortably in his chair, no acute distress. Dressing is clean, dry, intact. Bilateral lower extremity: Motor functions are grossly intact, sensation is grossly intact to light touch, calves are soft and nontender to palpation. Objective Labs Result Diagrams: 08/22/21 05:15 Labs: Laboratory Results - last 24 hr 08/22/21 05:15 Hgb 15.3 Hct 44.9 PFSH Medical History Anemia Chronic constipation COUCH (dyspnea on exertion) GERD (gastroesophageal reflux disease) Hoarseness HTN (hypertension) Osteoarthritis PSVT (paroxysmal supraventricular tachycardia) RBBB (right bundle branch block) Surgical History History of arthroplasty of right knee (08/06/20) History of arthroscopy of right knee History of colonoscopy History of esophagogastroduodenoscopy (EGD) Social History household members: spouse and family Smoking Status: Never smoker alcohol intake: former Discharge Assessment & Plan Assessment and Plan Assessment: Stable status post left total knee arthroplasty -history of urinary retention postoperatively Plan of Treatment: -mobilize with PT. Weightbearing as tolerated with front wheel walker -continue with multimodal pain management. The patient has oxycodone 5 mg at home as well as Tylenol and ibuprofen. -Aspirin 81 mg b.i.d. x6 weeks for DVT prophylaxis -remove urinary catheter today, will add 1 week of flow max for his history of urinary retention -DC home once cleared by PT -the patient has all his prescriptions and [id number] medications ready at home except Flomax, Discharge Plan Discharge Plan Patient Disposition: Home Discharge orders & Medications Discharge Orders: Discharge (Order); Ordered 08/22/21 Ordered By: Elo Mullins Prescriptions: New aspirin 81 mg Tablet,Delayed Release (Dr/Ec) 81 mg PO BID 42 Days Qty: 84 0RF Rx Instructions: Prevent blood clots oxycodone 5 mg Tablet 5 mg PO Q4HR PRN (Reason: Moderate to severe postop pain) Qty: 40 0RF polyethylene glycol 3350 17 gram Powder In Packet 17 g PO DAILY PRN (Reason: Constipation) Qty: 30 0RF tamsulosin [Flomax] 0.4 mg Capsule 0.4 mg PO .At dinnertime Qty: 7 0RF Rx Instructions: To help with postop urinary retention Continued lisinopril 10 MG tablet 10 mg PO Q DAY Qty: 90 0RF levothyroxine 150 MCG tablet 0.15 mg PO QAM Qty: 90 0RF omeprazole 20 mg Capsule,Delayed Release(Dr/Ec) 20 mg PO DAILY lovastatin 20 MG tablet 20 mg PO QAM acetaminophen 325 mg Tablet 650 mg PO TID Qty: 60 0RF docusate sodium [DOK] 100 mg Capsule 100 mg PO BID Qty: 20 0RF ibuprofen 400 mg Tablet 400 mg PO Q4HR Qty: 60 0RF Follow up/Referrals: Raquel Blanton PA-C [Primary Care Provider] - (Please also follow-up with your dentist after 11/22/21) Alejandra Corbett MD [Physician] - (10-14 days for postoperative visit) Diet/Activity/Treatments Diet: Diet as Tolerated Other treatments: Medications: -Aspirin 81mg twice daily x6 weeks to prevent blood clots. -OTC Tylenol 500 mg 1 tablet every 4 hours as needed for pain/fever. Max 6 tablets per day. -Ibuprofen 400 mg 1 tablet every 4 hours as needed for pain/inflammation. Max 2 ,400 mg per day. -Oxycodone 5 mg take 1-2 tablets every 4 hours as needed for moderate-severe pain (narcotic pain medication). -As needed medications: -Ducolax and /or MiraLax as needed for constipation from narcotic pain medications. -Pepcid AC as needed for stomach upset (usually from aspirin or ibuprofen). Dressing/Wound care: -Remove the Panfilo wrap 48 hours after surgery. -Keep Aquacell dressing in place until postoperative follow-up office visit. -Okay to shower. Keep wound out of direct water stream. No soaking or submerging until all the scabs fall off (approximately 4-6 weeks). -No lotions, ointments, or scar creams directly to the incision until the wound is healed (4-6 weeks), -Please call the office if dressing becomes wet, soiled, or saturated. Activities: -Weight-bearing as tolerated. Use front wheeled walker, and progress to cane w hen safe. -Continue with home exercises as directed by your physical therapist. -Elevate ?toes above the nose if you have significant swelling in your lower leg. (A wedge pillow is easiest.) -Ice your incision as needed for pain/inflammation/swelling. Protect your skin with a folded pillowcase. -Incentive Spirometer (breathing device from [facility]): 5-10xs every hour while awake for the first 1-2 weeks. Follow-up: -Follow-up with your surgeon or PA in the office in 10-14 days after surgery. -Follow-up with your surgeon 6 weeks postoperatively. Call the office if you have chest pain, shortness of breath, significant swelling that will not resolve with elevating, fever over 101?, significantly worsening pain, or are concerned you might need to go to the Emergency Room. [facility]: [phone] Skin/Wound/Dressing Care Report to your healthcare provider any signs of infection, such as:: chills, fever, night sweats, unusual drainage and unusual redness Visit Report/Discharge Packet Instructions: DI for Knee Replacement Stand Alone Forms: Surgery Discharge Discharge Data Primary Care Provider: Raquel Blanton Attending Provider: Alejandra Corbett
--- NOTE | 2021-08-22 12:43 | PC.NURSE ---
Addendum entered by Martha Jung R.N. 08/22/21 13:15: Pt transportation here Escorted by staff via W/C to waiting vehicle. D.C in stable post op course. Original Note: Pt denies any discomfort, ' Stable post op course. Dsg to left knee CDI Patel D/C'd this a.m. & pt has voided. Orders for D/C received D/C intact. Home instructions given w/understanding,
--- NOTE | 2021-08-22 14:14 | CM.DANOTE ---
Initial Discharge Planning note: Case received and EMR reviewed. Patient is not available for interview at this time. 75 year old alert and oriented male underwent Left TKA yesterday. PCP: Raquel Blanton, surgeon Alejandra Corbett Payer: [employer]. Patient admitted as SDC yesterday and underwent procdure. Uneventful postop course and was discharged home via private vehicle. He will follow up with surgeon as per discharge instructions. SEJ Discharge Planning/Care Management CM Discharge Assessment Start: 08/22/21 14:06 Freq: Status: Active Protocol: Document 08/22/21 14:11 SJ (Rec: 08/22/21 14:12 [id number]) Discharge Planning Assessment Advance Directives? No History Provided By Patient Prior Living Arrangements Apartment/Condo Household Members spouse,family Independent with ADL's Yes Is patient alert and oriented? Yes Caregiver for Another No Barriers to Discharge No Discharge Plan Home Additional Comment Per surgeon for PT Review Status In Process Pre-Anesthesia Assessment Start: 08/20/21 08:16 Freq: Status: Complete Protocol: Document 08/20/21 08:16 CAB (Rec: 08/20/21 08:26 CAB [id number]) Pre-Anesthesia Assessment PAC Comment Pt is s/p RT TKA 08/06/20, declines need for PAC phone assessment. Pt reports no changes to medical/medication history, no questions with upcoming surgery. Chart review only. Patient Information Reviewed Via Chart Review Diagnostic Results BMP/CMP,CBC,EKG Comment Labs @ [facility] 03/19/21, COVID screen @ [facility] 08/19/21 Negative Primary Care Provider Raquel Blanton Medical Clearance Received Yes Seen Specialist in Last 12 Months Yes Specialist Seen Requirements Analyst,Orthopedist Comment PCP clearance scanned to record Primary Language Japanese Preferred Language Japanese Guitar Maker Hand Required No Height 158.75 cm Weight 84.822 kg Body Mass Index (BMI) 33.6 Hearing Ability Normal Visual Assist Glasses Dentition Type Teeth, Natural Present,Teeth, Missing Hx Anesthesia Reactions No Hx Family Anesthesia Reaction No Hx Malignant Hyperthermia No Hx Blood Transfusions No Anesthesia Review Requested No alcohol intake former Smoking Status Never smoker Substance Use Type does not use Pain Present Pain Reported Musculoskeletal Symptoms Abnormal Gait,Difficulty Walking,Joint Pain History of Falling (Recent or History of No ) Patient is completely paralyzed or No completely immobile Mental Status Oriented to own ability Is patient on oxygen? No Does patient have COUCH/SOB Yes: Chronic COUCH CPAP/BIPAP use not prescribed Currently Taking a Beta Isabel No Can You Climb a Flight of Stairs Without No SOB Hx Chest Pain No Hx SOB Yes: COUCH, chronic Hx Syncope or Dizziness Yes: Dizziness, near syncope Has a Requirements Analyst Yes: Dr. Richardson Cardiac Testing No Hx Pacemaker/ICD No Pacemaker Rep Required? No Comment Cardiac records scanned Diet Type At Home Regular dysphagia No Gastrointestinal Symptoms Constipation,Reflux Urinary Catheter Present No Hx Urinary Self Catheterization No Diabetes No Hx Drug Resistant Organism No Presence of External or Internal Medical No Devices Marital Status Lives With spouse Prior Living Arrangements Apartment/Condo Patient Discharge Plan Description Return Home Feels Safe in Current Environment Yes Been Physically Hurt or Threatened By a No Person in Current Environment Do you have thoughts of harming yourself None or others? Are you currently considering suicide? No Do you have a plan to hurt yourself or No Plan others? Do You Have Any Spiritual Beliefs That No May Affect Your HC Choices? Do You Have Any Cultural Practices That No May Affect Your HC Choices? Who Can We Speak to About Patient's Care Family, friends Identifying Code for Release of Patient Declines to issue Information Health Care Proxy/Next of Kin Maria Dolores () Health Care Proxy Emergency Contact Name Maria Dolores () Emergency Contact Advance Directives? No Power of Hat Conditioner Yes: Currently working on
== END 2021-08-22 13:16 | disposition home or self-care (01) ==
LOC: OR 10:52 → AC 10:53
PROVIDERS: Family Provider Student in an Organized Health Care Education/Training Program; PCP Student in an Organized Health Care Education/Training Program; Referring Provider Orthopaedic Surgery; Visit Provider Orthopaedic Surgery
PROC: 0SRD0JZ Replacement of Left Knee Joint with Synthetic Substitute, Open Approach (ICD-10-PCS; CPT 27447; principal; 2021-08-21 13:00)
DX: M17.12 Unilateral primary osteoarthritis, left knee (principal); E66.9 Obesity, unspecified; E03.9 Hypothyroidism, unspecified; E78.5 Hyperlipidemia, unspecified; I10 Essential (primary) hypertension; K21.9 Gastro-esophageal reflux disease without esophagitis; I45.10 Unspecified right bundle-branch block
CPT/HCPCS: 27447; 36415; 73560; 85014; 85018; 97110; 97161; C1776; C1713; C9290; J0171; J0690; J1100; J2250; J2405; J2704; J3010

== ENCOUNTER 2021-10-15 09:45 | Outpatient (RCR) | payer OTHER, SELFPAY ==
[2020-08-06 14:31] VITALS: BMI 32.5
[2021-08-21 11:10] VITALS: BMI 33.6
--- NOTE | 2021-08-27 17:38 | PT.OIE ---
Current Diagnoses Unilateral primary osteoarthritis, left knee (08/27/21) Effusion, left knee (08/27/21) Other abnormalities of gait and mobility (08/27/21) Presence of left artificial knee joint (08/27/21) Past Medical History (Last Reviewed 08/22/21 @ 11:50 by Elo Mullins PA-C) Anemia Chronic constipation COUCH (dyspnea on exertion) GERD (gastroesophageal reflux disease) Hoarseness HTN (hypertension) Osteoarthritis PSVT (paroxysmal supraventricular tachycardia) RBBB (right bundle branch block) Past Surgical History (Last Reviewed 08/22/21 @ 11:50 by Elo Mullins PA-C) History of arthroplasty of right knee (08/06/20) History of arthroscopy of right knee History of colonoscopy History of esophagogastroduodenoscopy (EGD) Visit Care Team Role Provider Type Raquel Blanton PA-C Family Provider Non-Staff Primary Care Provider Specialty: Internal Medicine Address: [address] [place] [address], [id number] Email: [email or web address] Alejandra Corbett MD Attending Provider Physician Referring Provider Specialty: Orthopedics Orthopedic Surgery Address: [address] [place] [address], [address] Email: [email or web address] Physical Therapy Initial Evaluation PT-OP-A Visit Information Start: 08/27/21 10:20 Freq: Status: Active Protocol: Document 08/27/21 09:45 DCW (Rec: 08/27/21 10:26 [facility] [id number]) Out-Patient Physical Therapy Visit Information Visit Information Visit Type Initial Evaluation Visit Start Time 09:45 Visit Stop Time 10:15 Total Visit Minutes 30 Visit Number 1 Number of TYPE CUTTER Visits 0 Evaluation Information Evaluation Date 08/27/21 PT-OP-B Current Condition Start: 08/27/21 10:20 Freq: Status: Active Protocol: Document 08/27/21 09:45 DCW (Rec: 08/27/21 10:26 [facility] [id number]) Current Condition History of Current Condition Onset Date 08/21/21 Current Complaints Left TKA History of Current Condition Pt is a 75 year old male presenting to skilled therapy six days s/p left TKA. Pt is additionally one year s/p R TKA. Pt feels his recovery is going well, he had been working hard pre-op with LE strengthening exercises. Does note he is still having moderate left knee pain, which has limited his sleep. Pt ambulates with a FWW at this time, does have a SPC available. Also notes that following discharge from outpatient PT for his right TKA, he obtained trekking poles and has been using those a lot prior to this most recent TKA. Pt notes increased LE edema and bruising in his left LE. Prior Treatments and Tests R TKA August 2020 PT-OP-C Subjective Start: 08/27/21 10:20 Freq: Status: Active Protocol: Document 08/27/21 09:45 DCW (Rec: 08/27/21 11:59 DCW [id number]) OP-PT Subjective Patient Comments Patient Comments I'm walking better now than I was this morning. It seems to take a while to get moving in the mornings. Patient Reported Progress Improving OP-PT Pain Assessment Pain Assessment Grid Paper Pain Assessment Grid Completed No PT-OP-E Functional Tests Start: 08/27/21 10:20 Freq: Status: Active Protocol: Document 08/27/21 09:45 DCW (Rec: 08/27/21 10:29 DCW [id number]) Functional Tests 6 Minute Walk Test Distance 759' Device Used FWW Comments 2.11 ft/sec Timed Up and Go (TUG) Score 13.38 /c FWW Comments 3-trial average (13.94, 13.08 , 13.12) TUG Impairment Rating 20 to <40% Impaired (Score 12- 13) PT-OP-K Range of Motion Start: 08/27/21 10:20 Freq: Status: Active Protocol: Document 08/27/21 09:45 DCW (Rec: 08/27/21 10:29 DCW [id number]) Knee Goniometric Range of Motion Knee Right Patient Position Sitting Flexion Active (degrees) 118 Extension Active (degrees) 2 Left Knee ROM WFL No Patient Position Sitting Flexion Active (degrees) 85 Extension Active (degrees) 24 PT-OP-M Strength Start: 08/27/21 10:20 Freq: Status: Active Protocol: Document 08/27/21 09:45 DCW (Rec: 08/27/21 12:02 DCW [id number]) Knee Strength Knee Manual Muscle Testing Right Flexion (S2) 5 Normal Extension (L3) 5 Normal Left Flexion (S2) 4+ Good+ Extension (L3) 3- Fair- PT-OP-T Assessment and Plan Start: 08/27/21 10:20 Freq: Status: Active Protocol: Document 08/27/21 09:45 DC (Rec: 08/27/21 17:38 DC [id number]) Physical Therapy Assessment Evaluation Complexity Number of Personal Factors/Comorbidities 3 or More Number of Body Systems Impaired 1-2 Clinical Presentation at Evaluation Stable Impairments Impairments Activity Tolerance,Balance, Edema,Functional Activities, Functional Mobility,Gait,Pain, ROM,Soft Tissue Mobility, Strength,Tone Goals Three Impairment Pt scores a 13.38 on TUG Fci Goal (LTG) Pt to decrease TUG score to at least 10 without an assistive device in order to show decreased falls risk and improved functional gait LTG Duration 11/25/21 Two Impairment Left knee ROM restricted to 24 -85? Merchandise Clerk Goal (LTG) Left knee ROM to improve to 0- 120? to increase functional mobility LTG Duration 11/25/21 One Impairment Pt does not have an appropriate home exercise program Short Term Goal (STG) Pt to be independent and compliant with an appropriate HEP STG Duration 09/26/21 Assessment Summary Assessment Pt presents as expected nearly one week s/p left TKA. Pt demonstrates decreased ROM, edema, bruising, weakness, and gait difficulty. Pt doing well with his post-surgical HEP, will work to advance as needed while he heals. Pt has previously undergone right TKA , and demonstrates good understanding with recovery process. At baseline, pt does report some SOB, thyroid dysfunction, and anemia. Pt should benefit from post-op skilled therapy to improve gait, ROM, and strength. Physical Therapy Plan Frequency and Duration Frequency of Treatment 2x/Week Duration of Treatment 90 days Plan of Care Start Date 08/27/21 Plan of Care End Date 11/25/21 Therapeutic Interventions Therapeutic Interventions Aquatic Therapy,Balance Training,Gait Training,Home Exercise Program,Joint Mobilizations,Manual Therapy, Neuromuscular Re-education, Patient/Caregiver Education, Self-Care/Home Management,Soft Tissue Mobilization, Therapeutic Activities, Therapeutic Exercises Modalities Cold Pack/Ice Massage,Electric Stimulation,Hot Packs, Ultrasound Next Visit Focus/Plan Next Note Type Treatment Note Next Visit Plan ROM, strengthening, gait training
--- NOTE | 2021-08-27 17:38 | PT.OPPOC ---
Physical, Occupational & Speech Therapy At [facility] Current Diagnoses Unilateral primary osteoarthritis, left knee (08/27/21) Effusion, left knee (08/27/21) Other abnormalities of gait and mobility (08/27/21) Presence of left artificial knee joint (08/27/21) Visit Care Team Role Provider Type Raquel Blanton PA-C Family Provider Non-Staff Primary Care Provider Specialty: Internal Medicine Address: [address] [place] [address], [address] Email: [email or web address] Alejandra Corbett MD Attending Provider Physician Referring Provider Specialty: Orthopedics Orthopedic Surgery Address: [address] [place] [address], [address] Email: @[employer] Plan Of Care PT-OP-T Assessment and Plan Start: 08/27/21 10:20 Freq: Status: Active Protocol: Document 08/27/21 09:45 DCW (Rec: 08/27/21 17:38 DCW [id number]) Physical Therapy Assessment Evaluation Complexity Number of Personal Factors/Comorbidities 3 or More Number of Body Systems Impaired 1-2 Clinical Presentation at Evaluation Stable Impairments Impairments Activity Tolerance,Balance, Edema,Functional Activities, Functional Mobility,Gait,Pain, ROM,Soft Tissue Mobility, Strength,Tone Goals Three Impairment Pt scores a 13.38 on TUG Receiver/Laborer Goal (LTG) Pt to decrease TUG score to at least 10 without an assistive device in order to show decreased falls risk and improved functional gait LTG Duration 11/25/21 Two Impairment Left knee ROM restricted to 24 -85? Receiver/Laborer Goal (LTG) Left knee ROM to improve to 0- 120? to increase functional mobility LTG Duration 11/25/21 One Impairment Pt does not have an appropriate home exercise program Short Term Goal (STG) Pt to be independent and compliant with an appropriate HEP STG Duration 09/26/21 Assessment Summary Assessment Pt presents as expected nearly one week s/p left TKA. Pt demonstrates decreased ROM, edema, bruising, weakness, and gait difficulty. Pt doing well with his post-surgical HEP, will work to advance as needed while he heals. Pt has previously undergone right TKA , and demonstrates good understanding with recovery process. At baseline, pt does report some SOB, thyroid dysfunction, and anemia. Pt should benefit from post-op skilled therapy to improve gait, ROM, and strength. Physical Therapy Plan Frequency and Duration Frequency of Treatment 2x/Week Duration of Treatment 90 days Plan of Care Start Date 08/27/21 Plan of Care End Date 11/25/21 Therapeutic Interventions Therapeutic Interventions Aquatic Therapy,Balance Training,Gait Training,Home Exercise Program,Joint Mobilizations,Manual Therapy, Neuromuscular Re-education, Patient/Caregiver Education, Self-Care/Home Management,Soft Tissue Mobilization, Therapeutic Activities, Therapeutic Exercises Modalities Cold Pack/Ice Massage,Electric Stimulation,Hot Packs, Ultrasound Next Visit Focus/Plan Next Note Type Treatment Note Next Visit Plan ROM, strengthening, gait training Plan of Care Dates Plan of Care Start Date 08/27/21 Plan of Care End Date 11/25/21 Electronically Signed by: Sheldon Huddleston, PT 08/27/21 [id number] If you are in agreement with this Plan of Care, please return a signed and dated copy. I have reviewed this Plan of Care and certify that the skilled therapy services above are required to meet the patient?s needs. Physician Signature Date Printed Name and Credentials Clinical Instructor Signature Printed Name and Credentials
--- NOTE | 2021-08-31 10:30 | PT.OTN ---
Current Diagnoses Unilateral primary osteoarthritis, left knee (08/31/21) Effusion, left knee (08/31/21) Other abnormalities of gait and mobility (08/31/21) Presence of left artificial knee joint (08/31/21) Physical Therapy Treatment Note PT-OP-A Visit Information Start: 08/27/21 10:20 Freq: Status: Active Protocol: Document 08/31/21 09:45 DCW (Rec: 08/31/21 10:30 DCW [id number]) Out-Patient Physical Therapy Visit Information Visit Information Visit Type Treatment Note Visit Start Time 09:45 Visit Stop Time 10:40 Total Visit Minutes 55 Visit Number 2 Number of LIBRARY CLERK TALKING BOOKS Visits 0 Evaluation Information Evaluation Date 08/27/21 PT-OP-B Current Condition Start: 08/27/21 10:20 Freq: Status: Active Protocol: Document 08/27/21 09:45 DCW (Rec: 08/27/21 10:26 DCW [id number]) Current Condition History of Current Condition Onset Date 08/21/21 Current Complaints Left TKA History of Current Condition Pt is a 75 year old male presenting to skilled therapy six days s/p left TKA. Pt is additionally one year s/p R TKA. Pt feels his recovery is going well, he had been working hard pre-op with LE strengthening exercises. Does note he is still having moderate left knee pain, which has limited his sleep. Pt ambulates with a FWW at this time, does have a SPC available. Also notes that following discharge from outpatient PT for his right TKA, he obtained trekking poles and has been using those a lot prior to this most recent TKA. Pt notes increased LE edema and bruising in his left LE. Prior Treatments and Tests R TKA August 2020 PT-OP-C Subjective Start: 08/27/21 10:20 Freq: Status: Active Protocol: Document 08/31/21 09:45 DCW (Rec: 08/31/21 10:30 DCW [id number]) OP-PT Subjective Patient Comments Patient Comments I had a really hard night last night. It was really aching, I couldn't get it comfortable, it was just really driving me nuts. PT-OP-E Functional Tests Start: 08/27/21 10:20 Freq: Status: Active Protocol: Document 08/27/21 09:45 DCW (Rec: 08/27/21 10:29 DCW [id number]) Functional Tests 6 Minute Walk Test Distance 759' Device Used FWW Comments 2.11 ft/sec Timed Up and Go (TUG) Score 13.38 /c FWW Comments 3-trial average (13.94, 13.08 , 13.12) TUG Impairment Rating 20 to <40% Impaired (Score 12- 13) PT-OP-K Range of Motion Start: 08/27/21 10:20 Freq: Status: Active Protocol: Document 08/27/21 09:45 DCW (Rec: 08/27/21 10:29 DCW [id number]) Knee Goniometric Range of Motion Knee Right Patient Position Sitting Flexion Active (degrees) 118 Extension Active (degrees) 2 Left Knee ROM WFL No Patient Position Sitting Flexion Active (degrees) 85 Extension Active (degrees) 24 PT-OP-M Strength Start: 08/27/21 10:20 Freq: Status: Active Protocol: Document 08/27/21 09:45 DCW (Rec: 08/27/21 12:02 DCW [id number]) Knee Strength Knee Manual Muscle Testing Right Flexion (S2) 5 Normal Extension (L3) 5 Normal Left Flexion (S2) 4+ Good+ Extension (L3) 3- Fair- PT-OP-Q Treatments Start: 08/27/21 10:20 Freq: Status: Active Protocol: Document 08/31/21 09:45 DCW (Rec: 08/31/21 10:30 DCW [id number]) Cardio Equipment Recumbent Bicycle Duration (Minutes) 5 Resistance 0 Seat Position 1 Other partial rotations Therapeutic Exercises Supine Exercises Extension Stretch Supine Exercise Name Passive knee ext stretch Side left SAQ Supine Exercise Name SAQ Side bilateral Resistance 2# SLR Supine Exercise Name SLR Side bilateral Resistance 2# Sitting Exercises Hamstring Curls Sitting Exercise Name HS Curls Side left Resistance Lv 2 LAQ Sitting Exercise Name LAQ Side bilateral Resistance 4# Standing Exercises Flexion Stretch Standing Exercise Name Step flexion stretch Side left Hip Abduction Standing Exercise Name Abd Side bilateral Resistance Lv 2 Hip Extension Standing Exercise Name Ext Side bilateral Resistance Lv 2 TKE Standing Exercise Name TKE Side left Resistance Lv 2 PT-OP-R Modalities Start: 08/31/21 10:30 Freq: Status: Active Protocol: Document 08/31/21 09:45 DCW (Rec: 08/31/21 10:30 DCW [id number]) Electric Stimulation Electric Stimulation Interferential Current (IFC) Body Location L knee Duration (Minutes) 15 Patient Position Hooklying Combined With Heat/Cold Cold Pack PT-OP-T Assessment and Plan Start: 08/27/21 10:20 Freq: Status: Active Protocol: Document 08/31/21 09:45 DCW (Rec: 08/31/21 10:30 DCW [id number]) Physical Therapy Assessment Impairments Impairments Activity Tolerance,Balance, Edema,Functional Activities, Functional Mobility,Gait,Pain, ROM,Soft Tissue Mobility, Strength,Tone Goals Three Impairment Pt scores a 13.38 on TUG Cutting Machine Tender Goal (LTG) Pt to decrease TUG score to at least 10 without an assistive device in order to show decreased falls risk and improved functional gait LTG Duration 11/25/21 Two Impairment Left knee ROM restricted to 24 -85? Nursing Home Goal (LTG) Left knee ROM to improve to 0- 120? to increase functional mobility LTG Duration 11/25/21 One Impairment Pt does not have an appropriate home exercise program Short Term Goal (STG) Pt to be independent and compliant with an appropriate HEP STG Duration 09/26/21 Assessment Summary Assessment Pt tolerated treatment fairly well, improving ROM today, showing some decrease in edema in left LE. Trial of e-stim after session for pain control . Physical Therapy Plan Frequency and Duration Frequency of Treatment 2x/Week Duration of Treatment 90 days Plan of Care Start Date 08/27/21 Plan of Care End Date 11/25/21 Therapeutic Interventions Therapeutic Interventions Aquatic Therapy,Balance Training,Gait Training,Home Exercise Program,Joint Mobilizations,Manual Therapy, Neuromuscular Re-education, Patient/Caregiver Education, Self-Care/Home Management,Soft Tissue Mobilization, Therapeutic Activities, Therapeutic Exercises Modalities Cold Pack/Ice Massage,Electric Stimulation,Hot Packs, Ultrasound Next Visit Focus/Plan Next Note Type Treatment Note Next Visit Plan ROM, strengthening, gait training
--- NOTE | 2021-09-03 10:29 | PT.OTN ---
Current Diagnoses Unilateral primary osteoarthritis, left knee (09/03/21) Effusion, left knee (09/03/21) Other abnormalities of gait and mobility (09/03/21) Presence of left artificial knee joint (09/03/21) Physical Therapy Treatment Note PT-OP-A Visit Information Start: 08/27/21 10:20 Freq: Status: Active Protocol: Document 09/03/21 09:45 DCW (Rec: 09/03/21 10:29 DCW [id number]) Out-Patient Physical Therapy Visit Information Visit Information Visit Type Treatment Note Visit Start Time 09:45 Visit Stop Time 10:40 Total Visit Minutes 55 Visit Number 3 Number of MORTGAGE LOAN REVIEWER Visits 0 Evaluation Information Evaluation Date 08/27/21 PT-OP-B Current Condition Start: 08/27/21 10:20 Freq: Status: Active Protocol: Document 08/27/21 09:45 DCW (Rec: 08/27/21 10:26 DCW [id number]) Current Condition History of Current Condition Onset Date 08/21/21 Current Complaints Left TKA History of Current Condition Pt is a 75 year old male presenting to skilled therapy six days s/p left TKA. Pt is additionally one year s/p R TKA. Pt feels his recovery is going well, he had been working hard pre-op with LE strengthening exercises. Does note he is still having moderate left knee pain, which has limited his sleep. Pt ambulates with a FWW at this time, does have a SPC available. Also notes that following discharge from outpatient PT for his right TKA, he obtained trekking poles and has been using those a lot prior to this most recent TKA. Pt notes increased LE edema and bruising in his left LE. Prior Treatments and Tests R TKA August 2020 PT-OP-C Subjective Start: 08/27/21 10:20 Freq: Status: Active Protocol: Document 09/03/21 09:45 DCW (Rec: 09/03/21 10:29 DCW [id number]) OP-PT Subjective Patient Comments Patient Comments It's been aching pretty good. PT-OP-E Functional Tests Start: 08/27/21 10:20 Freq: Status: Active Protocol: Document 08/27/21 09:45 DCW (Rec: 08/27/21 10:29 DCW [id number]) Functional Tests 6 Minute Walk Test Distance 759' Device Used FWW Comments 2.11 ft/sec Timed Up and Go (TUG) Score 13.38 /c FWW Comments 3-trial average (13.94, 13.08 , 13.12) TUG Impairment Rating 20 to <40% Impaired (Score 12- 13) PT-OP-K Range of Motion Start: 08/27/21 10:20 Freq: Status: Active Protocol: Document 08/27/21 09:45 DCW (Rec: 08/27/21 10:29 DCW [id number]) Knee Goniometric Range of Motion Knee Right Patient Position Sitting Flexion Active (degrees) 118 Extension Active (degrees) 2 Left Knee ROM WFL No Patient Position Sitting Flexion Active (degrees) 85 Extension Active (degrees) 24 PT-OP-M Strength Start: 08/27/21 10:20 Freq: Status: Active Protocol: Document 08/27/21 09:45 DCW (Rec: 08/27/21 12:02 DCW [id number]) Knee Strength Knee Manual Muscle Testing Right Flexion (S2) 5 Normal Extension (L3) 5 Normal Left Flexion (S2) 4+ Good+ Extension (L3) 3- Fair- PT-OP-Q Treatments Start: 08/27/21 10:20 Freq: Status: Active Protocol: Document 09/03/21 09:45 DCW (Rec: 09/03/21 10:29 DCW [id number]) Cardio Equipment Recumbent Bicycle Duration (Minutes) 5 Resistance 0 Seat Position 1 Other partial rotations Gym Equipment Shuttle Recovery Bilateral Squats Resistance 50# Shuttle Recovery Platform Stable Reps/Time Hold at end-range flexion 2-3 seconds Therapeutic Exercises Supine Exercises SLR Supine Exercise Name SLR Side bilateral Resistance 2# Sitting Exercises Hamstring Curls Sitting Exercise Name HS Curls Side bilateral Resistance Lv 2 LAQ Sitting Exercise Name LAQ Side bilateral Resistance 4# Standing Exercises Flexion Stretch Standing Exercise Name Step flexion stretch Side left Hip Abduction Standing Exercise Name Abd Side bilateral Resistance Lv 2 Hip Extension Standing Exercise Name Ext Side bilateral Resistance Lv 2 TKE Standing Exercise Name TKE Side left Resistance Lv 2 PT-OP-R Modalities Start: 08/31/21 10:30 Freq: Status: Active Protocol: Document 09/03/21 09:45 DCW (Rec: 09/03/21 10:29 DCW [id number]) Electric Stimulation Electric Stimulation Interferential Current (IFC) Body Location L knee Duration (Minutes) 15 Patient Position Hooklying Combined With Heat/Cold Cold Pack PT-OP-T Assessment and Plan Start: 08/27/21 10:20 Freq: Status: Active Protocol: Document 09/03/21 09:45 DCW (Rec: 09/03/21 10:29 DCW [id number]) Physical Therapy Assessment Impairments Impairments Activity Tolerance,Balance, Edema,Functional Activities, Functional Mobility,Gait,Pain, ROM,Soft Tissue Mobility, Strength,Tone Goals Three Impairment Pt scores a 13.38 on TUG Senior Care Goal (LTG) Pt to decrease TUG score to at least 10 without an assistive device in order to show decreased falls risk and improved functional gait LTG Duration 11/25/21 Two Impairment Left knee ROM restricted to 24 -85? Maintenance Manager Goal (LTG) Left knee ROM to improve to 0- 120? to increase functional mobility LTG Duration 11/25/21 One Impairment Pt does not have an appropriate home exercise program Short Term Goal (STG) Pt to be independent and compliant with an appropriate HEP STG Duration 09/26/21 Assessment Summary Assessment Pt showing clearly improved ROM after removal of post-op bandage yesterday. Pt tolerating treatment well, no concerns at this time. Physical Therapy Plan Frequency and Duration Frequency of Treatment 2x/Week Duration of Treatment 90 days Plan of Care Start Date 08/27/21 Plan of Care End Date 11/25/21 Therapeutic Interventions Therapeutic Interventions Aquatic Therapy,Balance Training,Gait Training,Home Exercise Program,Joint Mobilizations,Manual Therapy, Neuromuscular Re-education, Patient/Caregiver Education, Self-Care/Home Management,Soft Tissue Mobilization, Therapeutic Activities, Therapeutic Exercises Modalities Cold Pack/Ice Massage,Electric Stimulation,Hot Packs, Ultrasound Next Visit Focus/Plan Next Note Type Treatment Note Next Visit Plan ROM, strengthening, gait training
--- NOTE | 2021-09-08 10:30 | PT.OTN ---
Current Diagnoses Unilateral primary osteoarthritis, left knee (09/08/21) Effusion, left knee (09/08/21) Other abnormalities of gait and mobility (09/08/21) Presence of left artificial knee joint (09/08/21) Physical Therapy Treatment Note PT-OP-A Visit Information Start: 08/27/21 10:20 Freq: Status: Active Protocol: Document 09/08/21 09:45 DCW (Rec: 09/08/21 10:30 DCW [id number]) Out-Patient Physical Therapy Visit Information Visit Information Visit Type Treatment Note Visit Start Time 09:45 Visit Stop Time 10:40 Total Visit Minutes 55 Visit Number 3 Number of EDITOR MAP Visits 0 Evaluation Information Evaluation Date 08/27/21 PT-OP-B Current Condition Start: 08/27/21 10:20 Freq: Status: Active Protocol: Document 08/27/21 09:45 DCW (Rec: 08/27/21 10:26 DCW [id number]) Current Condition History of Current Condition Onset Date 08/21/21 Current Complaints Left TKA History of Current Condition Pt is a 75 year old male presenting to skilled therapy six days s/p left TKA. Pt is additionally one year s/p R TKA. Pt feels his recovery is going well, he had been working hard pre-op with LE strengthening exercises. Does note he is still having moderate left knee pain, which has limited his sleep. Pt ambulates with a FWW at this time, does have a SPC available. Also notes that following discharge from outpatient PT for his right TKA, he obtained trekking poles and has been using those a lot prior to this most recent TKA. Pt notes increased LE edema and bruising in his left LE. Prior Treatments and Tests R TKA August 2020 PT-OP-C Subjective Start: 08/27/21 10:20 Freq: Status: Active Protocol: Document 09/08/21 09:45 DCW (Rec: 09/08/21 10:30 DCW [id number]) OP-PT Subjective Patient Comments Patient Comments I parked the buggy for the stick. Pt comes in today using one trekking pole instead of his 4WW. PT-OP-E Functional Tests Start: 08/27/21 10:20 Freq: Status: Active Protocol: Document 08/27/21 09:45 DCW (Rec: 08/27/21 10:29 DCW [id number]) Functional Tests 6 Minute Walk Test Distance 759' Device Used FWW Comments 2.11 ft/sec Timed Up and Go (TUG) Score 13.38 /c FWW Comments 3-trial average (13.94, 13.08 , 13.12) TUG Impairment Rating 20 to <40% Impaired (Score 12- 13) PT-OP-K Range of Motion Start: 08/27/21 10:20 Freq: Status: Active Protocol: Document 08/27/21 09:45 DCW (Rec: 08/27/21 10:29 DCW [id number]) Knee Goniometric Range of Motion Knee Right Patient Position Sitting Flexion Active (degrees) 118 Extension Active (degrees) 2 Left Knee ROM WFL No Patient Position Sitting Flexion Active (degrees) 85 Extension Active (degrees) 24 PT-OP-M Strength Start: 08/27/21 10:20 Freq: Status: Active Protocol: Document 08/27/21 09:45 DCW (Rec: 08/27/21 12:02 DCW [id number]) Knee Strength Knee Manual Muscle Testing Right Flexion (S2) 5 Normal Extension (L3) 5 Normal Left Flexion (S2) 4+ Good+ Extension (L3) 3- Fair- PT-OP-Q Treatments Start: 08/27/21 10:20 Freq: Status: Active Protocol: Document 09/08/21 09:45 DCW (Rec: 09/08/21 10:30 DCW [id number]) Cardio Equipment Recumbent Bicycle Duration (Minutes) 5 Resistance 0 Seat Position 1 Other full rotations Gym Equipment Shuttle Recovery Bilateral Squats Resistance 50# Shuttle Recovery Platform Stable Reps/Time Hold at end-range flexion 2-3 seconds Therapeutic Ball Resisted hip/knee flexion Exercise Details Resosted hip/knee Flexion Ball Size/Color Red - 55 cm Lv 3 T-band Knee flexion Exercise Details Flexion /c strap Ball Size/Color Red - 55 cm Body Position Supine Reps/Duration 5 hold x10 Therapeutic Exercises Supine Exercises SLR Supine Exercise Name SLR Side bilateral Resistance 5# Sitting Exercises Hamstring Curls Sitting Exercise Name HS Curls Side bilateral Resistance Lv 3 LAQ Sitting Exercise Name LAQ Side bilateral Resistance 5# Standing Exercises Step-ups Standing Exercise Name Step-ups Side left Equipment Used 6 step Flexion Stretch Standing Exercise Name Step flexion stretch Side left PT-OP-R Modalities Start: 08/31/21 10:30 Freq: Status: Active Protocol: Document 09/08/21 09:45 DCW (Rec: 09/08/21 10:30 DCW [id number]) Electric Stimulation Electric Stimulation Interferential Current (IFC) Body Location L knee Duration (Minutes) 15 Patient Position Hooklying Combined With Heat/Cold Cold Pack PT-OP-T Assessment and Plan Start: 08/27/21 10:20 Freq: Status: Active Protocol: Document 09/08/21 09:45 DCW (Rec: 09/08/21 10:30 DCW [id number]) Physical Therapy Assessment Impairments Impairments Activity Tolerance,Balance, Edema,Functional Activities, Functional Mobility,Gait,Pain, ROM,Soft Tissue Mobility, Strength,Tone Goals Three Impairment Pt scores a 13.38 on TUG Aerodynamics Teacher Goal (LTG) Pt to decrease TUG score to at least 10 without an assistive device in order to show decreased falls risk and improved functional gait LTG Duration 11/25/21 Two Impairment Left knee ROM restricted to 24 -85? [facility] Goal (LTG) Left knee ROM to improve to 0- 120? to increase functional mobility LTG Duration 11/25/21 One Impairment Pt does not have an appropriate home exercise program Short Term Goal (STG) Pt to be independent and compliant with an appropriate HEP STG Duration 09/26/21 Assessment Summary Assessment Pt continuing to progress well with strength and ROM. Able to perform full rotations of recumbent bike today. Doing well with HEP, will likely progress independent exercise. Will likely start scar mobs within the next week. Physical Therapy Plan Frequency and Duration Frequency of Treatment 2x/Week Duration of Treatment 90 days Plan of Care Start Date 08/27/21 Plan of Care End Date 11/25/21 Therapeutic Interventions Therapeutic Interventions Aquatic Therapy,Balance Training,Gait Training,Home Exercise Program,Joint Mobilizations,Manual Therapy, Neuromuscular Re-education, Patient/Caregiver Education, Self-Care/Home Management,Soft Tissue Mobilization, Therapeutic Activities, Therapeutic Exercises Modalities Cold Pack/Ice Massage,Electric Stimulation,Hot Packs, Ultrasound Next Visit Focus/Plan Next Note Type Treatment Note Next Visit Plan ROM, strengthening, gait training
--- NOTE | 2021-09-10 10:25 | PT.OTN ---
Current Diagnoses Unilateral primary osteoarthritis, left knee (09/10/21) Effusion, left knee (09/10/21) Other abnormalities of gait and mobility (09/10/21) Presence of left artificial knee joint (09/10/21) Physical Therapy Treatment Note PT-OP-A Visit Information Start: 08/27/21 10:20 Freq: Status: Active Protocol: Document 09/10/21 09:45 DCW (Rec: 09/10/21 10:25 DCW [id number]) Out-Patient Physical Therapy Visit Information Visit Information Visit Type Treatment Note Visit Start Time 09:45 Visit Stop Time 10:40 Total Visit Minutes 55 Visit Number 5 Number of GARNETT MECHANIC Visits 0 Evaluation Information Evaluation Date 08/27/21 PT-OP-B Current Condition Start: 08/27/21 10:20 Freq: Status: Active Protocol: Document 08/27/21 09:45 DCW (Rec: 08/27/21 10:26 DCW [id number]) Current Condition History of Current Condition Onset Date 08/21/21 Current Complaints Left TKA History of Current Condition Pt is a 75 year old male presenting to skilled therapy six days s/p left TKA. Pt is additionally one year s/p R TKA. Pt feels his recovery is going well, he had been working hard pre-op with LE strengthening exercises. Does note he is still having moderate left knee pain, which has limited his sleep. Pt ambulates with a FWW at this time, does have a SPC available. Also notes that following discharge from outpatient PT for his right TKA, he obtained trekking poles and has been using those a lot prior to this most recent TKA. Pt notes increased LE edema and bruising in his left LE. Prior Treatments and Tests R TKA August 2020 PT-OP-C Subjective Start: 08/27/21 10:20 Freq: Status: Active Protocol: Document 09/10/21 09:45 DCW (Rec: 09/10/21 10:25 DCW [id number]) OP-PT Subjective Patient Comments Patient Comments I just couldn't get comfortable last night. PT-OP-E Functional Tests Start: 08/27/21 10:20 Freq: Status: Active Protocol: Document 08/27/21 09:45 DCW (Rec: 08/27/21 10:29 DCW [id number]) Functional Tests 6 Minute Walk Test Distance 759' Device Used FWW Comments 2.11 ft/sec Timed Up and Go (TUG) Score 13.38 /c FWW Comments 3-trial average (13.94, 13.08 , 13.12) TUG Impairment Rating 20 to <40% Impaired (Score 12- 13) PT-OP-K Range of Motion Start: 08/27/21 10:20 Freq: Status: Active Protocol: Document 08/27/21 09:45 DCW (Rec: 08/27/21 10:29 DCW [id number]) Knee Goniometric Range of Motion Knee Right Patient Position Sitting Flexion Active (degrees) 118 Extension Active (degrees) 2 Left Knee ROM WFL No Patient Position Sitting Flexion Active (degrees) 85 Extension Active (degrees) 24 PT-OP-M Strength Start: 08/27/21 10:20 Freq: Status: Active Protocol: Document 08/27/21 09:45 DCW (Rec: 08/27/21 12:02 DCW [id number]) Knee Strength Knee Manual Muscle Testing Right Flexion (S2) 5 Normal Extension (L3) 5 Normal Left Flexion (S2) 4+ Good+ Extension (L3) 3- Fair- PT-OP-Q Treatments Start: 08/27/21 10:20 Freq: Status: Active Protocol: Document 09/10/21 09:45 DCW (Rec: 09/10/21 10:25 DCW [id number]) Cardio Equipment Recumbent Bicycle Duration (Minutes) 5 Resistance 2 Seat Position 1 Gym Equipment Shuttle Recovery Bilateral Squats Resistance 62# Shuttle Recovery Platform Stable Reps/Time Hold at end-range flexion 2-3 seconds Therapeutic Ball Resisted hip/knee flexion Exercise Details Resisted hip/knee Flexion Ball Size/Color Red - 55 cm Lv 3 T-band Knee flexion Exercise Details Flexion /c strap Ball Size/Color Red - 55 cm Body Position Supine Reps/Duration 5 hold x10 Therapeutic Exercises Supine Exercises SLR Supine Exercise Name SLR Side bilateral Resistance 5# Sitting Exercises Hamstring Curls Sitting Exercise Name HS Curls Side bilateral Resistance Lv 3 LAQ Sitting Exercise Name LAQ Side bilateral Resistance 5# Standing Exercises Step-ups Standing Exercise Name Step-ups/downs Side left Equipment Used 6 step Flexion Stretch Standing Exercise Name Step flexion stretch Side left Manual Therapy Treatment Joint Mobilizations Tib-Fib Joint L Tib-Fib Direction P->A Grade III Body Position Hooklying PT-OP-R Modalities Start: 08/31/21 10:30 Freq: Status: Active Protocol: Document 09/10/21 09:45 DCW (Rec: 09/10/21 10:25 DCW [id number]) Electric Stimulation Electric Stimulation Interferential Current (IFC) Body Location L knee Duration (Minutes) 15 Patient Position Hooklying Combined With Heat/Cold Cold Pack PT-OP-T Assessment and Plan Start: 08/27/21 10:20 Freq: Status: Active Protocol: Document 09/10/21 09:45 DCW (Rec: 09/10/21 10:25 DCW [id number]) Physical Therapy Assessment Impairments Impairments Activity Tolerance,Balance, Edema,Functional Activities, Functional Mobility,Gait,Pain, ROM,Soft Tissue Mobility, Strength,Tone Goals Three Impairment Pt scores a 13.38 on TUG Detention Goal (LTG) Pt to decrease TUG score to at least 10 without an assistive device in order to show decreased falls risk and improved functional gait LTG Duration 11/25/21 Two Impairment Left knee ROM restricted to 24 -85? Detention Goal (LTG) Left knee ROM to improve to 0- 120? to increase functional mobility LTG Duration 11/25/21 One Impairment Pt does not have an appropriate home exercise program Short Term Goal (STG) Pt to be independent and compliant with an appropriate HEP STG Duration 09/26/21 Assessment Summary Assessment Pt showing increasing strength , ambulation improving. Did well with knee mobs today. Physical Therapy Plan Frequency and Duration Frequency of Treatment 2x/Week Duration of Treatment 90 days Plan of Care Start Date 08/27/21 Plan of Care End Date 11/25/21 Therapeutic Interventions Therapeutic Interventions Aquatic Therapy,Balance Training,Gait Training,Home Exercise Program,Joint Mobilizations,Manual Therapy, Neuromuscular Re-education, Patient/Caregiver Education, Self-Care/Home Management,Soft Tissue Mobilization, Therapeutic Activities, Therapeutic Exercises Modalities Cold Pack/Ice Massage,Electric Stimulation,Hot Packs, Ultrasound Next Visit Focus/Plan Next Note Type Treatment Note Next Visit Plan ROM, strengthening, gait training
--- NOTE | 2021-09-14 10:29 | PT.OTN ---
Current Diagnoses Unilateral primary osteoarthritis, left knee (09/14/21) Effusion, left knee (09/14/21) Other abnormalities of gait and mobility (09/14/21) Presence of left artificial knee joint (09/14/21) Physical Therapy Treatment Note PT-OP-A Visit Information Start: 08/27/21 10:20 Freq: Status: Active Protocol: Document 09/14/21 09:45 DCW (Rec: 09/14/21 10:29 DCW [id number]) Out-Patient Physical Therapy Visit Information Visit Information Visit Type Treatment Note Visit Start Time 09:45 Visit Stop Time 10:35 Total Visit Minutes 50 Visit Number 6 Number of COMMUNITY MENTAL HEALTH WORKER Visits 0 Evaluation Information Evaluation Date 08/27/21 PT-OP-B Current Condition Start: 08/27/21 10:20 Freq: Status: Active Protocol: Document 08/27/21 09:45 DCW (Rec: 08/27/21 10:26 DCW [id number]) Current Condition History of Current Condition Onset Date 08/21/21 Current Complaints Left TKA History of Current Condition Pt is a 75 year old male presenting to skilled therapy six days s/p left TKA. Pt is additionally one year s/p R TKA. Pt feels his recovery is going well, he had been working hard pre-op with LE strengthening exercises. Does note he is still having moderate left knee pain, which has limited his sleep. Pt ambulates with a FWW at this time, does have a SPC available. Also notes that following discharge from outpatient PT for his right TKA, he obtained trekking poles and has been using those a lot prior to this most recent TKA. Pt notes increased LE edema and bruising in his left LE. Prior Treatments and Tests R TKA August 2020 PT-OP-C Subjective Start: 08/27/21 10:20 Freq: Status: Active Protocol: Document 09/14/21 09:45 DCW (Rec: 09/14/21 10:29 DCW [id number]) OP-PT Subjective Patient Comments Patient Comments I've been walking around the house without the stick more. PT-OP-E Functional Tests Start: 08/27/21 10:20 Freq: Status: Active Protocol: Document 08/27/21 09:45 DCW (Rec: 08/27/21 10:29 DCW [id number]) Functional Tests 6 Minute Walk Test Distance 759' Device Used FWW Comments 2.11 ft/sec Timed Up and Go (TUG) Score 13.38 /c FWW Comments 3-trial average (13.94, 13.08 , 13.12) TUG Impairment Rating 20 to <40% Impaired (Score 12- 13) PT-OP-K Range of Motion Start: 08/27/21 10:20 Freq: Status: Active Protocol: Document 08/27/21 09:45 DCW (Rec: 08/27/21 10:29 DCW [id number]) Knee Goniometric Range of Motion Knee Right Patient Position Sitting Flexion Active (degrees) 118 Extension Active (degrees) 2 Left Knee ROM WFL No Patient Position Sitting Flexion Active (degrees) 85 Extension Active (degrees) 24 PT-OP-M Strength Start: 08/27/21 10:20 Freq: Status: Active Protocol: Document 08/27/21 09:45 DCW (Rec: 08/27/21 12:02 DCW [id number]) Knee Strength Knee Manual Muscle Testing Right Flexion (S2) 5 Normal Extension (L3) 5 Normal Left Flexion (S2) 4+ Good+ Extension (L3) 3- Fair- PT-OP-Q Treatments Start: 08/27/21 10:20 Freq: Status: Active Protocol: Document 09/14/21 09:45 DCW (Rec: 09/14/21 10:29 DCW [id number]) Cardio Equipment Recumbent Bicycle Duration (Minutes) 5 Resistance 3 Seat Position 1 Gym Equipment Shuttle Recovery Bilateral Squats Resistance 62# Shuttle Recovery Platform Stable Reps/Time Hold at end-range flexion 2-3 seconds Therapeutic Exercises Sitting Exercises Hamstring Curls Sitting Exercise Name HS Curls Side bilateral Resistance Lv 3 LAQ Sitting Exercise Name LAQ Side bilateral Resistance 5# Standing Exercises Step-ups Standing Exercise Name Step-ups/downs Side left Equipment Used 6 step Manual Therapy Treatment Soft Tissue Mobilization Scar mobs Body Location L TKA scar Mobilization Type Cross-Friction,Other Intensity/Depth Superficial Body Position Supine Joint Mobilizations Patellofemoral Joint Patellofemoral Grade III Body Position Supine Tib-Fib Joint L Tib-Fib Direction P->A Grade III Body Position Hooklying PT-OP-R Modalities Start: 08/31/21 10:30 Freq: Status: Active Protocol: Document 09/14/21 09:45 DCW (Rec: 09/14/21 10:29 DC [id number]) Hot Pack/Cold Pack Treatment R knee Location Left knee Patient Position Hooklying PT-OP-T Assessment and Plan Start: 08/27/21 10:20 Freq: Status: Active Protocol: Document 09/14/21 09:45 DCW (Rec: 09/14/21 10:29 DC [id number]) Physical Therapy Assessment Impairments Impairments Activity Tolerance,Balance, Edema,Functional Activities, Functional Mobility,Gait,Pain, ROM,Soft Tissue Mobility, Strength,Tone Goals Three Impairment Pt scores a 13.38 on TUG Unix Consultant Goal (LTG) Pt to decrease TUG score to at least 10 without an assistive device in order to show decreased falls risk and improved functional gait LTG Duration 11/25/21 Two Impairment Left knee ROM restricted to 24 -85? Nursing Home Goal (LTG) Left knee ROM to improve to 0- 120? to increase functional mobility LTG Duration 11/25/21 One Impairment Pt does not have an appropriate home exercise program Short Term Goal (STG) Pt to be independent and compliant with an appropriate HEP STG Duration 09/26/21 Assessment Summary Assessment Started scar mobs today, tolerated well. Progressing well post-op. Physical Therapy Plan Frequency and Duration Frequency of Treatment 2x/Week Duration of Treatment 90 days Plan of Care Start Date 08/27/21 Plan of Care End Date 11/25/21 Therapeutic Interventions Therapeutic Interventions Aquatic Therapy,Balance Training,Gait Training,Home Exercise Program,Joint Mobilizations,Manual Therapy, Neuromuscular Re-education, Patient/Caregiver Education, Self-Care/Home Management,Soft Tissue Mobilization, Therapeutic Activities, Therapeutic Exercises Modalities Cold Pack/Ice Massage,Electric Stimulation,Hot Packs, Ultrasound Next Visit Focus/Plan Next Note Type Treatment Note Next Visit Plan ROM, strengthening, gait training
--- NOTE | 2021-09-17 10:28 | PT.OTN ---
Current Diagnoses Unilateral primary osteoarthritis, left knee (09/17/21) Effusion, left knee (09/17/21) Other abnormalities of gait and mobility (09/17/21) Presence of left artificial knee joint (09/17/21) Physical Therapy Treatment Note PT-OP-A Visit Information Start: 08/27/21 10:20 Freq: Status: Active Protocol: Document 09/17/21 09:45 DCW (Rec: 09/17/21 10:28 DCW [id number]) Out-Patient Physical Therapy Visit Information Visit Information Visit Type Treatment Note Visit Start Time 09:45 Visit Stop Time 10:40 Total Visit Minutes 55 Visit Number 7 Number of INTERIOR DESIGN PROFESSIONAL Visits 0 Evaluation Information Evaluation Date 08/27/21 PT-OP-B Current Condition Start: 08/27/21 10:20 Freq: Status: Active Protocol: Document 08/27/21 09:45 DCW (Rec: 08/27/21 10:26 DCW [id number]) Current Condition History of Current Condition Onset Date 08/21/21 Current Complaints Left TKA History of Current Condition Pt is a 75 year old male presenting to skilled therapy six days s/p left TKA. Pt is additionally one year s/p R TKA. Pt feels his recovery is going well, he had been working hard pre-op with LE strengthening exercises. Does note he is still having moderate left knee pain, which has limited his sleep. Pt ambulates with a FWW at this time, does have a SPC available. Also notes that following discharge from outpatient PT for his right TKA, he obtained trekking poles and has been using those a lot prior to this most recent TKA. Pt notes increased LE edema and bruising in his left LE. Prior Treatments and Tests R TKA August 2020 PT-OP-C Subjective Start: 08/27/21 10:20 Freq: Status: Active Protocol: Document 09/17/21 09:45 DCW (Rec: 09/17/21 10:28 DCW [id number]) OP-PT Subjective Patient Comments Patient Comments I was walking around a little in my yard this morning without my stick, I want to do that a little more each day. PT-OP-E Functional Tests Start: 08/27/21 10:20 Freq: Status: Active Protocol: Document 08/27/21 09:45 DCW (Rec: 08/27/21 10:29 DCW [id number]) Functional Tests 6 Minute Walk Test Distance 759' Device Used FWW Comments 2.11 ft/sec Timed Up and Go (TUG) Score 13.38 /c FWW Comments 3-trial average (13.94, 13.08 , 13.12) TUG Impairment Rating 20 to <40% Impaired (Score 12- 13) PT-OP-K Range of Motion Start: 08/27/21 10:20 Freq: Status: Active Protocol: Document 08/27/21 09:45 DCW (Rec: 08/27/21 10:29 DCW [id number]) Knee Goniometric Range of Motion Knee Right Patient Position Sitting Flexion Active (degrees) 118 Extension Active (degrees) 2 Left Knee ROM WFL No Patient Position Sitting Flexion Active (degrees) 85 Extension Active (degrees) 24 PT-OP-M Strength Start: 08/27/21 10:20 Freq: Status: Active Protocol: Document 08/27/21 09:45 DCW (Rec: 08/27/21 12:02 DCW [id number]) Knee Strength Knee Manual Muscle Testing Right Flexion (S2) 5 Normal Extension (L3) 5 Normal Left Flexion (S2) 4+ Good+ Extension (L3) 3- Fair- PT-OP-Q Treatments Start: 08/27/21 10:20 Freq: Status: Active Protocol: Document 09/17/21 09:45 DCW (Rec: 09/17/21 10:28 DCW [id number]) Cardio Equipment Recumbent Bicycle Duration (Minutes) 6 Resistance 5 Seat Position 1 Therapeutic Exercises Sitting Exercises Hamstring Curls Sitting Exercise Name HS Curls Side bilateral Resistance Lv 3 LAQ Sitting Exercise Name LAQ Side bilateral Resistance 5# Standing Exercises Step-ups Standing Exercise Name Step-ups/downs Side left Equipment Used 6 step Hip Abduction Standing Exercise Name Abd Side bilateral Resistance Red Hip Extension Standing Exercise Name Ext Side bilateral Resistance Red Other Exercises Resisted Amb Other Exercise Name Resisted side-stepping Resistance Red Equipment Used T-band loop Manual Therapy Treatment Joint Mobilizations Patellofemoral Joint Patellofemoral Grade III Body Position Supine Tib-Fib Joint L Tib-Fib Direction P->A Grade III Body Position Hooklying PT-OP-R Modalities Start: 08/31/21 10:30 Freq: Status: Active Protocol: Document 09/17/21 09:45 DCW (Rec: 09/17/21 10:28 DCW [id number]) Electric Stimulation Electric Stimulation Interferential Current (IFC) Body Location L knee Duration (Minutes) 15 Patient Position Hooklying Combined With Heat/Cold Cold Pack PT-OP-T Assessment and Plan Start: 08/27/21 10:20 Freq: Status: Active Protocol: Document 09/17/21 09:45 DCW (Rec: 09/17/21 10:28 DCW [id number]) Physical Therapy Assessment Impairments Impairments Activity Tolerance,Balance, Edema,Functional Activities, Functional Mobility,Gait,Pain, ROM,Soft Tissue Mobility, Strength,Tone Goals Three Impairment Pt scores a 13.38 on TUG Custodial Goal (LTG) Pt to decrease TUG score to at least 10 without an assistive device in order to show decreased falls risk and improved functional gait LTG Duration 11/25/21 Two Impairment Left knee ROM restricted to 24 -85? Foster Care Case Manager Goal (LTG) Left knee ROM to improve to 0- 120? to increase functional mobility LTG Duration 11/25/21 One Impairment Pt does not have an appropriate home exercise program Short Term Goal (STG) Pt to be independent and compliant with an appropriate HEP STG Duration 09/26/21 Assessment Summary Assessment Pt making great progress with mobility and post-op ROM, tolerates all activities in therapy very well. Physical Therapy Plan Frequency and Duration Frequency of Treatment 2x/Week Duration of Treatment 90 days Plan of Care Start Date 08/27/21 Plan of Care End Date 11/25/21 Therapeutic Interventions Therapeutic Interventions Aquatic Therapy,Balance Training,Gait Training,Home Exercise Program,Joint Mobilizations,Manual Therapy, Neuromuscular Re-education, Patient/Caregiver Education, Self-Care/Home Management,Soft Tissue Mobilization, Therapeutic Activities, Therapeutic Exercises Modalities Cold Pack/Ice Massage,Electric Stimulation,Hot Packs, Ultrasound Next Visit Focus/Plan Next Note Type Treatment Note Next Visit Plan ROM, strengthening, gait training
--- NOTE | 2021-09-21 10:30 | PT.OTN ---
Current Diagnoses Unilateral primary osteoarthritis, left knee (09/21/21) Effusion, left knee (09/21/21) Other abnormalities of gait and mobility (09/21/21) Presence of left artificial knee joint (09/21/21) Physical Therapy Treatment Note PT-OP-A Visit Information Start: 08/27/21 10:20 Freq: Status: Active Protocol: Document 09/21/21 09:45 DCW (Rec: 09/21/21 10:30 DCW [id number]) Out-Patient Physical Therapy Visit Information Visit Information Visit Type Treatment Note Visit Start Time 09:45 Visit Stop Time 10:35 Total Visit Minutes 50 Visit Number 8 Number of PASTA MAKER Visits 0 Evaluation Information Evaluation Date 08/27/21 PT-OP-B Current Condition Start: 08/27/21 10:20 Freq: Status: Active Protocol: Document 08/27/21 09:45 DCW (Rec: 08/27/21 10:26 DCW [id number]) Current Condition History of Current Condition Onset Date 08/21/21 Current Complaints Left TKA History of Current Condition Pt is a 75 year old male presenting to skilled therapy six days s/p left TKA. Pt is additionally one year s/p R TKA. Pt feels his recovery is going well, he had been working hard pre-op with LE strengthening exercises. Does note he is still having moderate left knee pain, which has limited his sleep. Pt ambulates with a FWW at this time, does have a SPC available. Also notes that following discharge from outpatient PT for his right TKA, he obtained trekking poles and has been using those a lot prior to this most recent TKA. Pt notes increased LE edema and bruising in his left LE. Prior Treatments and Tests R TKA August 2020 PT-OP-C Subjective Start: 08/27/21 10:20 Freq: Status: Active Protocol: Document 09/21/21 09:45 DCW (Rec: 09/21/21 10:30 DCW [id number]) OP-PT Subjective Patient Comments Patient Comments I spent most of yesterday without the stick, so by the time I got to bed, it was a little hard to get comfortable . PT-OP-E Functional Tests Start: 08/27/21 10:20 Freq: Status: Active Protocol: Document 08/27/21 09:45 DCW (Rec: 08/27/21 10:29 DCW [id number]) Functional Tests 6 Minute Walk Test Distance 759' Device Used FWW Comments 2.11 ft/sec Timed Up and Go (TUG) Score 13.38 /c FWW Comments 3-trial average (13.94, 13.08 , 13.12) TUG Impairment Rating 20 to <40% Impaired (Score 12- 13) PT-OP-K Range of Motion Start: 08/27/21 10:20 Freq: Status: Active Protocol: Document 08/27/21 09:45 DCW (Rec: 08/27/21 10:29 DCW [id number]) Knee Goniometric Range of Motion Knee Right Patient Position Sitting Flexion Active (degrees) 118 Extension Active (degrees) 2 Left Knee ROM WFL No Patient Position Sitting Flexion Active (degrees) 85 Extension Active (degrees) 24 PT-OP-M Strength Start: 08/27/21 10:20 Freq: Status: Active Protocol: Document 08/27/21 09:45 DCW (Rec: 08/27/21 12:02 DCW [id number]) Knee Strength Knee Manual Muscle Testing Right Flexion (S2) 5 Normal Extension (L3) 5 Normal Left Flexion (S2) 4+ Good+ Extension (L3) 3- Fair- PT-OP-Q Treatments Start: 08/27/21 10:20 Freq: Status: Active Protocol: Document 09/21/21 09:45 DCW (Rec: 09/21/21 10:30 DCW [id number]) Cardio Equipment Recumbent Bicycle Duration (Minutes) 6 Resistance 5 Seat Position 1 Gym Equipment Shuttle Recovery Bilateral Squats Resistance 100# Shuttle Recovery Platform Stable Reps/Time Hold at end-range flexion 2-3 seconds Shuttle Balance Red Details WBOS, Staggered Therapeutic Exercises Other Exercises Hurdles Other Exercise Name Stepping over hurdles Resisted Amb Other Exercise Name Resisted side-stepping Resistance Red Equipment Used T-band loop Manual Therapy Treatment Soft Tissue Mobilization Scar mobs Body Location L TKA scar Mobilization Type Cross-Friction,Other Intensity/Depth Superficial Body Position Supine Joint Mobilizations Patellofemoral Joint Patellofemoral Grade III Body Position Supine Tib-Fib Joint L Tib-Fib Direction P->A Grade III Body Position Hooklying PT-OP-R Modalities Start: 08/31/21 10:30 Freq: Status: Active Protocol: Document 09/21/21 09:45 DCW (Rec: 09/21/21 10:30 DCW [id number]) Hot Pack/Cold Pack Treatment R knee Location Left knee Patient Position Hooklying PT-OP-T Assessment and Plan Start: 08/27/21 10:20 Freq: Status: Active Protocol: Document 09/21/21 09:45 DCW (Rec: 09/21/21 10:30 DCW [id number]) Physical Therapy Assessment Impairments Impairments Activity Tolerance,Balance, Edema,Functional Activities, Functional Mobility,Gait,Pain, ROM,Soft Tissue Mobility, Strength,Tone Goals Three Impairment Pt scores a 13.38 on TUG Vehicle Check In Clerk Goal (LTG) Pt to decrease TUG score to at least 10 without an assistive device in order to show decreased falls risk and improved functional gait LTG Duration 11/25/21 Two Impairment Left knee ROM restricted to 24 -85? Long-Term Goal (LTG) Left knee ROM to improve to 0- 120? to increase functional mobility LTG Duration 11/25/21 One Impairment Pt does not have an appropriate home exercise program Short Term Goal (STG) Pt to be independent and compliant with an appropriate HEP STG Duration 09/26/21 Assessment Summary Assessment Improving knee ROM, flexion both passively and actively to 105?, AROM extension at 4? Physical Therapy Plan Frequency and Duration Frequency of Treatment 2x/Week Duration of Treatment 90 days Plan of Care Start Date 08/27/21 Plan of Care End Date 11/25/21 Therapeutic Interventions Therapeutic Interventions Aquatic Therapy,Balance Training,Gait Training,Home Exercise Program,Joint Mobilizations,Manual Therapy, Neuromuscular Re-education, Patient/Caregiver Education, Self-Care/Home Management,Soft Tissue Mobilization, Therapeutic Activities, Therapeutic Exercises Modalities Cold Pack/Ice Massage,Electric Stimulation,Hot Packs, Ultrasound Next Visit Focus/Plan Next Note Type Treatment Note Next Visit Plan ROM, strengthening, gait training
--- NOTE | 2021-10-06 10:30 | PT.OTN ---
Current Diagnoses Unilateral primary osteoarthritis, left knee (10/06/21) Effusion, left knee (10/06/21) Other abnormalities of gait and mobility (10/06/21) Presence of left artificial knee joint (10/06/21) Physical Therapy Treatment Note PT-OP-A Visit Information Start: 08/27/21 10:20 Freq: Status: Active Protocol: Document 10/06/21 09:45 DCW (Rec: 10/06/21 10:30 DCW [id number]) Out-Patient Physical Therapy Visit Information Visit Information Visit Type Treatment Note Visit Start Time 09:45 Visit Stop Time 10:35 Total Visit Minutes 50 Visit Number 9 Number of MONITOR WORKER Visits 0 Evaluation Information Evaluation Date 08/27/21 PT-OP-B Current Condition Start: 08/27/21 10:20 Freq: Status: Active Protocol: Document 08/27/21 09:45 DCW (Rec: 08/27/21 10:26 DCW [id number]) Current Condition History of Current Condition Onset Date 08/21/21 Current Complaints Left TKA History of Current Condition Pt is a 75 year old male presenting to skilled therapy six days s/p left TKA. Pt is additionally one year s/p R TKA. Pt feels his recovery is going well, he had been working hard pre-op with LE strengthening exercises. Does note he is still having moderate left knee pain, which has limited his sleep. Pt ambulates with a FWW at this time, does have a SPC available. Also notes that following discharge from outpatient PT for his right TKA, he obtained trekking poles and has been using those a lot prior to this most recent TKA. Pt notes increased LE edema and bruising in his left LE. Prior Treatments and Tests R TKA August 2020 PT-OP-C Subjective Start: 08/27/21 10:20 Freq: Status: Active Protocol: Document 10/06/21 09:45 DCW (Rec: 10/06/21 10:30 DCW [id number]) OP-PT Subjective Patient Comments Patient Comments I'm not really using the stick anymore. I keep it in my room for when I'm really sore , but otherwise I don't. PT-OP-E Functional Tests Start: 08/27/21 10:20 Freq: Status: Active Protocol: Document 08/27/21 09:45 DCW (Rec: 08/27/21 10:29 DCW [id number]) Functional Tests 6 Minute Walk Test Distance 759' Device Used FWW Comments 2.11 ft/sec Timed Up and Go (TUG) Score 13.38 /c FWW Comments 3-trial average (13.94, 13.08 , 13.12) TUG Impairment Rating 20 to <40% Impaired (Score 12- 13) PT-OP-K Range of Motion Start: 08/27/21 10:20 Freq: Status: Active Protocol: Document 08/27/21 09:45 DCW (Rec: 08/27/21 10:29 DCW [id number]) Knee Goniometric Range of Motion Knee Right Patient Position Sitting Flexion Active (degrees) 118 Extension Active (degrees) 2 Left Knee ROM WFL No Patient Position Sitting Flexion Active (degrees) 85 Extension Active (degrees) 24 PT-OP-M Strength Start: 08/27/21 10:20 Freq: Status: Active Protocol: Document 08/27/21 09:45 DCW (Rec: 08/27/21 12:02 DCW [id number]) Knee Strength Knee Manual Muscle Testing Right Flexion (S2) 5 Normal Extension (L3) 5 Normal Left Flexion (S2) 4+ Good+ Extension (L3) 3- Fair- PT-OP-Q Treatments Start: 08/27/21 10:20 Freq: Status: Active Protocol: Document 10/06/21 09:45 DCW (Rec: 10/06/21 10:30 DCW [id number]) Cardio Equipment Recumbent Bicycle Duration (Minutes) 6 Resistance 6 Seat Position 1 Gym Equipment Shuttle Recovery Bilateral Squats Resistance 100# Shuttle Recovery Platform Stable Reps/Time Hold at end-range flexion 2-3 seconds Shuttle Balance Red Details WBOS, Staggered Therapeutic Exercises Sitting Exercises Hamstring Curls Sitting Exercise Name HS Curls Side bilateral Resistance Lv 3 LAQ Sitting Exercise Name LAQ Side bilateral Resistance 5# Standing Exercises Hip Abduction Standing Exercise Name Abd Side bilateral Resistance Red Hip Extension Standing Exercise Name Ext Side bilateral Resistance Red Manual Therapy Treatment Soft Tissue Mobilization Scar mobs Body Location L TKA scar Mobilization Type Cross-Friction,Other Intensity/Depth Superficial Body Position Supine Joint Mobilizations Patellofemoral Joint Patellofemoral Grade III Body Position Supine Tib-Fib Joint L Tib-Fib Direction P->A Grade III Body Position Hooklying PT-OP-R Modalities Start: 08/31/21 10:30 Freq: Status: Active Protocol: Document 10/06/21 09:45 DCW (Rec: 10/06/21 10:30 DCW [id number]) Hot Pack/Cold Pack Treatment R knee Location Left knee Patient Position Hooklying PT-OP-T Assessment and Plan Start: 08/27/21 10:20 Freq: Status: Active Protocol: Document 10/06/21 09:45 DCW (Rec: 10/06/21 10:30 DCW [id number]) Physical Therapy Assessment Impairments Impairments Activity Tolerance,Balance, Edema,Functional Activities, Functional Mobility,Gait,Pain, ROM,Soft Tissue Mobility, Strength,Tone Goals Three Impairment Pt scores a 13.38 on TUG Residential Goal (LTG) Pt to decrease TUG score to at least 10 without an assistive device in order to show decreased falls risk and improved functional gait LTG Duration 11/25/21 Two Impairment Left knee ROM restricted to 24 -85? Steel Estimator Goal (LTG) Left knee ROM to improve to 0- 120? to increase functional mobility LTG Duration 11/25/21 One Impairment Pt does not have an appropriate home exercise program Short Term Goal (STG) Pt to be independent and compliant with an appropriate HEP STG Duration 09/26/21 Assessment Summary Assessment Pt gait, stability, and mobility all improving as expected. Pt making great progress post-op, 10th visit reassessment next visit. Physical Therapy Plan Frequency and Duration Frequency of Treatment 2x/Week Duration of Treatment 90 days Plan of Care Start Date 08/27/21 Plan of Care End Date 11/25/21 Therapeutic Interventions Therapeutic Interventions Aquatic Therapy,Balance Training,Gait Training,Home Exercise Program,Joint Mobilizations,Manual Therapy, Neuromuscular Re-education, Patient/Caregiver Education, Self-Care/Home Management,Soft Tissue Mobilization, Therapeutic Activities, Therapeutic Exercises Modalities Cold Pack/Ice Massage,Electric Stimulation,Hot Packs, Ultrasound Next Visit Focus/Plan Next Note Type Progress Note Next Visit Plan 10th visit
--- NOTE | 2021-10-08 10:29 | PT.OTN ---
Current Diagnoses Unilateral primary osteoarthritis, left knee (10/08/21) Effusion, left knee (10/08/21) Other abnormalities of gait and mobility (10/08/21) Presence of left artificial knee joint (10/08/21) Physical Therapy Treatment Note PT-OP-A Visit Information Start: 08/27/21 10:20 Freq: Status: Active Protocol: Document 10/08/21 09:45 DCW (Rec: 10/08/21 10:29 DCW [id number]) Out-Patient Physical Therapy Visit Information Visit Information Visit Type Treatment Note Visit Start Time 09:45 Visit Stop Time 10:35 Total Visit Minutes 50 Visit Number 10 Number of SET UP / OPERATOR Visits 0 Evaluation Information Evaluation Date 08/27/21 PT-OP-B Current Condition Start: 08/27/21 10:20 Freq: Status: Active Protocol: Document 08/27/21 09:45 DCW (Rec: 08/27/21 10:26 DCW [id number]) Current Condition History of Current Condition Onset Date 08/21/21 Current Complaints Left TKA History of Current Condition Pt is a 75 year old male presenting to skilled therapy six days s/p left TKA. Pt is additionally one year s/p R TKA. Pt feels his recovery is going well, he had been working hard pre-op with LE strengthening exercises. Does note he is still having moderate left knee pain, which has limited his sleep. Pt ambulates with a FWW at this time, does have a SPC available. Also notes that following discharge from outpatient PT for his right TKA, he obtained trekking poles and has been using those a lot prior to this most recent TKA. Pt notes increased LE edema and bruising in his left LE. Prior Treatments and Tests R TKA August 2020 PT-OP-C Subjective Start: 08/27/21 10:20 Freq: Status: Active Protocol: Document 10/08/21 09:45 DCW (Rec: 10/08/21 10:29 DCW [id number]) OP-PT Subjective Patient Comments Patient Comments Pt reports he is feeling like he is progressing well. PT-OP-E Functional Tests Start: 08/27/21 10:20 Freq: Status: Active Protocol: Document 08/27/21 09:45 DCW (Rec: 08/27/21 10:29 DCW [id number]) Functional Tests 6 Minute Walk Test Distance 759' Device Used FWW Comments 2.11 ft/sec Timed Up and Go (TUG) Score 13.38 /c FWW Comments 3-trial average (13.94, 13.08 , 13.12) TUG Impairment Rating 20 to <40% Impaired (Score 12- 13) PT-OP-K Range of Motion Start: 08/27/21 10:20 Freq: Status: Active Protocol: Document 08/27/21 09:45 DCW (Rec: 08/27/21 10:29 DCW [id number]) Knee Goniometric Range of Motion Knee Right Patient Position Sitting Flexion Active (degrees) 118 Extension Active (degrees) 2 Left Knee ROM WFL No Patient Position Sitting Flexion Active (degrees) 85 Extension Active (degrees) 24 PT-OP-M Strength Start: 08/27/21 10:20 Freq: Status: Active Protocol: Document 08/27/21 09:45 DCW (Rec: 08/27/21 12:02 DCW [id number]) Knee Strength Knee Manual Muscle Testing Right Flexion (S2) 5 Normal Extension (L3) 5 Normal Left Flexion (S2) 4+ Good+ Extension (L3) 3- Fair- PT-OP-Q Treatments Start: 08/27/21 10:20 Freq: Status: Active Protocol: Document 10/08/21 09:45 DCW (Rec: 10/08/21 10:29 DCW [id number]) Cardio Equipment Recumbent Bicycle Duration (Minutes) 6 Resistance 6 Seat Position 1 Gym Equipment Shuttle Recovery Bilateral Squats Resistance 100# Shuttle Recovery Platform Stable Reps/Time Hold at end-range flexion 2-3 seconds Shuttle Balance Red Details WBOS, Staggered Therapeutic Exercises Supine Exercises Flexion stretch Supine Exercise Name Manual flexion stretch SLR Supine Exercise Name SLR Side bilateral Resistance 5# Standing Exercises Wall Squats Standing Exercise Name Wall Squats Hip Abduction Standing Exercise Name Abd Side bilateral Resistance Green Hip Extension Standing Exercise Name Ext Side bilateral Resistance Green Manual Therapy Treatment Joint Mobilizations Patellofemoral Joint Patellofemoral Grade III Body Position Supine Tib-Fib Joint L Tib-Fib Direction P->A Grade III Body Position Hooklying PT-OP-R Modalities Start: 08/31/21 10:30 Freq: Status: Active Protocol: Document 10/08/21 09:45 DCW (Rec: 10/08/21 10:29 DCW [id number]) Hot Pack/Cold Pack Treatment R knee Location Left knee Patient Position Hooklying PT-OP-T Assessment and Plan Start: 08/27/21 10:20 Freq: Status: Active Protocol: Document 10/08/21 09:45 DCW (Rec: 10/08/21 10:29 [facility] [id number]) Physical Therapy Assessment Impairments Impairments Activity Tolerance,Balance, Edema,Functional Activities, Functional Mobility,Gait,Pain, ROM,Soft Tissue Mobility, Strength,Tone Goals Three Impairment Pt scores a 13.38 on TUG Agent Licensing Clerk Goal (LTG) Pt to decrease TUG score to at least 10 without an assistive device in order to show decreased falls risk and improved functional gait LTG Duration 11/25/21 Two Impairment Left knee ROM restricted to 24 -85? Penitentiary Goal (LTG) Left knee ROM to improve to 0- 120? to increase functional mobility LTG Duration 11/25/21 One Impairment Pt does not have an appropriate home exercise program Short Term Goal (STG) Pt to be independent and compliant with an appropriate HEP STG Duration 09/26/21 Assessment Summary Assessment Pt doing well, improving quad strength, minimal extension lag, tolerated addition of wall squats well. Passive flexion to 110? today. Physical Therapy Plan Frequency and Duration Frequency of Treatment 2x/Week Duration of Treatment 90 days Plan of Care Start Date 08/27/21 Plan of Care End Date 11/25/21 Therapeutic Interventions Therapeutic Interventions Aquatic Therapy,Balance Training,Gait Training,Home Exercise Program,Joint Mobilizations,Manual Therapy, Neuromuscular Re-education, Patient/Caregiver Education, Self-Care/Home Management,Soft Tissue Mobilization, Therapeutic Activities, Therapeutic Exercises Modalities Cold Pack/Ice Massage,Electric Stimulation,Hot Packs, Ultrasound Next Visit Focus/Plan Next Note Type Treatment Note Next Visit Plan ROM, strengthening, gait training
--- NOTE | 2021-10-12 10:28 | PT.OTN ---
Current Diagnoses Unilateral primary osteoarthritis, left knee (10/12/21) Effusion, left knee (10/12/21) Other abnormalities of gait and mobility (10/12/21) Presence of left artificial knee joint (10/12/21) Physical Therapy Treatment Note PT-OP-A Visit Information Start: 08/27/21 10:20 Freq: Status: Active Protocol: Document 10/12/21 09:45 DCW (Rec: 10/12/21 10:28 DCW [id number]) Out-Patient Physical Therapy Visit Information Visit Information Visit Type Treatment Note Visit Start Time 09:45 Visit Stop Time 10:35 Total Visit Minutes 50 Visit Number 11 Number of HAIR BLENDER Visits 0 Evaluation Information Evaluation Date 08/27/21 PT-OP-B Current Condition Start: 08/27/21 10:20 Freq: Status: Active Protocol: Document 08/27/21 09:45 DCW (Rec: 08/27/21 10:26 DCW [id number]) Current Condition History of Current Condition Onset Date 08/21/21 Current Complaints Left TKA History of Current Condition Pt is a 75 year old male presenting to skilled therapy six days s/p left TKA. Pt is additionally one year s/p R TKA. Pt feels his recovery is going well, he had been working hard pre-op with LE strengthening exercises. Does note he is still having moderate left knee pain, which has limited his sleep. Pt ambulates with a FWW at this time, does have a SPC available. Also notes that following discharge from outpatient PT for his right TKA, he obtained trekking poles and has been using those a lot prior to this most recent TKA. Pt notes increased LE edema and bruising in his left LE. Prior Treatments and Tests R TKA August 2020 PT-OP-C Subjective Start: 08/27/21 10:20 Freq: Status: Active Protocol: Document 10/12/21 09:45 DCW (Rec: 10/12/21 10:28 DCW [id number]) OP-PT Subjective Patient Comments Patient Comments It's a little achy today. PT-OP-E Functional Tests Start: 08/27/21 10:20 Freq: Status: Active Protocol: Document 08/27/21 09:45 DCW (Rec: 08/27/21 10:29 DCW [id number]) Functional Tests 6 Minute Walk Test Distance 759' Device Used FWW Comments 2.11 ft/sec Timed Up and Go (TUG) Score 13.38 /c FWW Comments 3-trial average (13.94, 13.08 , 13.12) TUG Impairment Rating 20 to <40% Impaired (Score 12- 13) PT-OP-K Range of Motion Start: 08/27/21 10:20 Freq: Status: Active Protocol: Document 08/27/21 09:45 DCW (Rec: 08/27/21 10:29 DCW [id number]) Knee Goniometric Range of Motion Knee Right Patient Position Sitting Flexion Active (degrees) 118 Extension Active (degrees) 2 Left Knee ROM WFL No Patient Position Sitting Flexion Active (degrees) 85 Extension Active (degrees) 24 PT-OP-M Strength Start: 08/27/21 10:20 Freq: Status: Active Protocol: Document 08/27/21 09:45 DCW (Rec: 08/27/21 12:02 DCW [id number]) Knee Strength Knee Manual Muscle Testing Right Flexion (S2) 5 Normal Extension (L3) 5 Normal Left Flexion (S2) 4+ Good+ Extension (L3) 3- Fair- PT-OP-Q Treatments Start: 08/27/21 10:20 Freq: Status: Active Protocol: Document 10/12/21 09:45 DCW (Rec: 10/12/21 10:28 DCW [id number]) Cardio Equipment Recumbent Bicycle Duration (Minutes) 6 Resistance 6 Seat Position 1 Gym Equipment Shuttle Recovery Bilateral Squats Resistance 100# Shuttle Recovery Platform Stable Reps/Time Hold at end-range flexion 2-3 seconds Shuttle Balance Red Details WBOS, Staggered Therapeutic Exercises Supine Exercises Flexion stretch Supine Exercise Name Manual flexion stretch SLR Supine Exercise Name SLR Side bilateral Resistance 5# Sitting Exercises Hamstring Curls Sitting Exercise Name HS Curls Side bilateral Resistance Lv 3 LAQ Sitting Exercise Name LAQ Side bilateral Resistance 5# Standing Exercises Hip Abduction Standing Exercise Name Abd Side bilateral Resistance Green Hip Extension Standing Exercise Name Ext Side bilateral Resistance Green Manual Therapy Treatment Joint Mobilizations Patellofemoral Joint Patellofemoral Grade III Body Position Supine Tib-Fib Joint L Tib-Fib Direction P->A Grade III Body Position Hooklying PT-OP-R Modalities Start: 08/31/21 10:30 Freq: Status: Active Protocol: Document 10/12/21 09:45 DCW (Rec: 10/12/21 10:28 DCW [id number]) Electric Stimulation Electric Stimulation Interferential Current (IFC) Body Location L knee Duration (Minutes) 15 Patient Position Hooklying Combined With Heat/Cold Cold Pack PT-OP-T Assessment and Plan Start: 08/27/21 10:20 Freq: Status: Active Protocol: Document 10/12/21 09:45 DCW (Rec: 10/12/21 10:28 DCW [id number]) Physical Therapy Assessment Impairments Impairments Activity Tolerance,Balance, Edema,Functional Activities, Functional Mobility,Gait,Pain, ROM,Soft Tissue Mobility, Strength,Tone Goals Three Impairment Pt scores a 13.38 on TUG Jail Goal (LTG) Pt to decrease TUG score to at least 10 without an assistive device in order to show decreased falls risk and improved functional gait LTG Duration 11/25/21 Two Impairment Left knee ROM restricted to 24 -85? Mainstreaming Facilitator Goal (LTG) Left knee ROM to improve to 0- 120? to increase functional mobility LTG Duration 11/25/21 One Impairment Pt does not have an appropriate home exercise program Short Term Goal (STG) Pt to be independent and compliant with an appropriate HEP STG Duration 09/26/21 Assessment Summary Assessment Gait and ROM continue to improve, pt happy with current level of function, feels appropriate for discharge following his last scheduled visit later this week. Physical Therapy Plan Frequency and Duration Frequency of Treatment 2x/Week Duration of Treatment 90 days Plan of Care Start Date 08/27/21 Plan of Care End Date 11/25/21 Therapeutic Interventions Therapeutic Interventions Aquatic Therapy,Balance Training,Gait Training,Home Exercise Program,Joint Mobilizations,Manual Therapy, Neuromuscular Re-education, Patient/Caregiver Education, Self-Care/Home Management,Soft Tissue Mobilization, Therapeutic Activities, Therapeutic Exercises Modalities Cold Pack/Ice Massage,Electric Stimulation,Hot Packs, Ultrasound Next Visit Focus/Plan Next Note Type Treatment Note Next Visit Plan ROM, strengthening, gait training
--- NOTE | 2021-10-15 10:18 | PT.OTN ---
Current Diagnoses Unilateral primary osteoarthritis, left knee (10/15/21) Effusion, left knee (10/15/21) Other abnormalities of gait and mobility (10/15/21) Presence of left artificial knee joint (10/15/21) Physical Therapy Treatment Note PT-OP-A Visit Information Start: 08/27/21 10:20 Freq: Status: Active Protocol: Document 10/15/21 09:45 DCW (Rec: 10/15/21 10:15 DCW [id number]) Out-Patient Physical Therapy Visit Information Visit Information Visit Type Discharge Summary Visit Start Time 09:45 Visit Stop Time 10:13 Total Visit Minutes 28 Visit Number 12 Number of SCALP TREATMENT OPERATOR Visits 0 Evaluation Information Evaluation Date 08/27/21 PT-OP-B Current Condition Start: 08/27/21 10:20 Freq: Status: Active Protocol: Document 08/27/21 09:45 DCW (Rec: 08/27/21 10:26 DCW [id number]) Current Condition History of Current Condition Onset Date 08/21/21 Current Complaints Left TKA History of Current Condition Pt is a 75 year old male presenting to skilled therapy six days s/p left TKA. Pt is additionally one year s/p R TKA. Pt feels his recovery is going well, he had been working hard pre-op with LE strengthening exercises. Does note he is still having moderate left knee pain, which has limited his sleep. Pt ambulates with a FWW at this time, does have a SPC available. Also notes that following discharge from outpatient PT for his right TKA, he obtained trekking poles and has been using those a lot prior to this most recent TKA. Pt notes increased LE edema and bruising in his left LE. Prior Treatments and Tests R TKA August 2020 PT-OP-C Subjective Start: 08/27/21 10:20 Freq: Status: Active Protocol: Document 10/15/21 09:45 DCW (Rec: 10/15/21 10:15 DCW [id number]) OP-PT Subjective Patient Comments Patient Comments Pt notes everything is feeling pretty good, feels comfortable with today being his last visit. PT-OP-E Functional Tests Start: 08/27/21 10:20 Freq: Status: Active Protocol: Document 10/15/21 09:45 DCW (Rec: 10/15/21 10:18 DCW [id number]) Functional Tests 6 Minute Walk Test Distance 1144 Device Used None Comments 3.18 ft/sec Timed Up and Go (TUG) Score 9.72 Comments 3-trial average (10.23, 9.66 , 9.26) TUG Impairment Rating 0% Impaired (Score 10) PT-OP-K Range of Motion Start: 08/27/21 10:20 Freq: Status: Active Protocol: Document 10/15/21 09:45 DCW (Rec: 10/15/21 10:18 DCW [id number]) Knee Goniometric Range of Motion Knee Right Patient Position Sitting Flexion Active (degrees) 118 Extension Active (degrees) 2 Left Knee ROM WFL Yes Patient Position Sitting Flexion Active (degrees) 118 Extension Active (degrees) 0 PT-OP-M Strength Start: 08/27/21 10:20 Freq: Status: Active Protocol: Document 10/15/21 09:45 DCW (Rec: 10/15/21 10:18 DCW [id number]) Knee Strength Knee Manual Muscle Testing Right Flexion (S2) 5 Normal Extension (L3) 5 Normal Left Flexion (S2) 5 Normal Extension (L3) 5 Normal PT-OP-Q Treatments Start: 08/27/21 10:20 Freq: Status: Active Protocol: Document 10/15/21 09:45 DCW (Rec: 10/15/21 10:15 DCW [id number]) Cardio Equipment Recumbent Bicycle Duration (Minutes) 6 Resistance 6 Seat Position 1 Neuro Re-Education Treatment Other Activities Testing Details 6MWT, TUG, ROM, MMT PT-OP-R Modalities Start: 08/31/21 10:30 Freq: Status: Active Protocol: Document 10/12/21 09:45 DCW (Rec: 10/12/21 10:28 DCW [id number]) Electric Stimulation Electric Stimulation Interferential Current (IFC) Body Location L knee Duration (Minutes) 15 Patient Position Hooklying Combined With Heat/Cold Cold Pack PT-OP-T Assessment and Plan Start: 08/27/21 10:20 Freq: Status: Active Protocol: Document 10/15/21 09:45 DCW (Rec: 10/15/21 10:15 DCW [id number]) Physical Therapy Assessment Impairments Impairments Activity Tolerance,Balance, Edema,Functional Activities, Functional Mobility,Gait,Pain, ROM,Soft Tissue Mobility, Strength,Tone Goals Three Impairment Pt scores a 13.38 on TUG Prison Goal (LTG) Pt to decrease TUG score to at least 10 without an assistive device in order to show decreased falls risk and improved functional gait LTG Duration Met Two Impairment Left knee ROM restricted to 24 -85? Rn Appeals Goal (LTG) Left knee ROM to improve to 0- 120? to increase functional mobility LTG Duration 11/25/21 - Improving (0-118? ) One Impairment Pt does not have an appropriate home exercise program Short Term Goal (STG) Pt to be independent and compliant with an appropriate HEP STG Duration Met Progress Towards Goals Progress Towards Goals Goals Met Assessment Summary Assessment Pt has met all goals since initial evaluation. Is doing very well, will continue to improve while performing independent HEP. Pt is appropriate for discharge at this time. Physical Therapy Plan Frequency and Duration Frequency of Treatment 2x/Week Duration of Treatment 90 days Plan of Care Start Date 08/27/21 Plan of Care End Date 11/25/21 Therapeutic Interventions Therapeutic Interventions Aquatic Therapy,Balance Training,Gait Training,Home Exercise Program,Joint Mobilizations,Manual Therapy, Neuromuscular Re-education, Patient/Caregiver Education, Self-Care/Home Management,Soft Tissue Mobilization, Therapeutic Activities, Therapeutic Exercises Modalities Cold Pack/Ice Massage,Electric Stimulation,Hot Packs, Ultrasound Discharge Physical Therapy Discharge Reasons Goals Met Next Visit Focus/Plan Next Note Type Discharge Summary
== END 2021-10-22 14:17 ==
LOC: PHYS 09:45
PROVIDERS: Family Provider Student in an Organized Health Care Education/Training Program; PCP Student in an Organized Health Care Education/Training Program; Referring Provider Orthopaedic Surgery; Visit Provider Orthopaedic Surgery
DX: M17.12 Unilateral primary osteoarthritis, left knee (principal); Z96.652 Presence of left artificial knee joint; R26.89 Other abnormalities of gait and mobility; M25.462 Effusion, left knee
CPT/HCPCS: 97014; 97110; 97112; 97140; 97161; G0283

== ENCOUNTER → 2022-02-02 16:07 | Outpatient (CLI) | payer OTHER, SELFPAY ==
[2021-08-21 11:10] VITALS: BMI 33.6
--- NOTE | 2022-02-02 | DI.MRI.S_ITS ---
PROCEDURE: MR ANGIO HEAD WO CON INDICATIONS: UNSPECIFIED INJURY OF HEAD TECHNIQUE: Noncontrast axial 3-D [id number] MR angiogram, with 3-dimensional maximum intensity projection (MIP) reformats of the internal carotid arteries and posterior circulation then performed. COMPARISON: [facility], , MR HEAD/BRAIN WO CON, 02/02/2022, 16:40. FINDINGS: Image quality: Excellent. Anterior circulation: Intracranial internal carotid arteries demonstrate normal size and intraluminal flow signal. The flow within the paired anterior cerebral arteries is normal and symmetric. The flow within the middle cerebral arteries is normal and symmetric. The anterior communicating artery is seen. No stenoses, occlusions, or aneurysms. Posterior circulation: No flow seen within the left vertebral artery. The distal right vertebral artery is within normal limits. There is a normal appearing basilar artery. The flow within the posterior cerebral arteries is normal and symmetric. No stenoses, occlusions, or aneurysms. IMPRESSION: There is no flow seen within the left vertebral artery. Please consider a follow-up neck CT angiogram for further evaluation. Dictated by: Bebeto Deshpande M.D. on 02/02/2022 at 16:39 Approved by: Bebeto Deshpande M.D. on 02/02/2022 at 16:40
--- NOTE | 2022-02-02 | DI.MRI.S_ITS ---
PROCEDURE: MR HEAD/BRAIN WO CON INDICATIONS: UNSPECIFIED INJURY OF HEAD TECHNIQUE: Non-contrast axial T1 spin echo, axial T2 fast spin echo, sagittal and axial FLAIR, coronal T2 fast spin echo, axial gradient echo, axial diffusion and ADC through the brain. COMPARISON: [facility], MR, MR ANGIO HEAD WO CON, 02/02/2022, 16:40. FINDINGS: Image quality: Excellent. CSF spaces: Ventricles appear symmetric in size and shape. Basal cisterns are patent. No extra-axial fluid collections. Brain: No intracranial bleeds or mass effects. There is cerebral volume loss for age. There are periventricular and deep white matter chronic small vessel ischemic changes. Brainstem appears normal. Diffusion-weighted images show no acute ischemic insults. No chronic ischemic insults. Normal intravascular flow voids are present. Skull and face: Calvarial bone marrow is normal in signal. Orbits are normal. Sinuses: Sinuses and mastoids are clear. Note is made of moderate leftward nasal septal deviation. IMPRESSION: No acute abnormality is seen. No findings of acute or subacute infarction can be seen. Additional findings: Brain parenchymal volume loss Chronic small vessel ischemic change Moderate leftward nasal septal deviation Dictated by: Bebeto Deshpande M.D. on 02/02/2022 at 16:40 Approved by: Bebeto Deshpande M.D. on 02/02/2022 at 16:41
== END ==
PROVIDERS: Family Provider Student in an Organized Health Care Education/Training Program; PCP Student in an Organized Health Care Education/Training Program; Referring Provider Physician Assistant; Visit Provider Physician Assistant
DX: S09.90XA Unspecified injury of head, initial encounter (principal); R51.9 Headache, unspecified; J34.2 Deviated nasal septum; X58.XXXA Exposure to other specified factors, initial encounter
CPT/HCPCS: 70544; 70551

== ENCOUNTER → 2022-06-29 08:54 | Outpatient (CLI) | payer OTHER, SELFPAY ==
[2021-08-21 11:10] VITALS: BMI 33.6
--- NOTE | 2022-06-29 | DI.RAD.S_ITS ---
PROCEDURE: XR CERVICAL SPINE 2V OR 3V INDICATIONS: neck pain, acute nonintractable headache TECHNIQUE: 3 view(s) of the cervical spine were acquired. COMPARISON: None. FINDINGS: Bones: No fractures or dislocations to the T1 level. The lateral masses of C1 appear intact on the odontoid view. No suspicious bony lesions. Disc space narrowing facet arthropathy noted throughout the cervical spine particularly in the lower cervical spine. Bone mineralization and craniovertebral relationships are normal. Soft tissues: No prevertebral soft tissue swelling. IMPRESSION: Multilevel degenerative disc disease and arthropathy particularly in the lower lumbar spine Approved by: Makr Milan M.D. on 06/29/2022 at 9:41
== END ==
PROVIDERS: Family Provider Student in an Organized Health Care Education/Training Program; PCP Student in an Organized Health Care Education/Training Program; Referring Provider Student in an Organized Health Care Education/Training Program; Visit Provider Student in an Organized Health Care Education/Training Program
DX: M47.812 Spondylosis without myelopathy or radiculopathy, cervical region (principal); M50.320 Other cervical disc degeneration, mid-cervical region, unspecified level; R51.9 Headache, unspecified
CPT/HCPCS: 72040

== ENCOUNTER 2022-08-09 14:00 | Outpatient (RCR) | payer OTHER, SELFPAY ==
[2021-08-21 11:10] VITALS: BMI 33.6
--- NOTE | 2022-07-29 11:00 | PT.OIE ---
Current Diagnoses Cervicalgia (07/29/22) Past Medical History (Last Reviewed 08/22/21 @ 11:50 by Elo Mullins PA-C) Anemia Chronic constipation COUCH (dyspnea on exertion) GERD (gastroesophageal reflux disease) Hoarseness HTN (hypertension) Osteoarthritis PSVT (paroxysmal supraventricular tachycardia) RBBB (right bundle branch block) Past Surgical History (Last Reviewed 08/22/21 @ 11:50 by Elo Mullins PA-C) History of arthroplasty of right knee (08/06/20) History of arthroscopy of right knee History of colonoscopy History of esophagogastroduodenoscopy (EGD) Visit Care Team Role Provider Type Raquel Blanton PA-C Attending Provider Physician Plating Foreman Family Provider Primary Care Provider Referring Provider Specialty: Medical Address: [address] [place] [address], [facility] Email: [email or web address] Physical Therapy Initial Evaluation PT-OP-A Visit Information Start: 07/29/22 17:33 Freq: Status: Active Protocol: Document 07/29/22 10:15 DCW (Rec: 07/29/22 17:41 [facility] [id number]) Out-Patient Physical Therapy Visit Information Visit Information Visit Type Initial Evaluation Visit Start Time 10:15 Visit Stop Time 11:00 Total Visit Minutes 45 Visit Number 1 Number of CAM SPECIALIST Visits 0 Evaluation Information Evaluation Date 07/29/22 PT-OP-B Current Condition Start: 07/29/22 17:33 Freq: Status: Active Protocol: Document 07/29/22 10:15 DCW (Rec: 07/29/22 17:41 [facility] [id number]) Current Condition History of Current Condition Onset Date Approximately one month history Current Complaints Prior neck pain History of Current Condition Pt is a 76 year old male presenting with complaints of neck pain that began one month ago, but admits that pain largely has gone away by now. Notes that 2-3 months ago, he hit his head getting into his vehicle, and had a bad headache for ~1 month, and then notes it went away for a month, and then his neck began hurting. He is unsure if these things are related, but he can't remember doing anything else to his neck. Pt reports he frequently has to drive to [place], and when his neck was bothering him, this was the worst thing he could do. Still feels like his neck is a little tighter than usual, but overall no longer really symptomatic Treatment Goals Patient/Caregiver Goals Make sure the pain doesn't come back next time I have to drive to [place]. PT-OP-C Subjective Start: 07/29/22 17:33 Freq: Status: Active Protocol: Document 07/29/22 10:15 DCW (Rec: 07/29/22 17:41 DCW [id number]) OP-PT Subjective Patient Comments Patient Comments It's hard to say if I need this, it doesn't really hurt that much anymore. It was mainly on the left side. Patient Questionnaires Neck Disability Index NDI Score 0/50 = 0% Neck Disability Index Impairment 0% Impaired (Score 0) PT-OP-F Manual Assessment Start: 07/29/22 17:33 Freq: Status: Active Protocol: Document 07/29/22 10:15 DCW (Rec: 07/30/22 08:38 DCW [id number]) Manual Assessments Soft Tissue Assessment Soft Tissue Mobility Assessment Mild-moderate tone R>L cervical paraspinals, upper trap, scalenes PT-OP-K Range of Motion Start: 07/29/22 17:33 Freq: Status: Active Protocol: Document 07/29/22 10:15 DCW (Rec: 07/30/22 08:38 DCW [id number]) Cervical Spine Range of Motion Cervical Spine Active Degrees Testing Position Sitting Flexion 50 Extension 35 Rotation Left 40 Rotation Right 45 Lateral Flexion Left 25 Lateral Flexion Right 35 ROM Limitations Soft Tissue Tightness,Muscle Tone PT-OP-L Special Tests Start: 07/29/22 17:33 Freq: Status: Active Protocol: Document 07/29/22 10:15 DCW (Rec: 07/30/22 08:38 DCW [id number]) Special Tests Cervical Spine Special Tests Traction Test Results Negative Spurling's Test Test Results Negative Slump Test Results Negative Passive Neck Flexion Test Results Negative Foraminal Compression Test Results Negative PT-OP-Q Treatments Start: 07/29/22 17:33 Freq: Status: Active Protocol: Document 07/29/22 10:15 DCW (Rec: 07/29/22 17:41 DCW [id number]) Therapeutic Exercises Sitting Exercises Scalenes Sitting Exercise Name Scalene stretch Side bilateral Comments Lateral flexion /c upward rotation, Lateral flexion /c downward rotation Upper Trap Sitting Exercise Name Upper Trap stretch Side bilateral Comments Lateral cervical flexion with over pressure PT-OP-T Assessment and Plan Start: 07/29/22 17:33 Freq: Status: Active Protocol: Document 07/29/22 10:15 DCW (Rec: 07/30/22 08:38 DCW [id number]) Physical Therapy Assessment Rehab Potential Rehabilitation Potential Excellent Evaluation Complexity Number of Personal Factors/Comorbidities 0 Number of Body Systems Impaired 1-2 Clinical Presentation at Evaluation Stable Impairments Impairments ROM,Soft Tissue Mobility,Tone Goals One Impairment Pt does not have an appropriate home exercise program Short Term Goal (STG) Pt to be independent and compliant with an appropriate HEP STG Duration 08/29/22 Assessment Summary Assessment Pt currently nearly conpletely symptomatic at the time of his initial evaluation. Still exhibiting some mild-moderate muscle tightness with related small decreased ROM, however no longer experiencing continuing pain/discomfort in neck, and no symptoms could be reproduced by testing. Pt notes that when his neck was bothering him, it was the worst when he was making his regular drive to [place], and while he doesn't have any pain right now, he does need to drive down to [place] this weekend, so he's worried that he might be worse afterward. Reviewed and implemented gentle upper trap and scalene stretches for an HEP for pt to perform. Pt agreeable to work on HEP, drive to [place], and make sure his neck continues to feel better. If symptoms return, pt will return for a follow-up at his next scheduled visit, but if everything is still feeling fine, will likely call to cancel and to be discharged. Physical Therapy Plan Frequency and Duration Frequency of Treatment 1x/Week Plan of Care Start Date 07/29/22 Plan of Care End Date 09/09/22 Therapeutic Interventions Therapeutic Interventions Home Exercise Program,Joint Mobilizations,Manual Therapy, Neuromuscular Re-education, Patient/Caregiver Education, Self-Care/Home Management,Soft Tissue Mobilization, Therapeutic Activities, Therapeutic Exercises Modalities Cold Pack/Ice Massage,Hot Packs Next Visit Focus/Plan Next Note Type Treatment Note Next Visit Plan STM, stretching, cervical strengthening
--- NOTE | 2022-07-29 11:00 | PT.OPPOC ---
Physical, Occupational & Speech Therapy At [facility] Current Diagnoses Cervicalgia (07/29/22) Visit Care Team Role Provider Type Raquel Blanton PA-C Attending Provider Physician Shale Miner Blasting Family Provider Primary Care Provider Referring Provider Specialty: Medical Address: [address] [place] [address], [id number] Email: [email or web address] Plan Of Care PT-OP-T Assessment and Plan Start: 07/29/22 17:33 Freq: Status: Active Protocol: Document 07/29/22 10:15 DCW (Rec: 07/30/22 08:38 DCW [id number]) Physical Therapy Assessment Rehab Potential Rehabilitation Potential Excellent Evaluation Complexity Number of Personal Factors/Comorbidities 0 Number of Body Systems Impaired 1-2 Clinical Presentation at Evaluation Stable Impairments Impairments ROM,Soft Tissue Mobility,Tone Goals One Impairment Pt does not have an appropriate home exercise program Short Term Goal (STG) Pt to be independent and compliant with an appropriate HEP STG Duration 08/29/22 Assessment Summary Assessment Pt currently nearly conpletely symptomatic at the time of his initial evaluation. Still exhibiting some mild-moderate muscle tightness with related small decreased ROM, however no longer experiencing continuing pain/discomfort in neck, and no symptoms could be reproduced by testing. Pt notes that when his neck was bothering him, it was the worst when he was making his regular drive to [place], and while he doesn't have any pain right now, he does need to drive down to [place] this weekend, so he's worried that he might be worse afterward. Reviewed and implemented gentle upper trap and scalene stretches for an HEP for pt to perform. Pt agreeable to work on HEP, drive to [place], and make sure his neck continues to feel better. If symptoms return, pt will return for a follow-up at his next scheduled visit, but if everything is still feeling fine, will likely call to cancel and to be discharged. Physical Therapy Plan Frequency and Duration Frequency of Treatment 1x/Week Plan of Care Start Date 07/29/22 Plan of Care End Date 09/09/22 Therapeutic Interventions Therapeutic Interventions Home Exercise Program,Joint Mobilizations,Manual Therapy, Neuromuscular Re-education, Patient/Caregiver Education, Self-Care/Home Management,Soft Tissue Mobilization, Therapeutic Activities, Therapeutic Exercises Modalities Cold Pack/Ice Massage,Hot Packs Next Visit Focus/Plan Next Note Type Treatment Note Next Visit Plan STM, stretching, cervical strengthening Plan of Care Dates Plan of Care Start Date 07/29/22 Plan of Care End Date 09/09/22 Electronically Signed by: Sheldon Huddleston, PT 07/30/22 0839 If you are in agreement with this Plan of Care, please return a signed and dated copy. I have reviewed this Plan of Care and certify that the skilled therapy services above are required to meet the patient?s needs. Physician Signature Date Printed Name and Credentials Clinical Instructor Signature Printed Name and Credentials
--- NOTE | 2022-08-09 14:21 | PT.OTN ---
Current Diagnoses Cervicalgia (08/09/22) Physical Therapy Treatment Note PT-OP-A Visit Information Start: 07/29/22 17:33 Freq: Status: Active Protocol: Document 08/09/22 14:00 DCW (Rec: 08/09/22 14:21 DCW [id number]) Out-Patient Physical Therapy Visit Information Visit Information Visit Type Discharge Summary Visit Start Time 14:00 Visit Stop Time 14:15 Total Visit Minutes 15 Visit Number 2 Number of ROUTER SETTER Visits 0 Evaluation Information Evaluation Date 07/29/22 PT-OP-B Current Condition Start: 07/29/22 17:33 Freq: Status: Active Protocol: Document 07/29/22 10:15 DCW (Rec: 07/29/22 17:41 DCW [id number]) Current Condition History of Current Condition Onset Date Approximately one month history Current Complaints Prior neck pain History of Current Condition Pt is a 76 year old male presenting with complaints of neck pain that began one month ago, but admits that pain largely has gone away by now. Notes that 2-3 months ago, he hit his head getting into his vehicle, and had a bad headache for ~1 month, and then notes it went away for a month, and then his neck began hurting. He is unsure if these things are related, but he can't remember doing anything else to his neck. Pt reports he frequently has to drive to [place], and when his neck was bothering him, this was the worst thing he could do. Still feels like his neck is a little tighter than usual, but overall no longer really symptomatic Treatment Goals Patient/Caregiver Goals Make sure the pain doesn't come back next time I have to drive to [place]. PT-OP-C Subjective Start: 07/29/22 17:33 Freq: Status: Active Protocol: Document 08/09/22 14:00 DCW (Rec: 08/09/22 14:21 DCW [id number]) OP-PT Subjective Patient Comments Patient Comments Pt reports he is feeling good, was able to drive down to [place] without any discomfort. Has been compliant with HEP so far. PT-OP-F Manual Assessment Start: 07/29/22 17:33 Freq: Status: Active Protocol: Document 07/29/22 10:15 DCW (Rec: 07/30/22 08:38 DCW [id number]) Manual Assessments Soft Tissue Assessment Soft Tissue Mobility Assessment Mild-moderate tone R>L cervical paraspinals, upper trap, scalenes PT-OP-K Range of Motion Start: 07/29/22 17:33 Freq: Status: Active Protocol: Document 07/29/22 10:15 DCW (Rec: 07/30/22 08:38 DCW [id number]) Cervical Spine Range of Motion Cervical Spine Active Degrees Testing Position Sitting Flexion 50 Extension 35 Rotation Left 40 Rotation Right 45 Lateral Flexion Left 25 Lateral Flexion Right 35 ROM Limitations Soft Tissue Tightness,Muscle Tone PT-OP-L Special Tests Start: 07/29/22 17:33 Freq: Status: Active Protocol: Document 07/29/22 10:15 DCW (Rec: 07/30/22 08:38 DCW [id number]) Special Tests Cervical Spine Special Tests Traction Test Results Negative Spurling's Test Test Results Negative Slump Test Results Negative Passive Neck Flexion Test Results Negative Foraminal Compression Test Results Negative PT-OP-Q Treatments Start: 07/29/22 17:33 Freq: Status: Active Protocol: Document 08/09/22 14:00 DCW (Rec: 08/09/22 14:21 DCW [id number]) Manual Therapy Treatment Soft Tissue Mobilization SCM Body Location R>L SCM Mobilization Type Strumming,Sustained Pressure Intensity/Depth Moderate Scalenes Body Location R>L Scalenes Mobilization Type Strumming,Sustained Pressure Intensity/Depth Moderate Upper Trap Body Location R>L Upper Trap Mobilization Type Strumming,Sustained Pressure Intensity/Depth Moderate PT-OP-T Assessment and Plan Start: 07/29/22 17:33 Freq: Status: Active Protocol: Document 08/09/22 14:00 DCW (Rec: 08/09/22 14:21 DCW [id number]) Physical Therapy Assessment Impairments Impairments ROM,Soft Tissue Mobility,Tone Goals One Impairment Pt does not have an appropriate home exercise program Short Term Goal (STG) Pt to be independent and compliant with an appropriate HEP STG Duration Met Assessment Summary Assessment Pt continues to be asymptomatic with cervical complaints, has met his own goals of being able to drive down to [place] without pain. Pt unlikely at this time to benefit from any further skilled out-patient therapy. Pt understands that he will need a new referral in order to return for skilled PT in the future. Physical Therapy Plan Frequency and Duration Frequency of Treatment 1x/Week Plan of Care Start Date 07/29/22 Plan of Care End Date 09/09/22 Therapeutic Interventions Therapeutic Interventions Home Exercise Program,Joint Mobilizations,Manual Therapy, Neuromuscular Re-education, Patient/Caregiver Education, Self-Care/Home Management,Soft Tissue Mobilization, Therapeutic Activities, Therapeutic Exercises Modalities Cold Pack/Ice Massage,Hot Packs Discharge Physical Therapy Discharge Reasons Goals Met Next Visit Focus/Plan Next Note Type Discharge Summary
== END 2022-08-10 12:02 | disposition home or self-care (01) ==
LOC: PHYS 14:00
PROVIDERS: Family Provider Student in an Organized Health Care Education/Training Program; PCP Student in an Organized Health Care Education/Training Program; Referring Provider Student in an Organized Health Care Education/Training Program; Visit Provider Student in an Organized Health Care Education/Training Program
DX: M54.2 Cervicalgia (principal)
CPT/HCPCS: 97110; 97140; 97161

== ENCOUNTER 2022-11-23 16:01 | Emergency (ER) | payer OTHER, SELFPAY ==
[2021-08-21 11:10] VITALS: BMI 33.6
[2022-11-23 16:08] VITALS: BP 166/76; PULSE 85; RESP 18; TEMP 37.1; O2SAT 98; BMI 34.5
[2022-11-23] MEDS: ACETAMINOPHEN 325 MG TABLET 975 MG PO (16:23)
[2022-11-23 17:45] VITALS: BP 138/88; PULSE 65; RESP 18; O2SAT 97
--- NOTE | 2022-11-23 17:46 | PC.NURSE ---
Pt reports HERNÁNDEZ x 2-3 days. States it came on gradually, L-side HERNÁNDEZ radiates to L-side neck. Hx HERNÁNDEZ. Denies worst HERNÁNDEZ of life.
--- NOTE | 2022-11-23 17:56 | ED_ITS ---
HPI - Headache <Elissa Burns PA-C - Last Filed: 11/23/22 18:49> General Chief Complaint: Headache Stated Complaint: pain back of head, recent MRI Time Seen by Provider: 11/23/22 17:44 Mode of arrival: Ambulatory History of Present Illness HPI Narrative: 76-year-old male with past medical history hypothyroidism, hyperlipidemia presents to the ED with a left-sided headache for 2 days. Patient describes the pain as going from the back of of the left side of his head down to the left neck. Patient states that he has had this type of headache before. 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 Patient was worked up with MRI and x-rays after that injury with no acute findings. This time around, patient states he took some ibuprofen this morning without any relief. Patient denies nausea, vomiting, fever, chills, vision changes. Related Data Home Medications Medication Instructions Recorded Confirmed lovastatin 20 mg tablet 20 mg PO QAM 07/31/20 08/21/21 omeprazole 20 mg capsule,delayed 20 mg PO DAILY 07/31/20 08/21/21 release Previous Rx's Medication Instructions Recorded levothyroxine 150 mcg tablet 0.15 mg PO QAM #90 tabs 05/30/17 lisinopril 10 mg tablet 10 mg PO Q DAY #90 tabs 05/30/17 acetaminophen 325 mg tablet 650 mg PO TID #60 tabs 08/07/20 docusate sodium 100 mg capsule 100 mg PO BID #20 caps 08/07/20 (DOK) ibuprofen 400 mg tablet 400 mg PO Q4HR #60 tabs 08/07/20 oxycodone 5 mg tablet 5 mg PO Q4HR PRN Moderate to 08/22/21 severe postop pain #40 tabs polyethylene glycol 3350 17 gram 17 g PO DAILY PRN Constipation #30 08/22/21 oral powder packet ea tamsulosin 0.4 mg capsule (Flomax) 0.4 mg PO .At dinnertime #7 caps 08/22/21 Allergies Allergy/AdvReac Type Severity Reaction Status Date / Time No Known Drug Allergies Allergy Verified 08/06/20 09:47 Review of Systems <Elissa Burns PA-C - Last Filed: 11/23/22 18:49> Review of Systems ROS Unobtainable: All systems reviewed & are unremarkable except as noted in HPI and below Constitutional Constitutional: Denies chills, Denies fatigue, Denies fever(s), Denies frequent falls, Reports headache(s), Denies lethargy and Denies weakness Eyes Eyes: Denies change in vision, Denies eye discharge, Denies irritation and Denies loss of vision ENT Ears, Nose, Mouth, and Throat: Denies change in voice, Denies dizziness, Reports headache(s), Denies neck pain, Denies sore throat and Denies throat swelling Cardiovascular Cardiovascular: Denies chest pain, Denies irregular heart rhythm, Denies lightheadedness, Denies palpitations, Denies dyspnea, Denies dyspnea on exertion and Denies orthopnea Respiratory Respiratory: Denies cough, Denies dyspnea, Denies dyspnea on exertion and Denies wheezing Gastrointestinal Gastrointestinal: Denies abdominal pain, Denies change in bowel habits, Denies diarrhea, Denies nausea and Denies vomiting Genitourinary Genitourinary: Denies hematuria, Denies flank pain, Denies urinary incontinence and Denies urinary urgency Musculoskeletal Musculoskeletal: Denies back pain, Denies muscle weakness, Denies neck pain, Denies numbness and Denies tingling Integumentary/Breasts Skin/Breast: Denies pruritus, Denies erythema, Denies rash and Denies wounds Neurologic Neurologic: Denies behavioral changes, Denies confusion, Denies dizziness, Denies frequent falls, Reports headache(s), Denies loss of vision, Denies numbness, Denies tingling and Denies weakness Psychiatric Psychiatric: Denies anxiety, Denies behavioral changes, Denies confusion, Denies depression, Denies homicidal ideation and Denies suicidal ideation Endocrine Endocrine: Denies fatigue, Denies flushing and Denies palpitations Hematologic/Lymphatic Hematologic/Lymphatic: Denies easy bruising Allergic/Immunologic Allergic/Immunologic: Denies urticaria, Denies throat swelling and Denies wheezing Patient History <Elsisa Burns PA-C - Last Filed: 11/23/22 18:49> Medical History Anemia Chronic constipation COUCH (dyspnea on exertion) GERD (gastroesophageal reflux disease) Hoarseness HTN (hypertension) Osteoarthritis PSVT (paroxysmal supraventricular tachycardia) RBBB (right bundle branch block) Surgical History History of arthroplasty of right knee (08/06/20) History of arthroscopy of right knee History of colonoscopy History of esophagogastroduodenoscopy (EGD) Social History household members: spouse and family Smoking Status: Never smoker alcohol intake: former Smoking Status: Never smoker Substance Use Type: does not use Exam <Elissa Burns PA-C - Last Filed: 11/23/22 18:49> Narrative Exam Narrative: Const General:?cooperative, healthy appearing and comfortable [facility] Head:?normal to inspection Ears:?hearing grossly normal bilaterally Nose:?external nose normal Face and sinus:?normal facial exam and sinuses nontender Mouth:?oral mucosae normal Throat:?posterior oropharynx normal Eyes General:?appearance normal, both eyes and all related structures; vision grossly normal Neck Neck:?normal visual inspection and no lymphadenopathy noted; full range of mot ion; no meningeal signs Resp Effort & Inspection:?normal respiratory effort Auscultation:?clear to auscultation bilaterally Cardio Rate:?regular rate Rhythm:?regular rhythm Neuro General:?patient alert, patient awake and patient oriented x3 Initial Vital Signs Initial Vital Signs: Vital Signs Temperature 98.8 F 11/23/22 16:08 Pulse Rate 85 11/23/22 16:08 Respiratory Rate 18 11/23/22 16:08 Blood Pressure 166/76 H 11/23/22 16:08 Pulse Oximetry 98 11/23/22 16:08 Oxygen Delivery Method Room Air 11/23/22 16:08 <Zoe Jang DO - Last Filed: 11/24/22 18:01> Initial Vital Signs Initial Vital Signs: Vital Signs Temperature 98.8 F 11/23/22 16:08 Pulse Rate 85 11/23/22 16:08 Respiratory Rate 18 11/23/22 16:08 Blood Pressure 166/76 H 11/23/22 16:08 Pulse Oximetry 98 11/23/22 16:08 Oxygen Delivery Method Room Air 11/23/22 16:08 Course <Elissa Burns PA-C - Last Filed: 11/23/22 18:49> Orders Ordered: Discontinued Medications Acetaminophen (Acetaminophen 325 Mg Tablet) 975 mg PO NOW ONE Stop: 11/23/22 16:19 Last Admin: 11/23/22 16:23 Dose: 975 mg Documented By: MASOUD Vital Signs Vital signs: Vital Signs - 8 hr 11/23/22 16:08 11/23/22 17:45 Temperature 98.8 F Pulse Rate 85 65 Respiratory Rate 18 18 Blood Pressure 166/76 H 138/88 Pulse Oximetry 98 97 Oxygen Delivery Method Room Air Room Air <Zoe Jang DO - Last Filed: 11/24/22 18:01> Orders Ordered: Discontinued Medications Acetaminophen (Acetaminophen 325 Mg Tablet) 975 mg PO NOW ONE Stop: 11/23/22 16:19 Last Admin: 11/23/22 16:23 Dose: 975 mg Documented By: MASOUD Vital Signs Vital signs: Vital Signs - 8 hr 11/23/22 16:08 11/23/22 17:45 Temperature 98.8 F Pulse Rate 85 65 Respiratory Rate 18 18 Blood Pressure 166/76 H 138/88 Pulse Oximetry 98 97 Oxygen Delivery Method Room Air Room Air MDM - Headache <Elissa Burns PA-C - Last Filed: 11/23/22 18:49> [facility] Narrative Medical decision making narrative: 76-year-old male with past medical history hypothyroidism, hyperlipidemia presents to the ED with a left-sided headache for 2 days. In the ED, patient was given Tylenol which greatly relieved his symptoms. Given that the nature of the headache is similar to his prior headaches, no indication for imaging. It is also reassuring that patient's headache responded well to Tylenol. Recommend that patient take ibuprofen and Tylenol if his headache recurs. Recommend plenty of hydration. Recommend follow-up with PCP. ED return precautions were discussed with patient. Patient verbalized understanding. Medical records reviewed: Yes Discharge Plan Departure Patient Disposition: Home Clinical Impression: Headache Instructions: DI for Headache Activity Restrictions/Additional Instructions: You were evaluated in the ED today for a headache. Your symptoms improved with Tylenol. You may continue to take 1000 mg of Tylenol and 800 mg of ibuprofen 3 times a day when you have a headache. Please continue to stay well hydrated. Please follow-up with your PCP as soon as possible. Return to the ED if you have worsening symptoms, persistent vomiting. Prescriptions: No Action lisinopril 10 MG tablet 10 mg PO Q DAY Qty: 90 0RF levothyroxine 150 MCG tablet 0.15 mg PO QAM Qty: 90 0RF omeprazole 20 mg Capsule,Delayed Release(Dr/Ec) 20 mg PO DAILY lovastatin 20 MG tablet 20 mg PO QAM acetaminophen 325 mg Tablet 650 mg PO TID Qty: 60 0RF docusate sodium [DOK] 100 mg Capsule 100 mg PO BID Qty: 20 0RF ibuprofen 400 mg Tablet 400 mg PO Q4HR Qty: 60 0RF oxycodone 5 mg Tablet 5 mg PO Q4HR PRN (Reason: Moderate to severe postop pain) Qty: 40 0RF polyethylene glycol 3350 17 gram Powder In Packet 17 g PO DAILY PRN (Reason: Constipation) Qty: 30 0RF tamsulosin [Flomax] 0.4 mg Capsule 0.4 mg PO .At dinnertime Qty: 7 0RF Rx Instructions: To help with postop urinary retention Referrals: Raquel Blanton, PAGriffinC [Primary Care Provider] - Stand Alone Forms: Patient Portal/API <Zoe Jang DO - Last Filed: 11/24/22 18:01> Cosign ED Attending Apurva Attestation: I was immediately available in the department for consultation. Documentation has been reviewed.
== END 2022-11-23 17:56 | disposition home or self-care (01) ==
PROVIDERS: Emergency Provider Student in an Organized Health Care Education/Training Program; Family Provider Student in an Organized Health Care Education/Training Program; PCP Student in an Organized Health Care Education/Training Program
DX: R51.9 Headache, unspecified (principal)
CPT/HCPCS: 99282; 99283

== ENCOUNTER → 2022-12-13 08:35 | Outpatient (CLI) | payer OTHER, SELFPAY ==
[2021-08-21 11:10] VITALS: BMI 33.6
--- NOTE | 2022-12-13 08:36 | DI.MRI.S_ITS ---
PROCEDURE: MR ANGIO HEAD WO CON INDICATIONS: OCCLUSION OF LEFT VERTEBRAL ARTERY TECHNIQUE: Noncontrast axial 3-D [id number] MR angiogram, with 3-dimensional maximum intensity projection (MIP) reformats of the internal carotid arteries and posterior circulation then performed. COMPARISON: [facility], MR, MR ANGIO HEAD WO CON, 02/02/2022, 16:40. [facility], MR, MR HEAD/BRAIN WO CON, 02/02/2022, 16:40. [facility], MR, MR HEAD/BRAIN WO CON, 12/13/2022, 8:38. FINDINGS: Image quality: Diagnostic. Anterior circulation: Intracranial internal carotid arteries demonstrate normal size and intraluminal flow signal. The flow within the paired anterior cerebral arteries is normal and symmetric. The flow within the middle cerebral arteries is normal and symmetric. The anterior communicating artery is seen. No stenoses, occlusions, or aneurysms. Posterior circulation: The distal left V4 segment is not seen. There is a small amount of flow seen within the more proximal left V4 segment. The right V4 segment is within normal limits. There is a normal appearing basilar artery seen. IMPRESSION: Nonvisualization of the distal left V4 segment, which is consistent with the given history. No additional significant intracranial arterial abnormality is seen. Dictated by: Bebeto Deshpande M.D. on 12/13/2022 at 11:35 Approved by: Bebeto Deshpande M.D. on 12/13/2022 at 11:36
--- NOTE | 2022-12-13 08:36 | DI.MRI.S_ITS ---
PROCEDURE: MR HEAD/BRAIN WO CON INDICATIONS: OCCLUSION OF LEFT VERTEBRAL ARTERY TECHNIQUE: Non-contrast axial T1 spin echo, axial T2 fast spin echo, sagittal and axial FLAIR, coronal T2 fast spin echo, axial gradient echo, axial diffusion and ADC through the brain. COMPARISON: [facility], MR, MR ANGIO HEAD WO CON, 12/13/2022, 8:38. [facility], MR, MR HEAD/BRAIN WO CON, 02/02/2022, 16:40. FINDINGS: Image quality: Excellent. CSF spaces: Ventricles appear symmetric in size and shape. Basal cisterns are patent. No extra-axial fluid collections. Brain: No intracranial bleeds or mass effects. There is cerebral volume loss for age. There are periventricular and deep white matter chronic small vessel ischemic changes. Brainstem appears normal. Diffusion-weighted images show no acute ischemic insults. No chronic ischemic insults. Incidental note is made of an empty sella, which is unchanged compared to the prior. No definite normal flow void can be seen within the left V4 segment. The flow voids are otherwise within normal limits. Skull and face: Calvarial bone marrow is normal in signal. Orbits are normal. Sinuses: Sinuses and mastoids are clear. IMPRESSION: No significant intracranial abnormality is seen, stable from prior. No interval infarction is identified. No definite flow void seen within the left V4 segment, which is consistent with the given history. Dictated by: Bebeto Deshpande M.D. on 12/13/2022 at 11:32 Approved by: Bebeto Deshpande M.D. on 12/13/2022 at 11:34
== END ==
PROVIDERS: Family Provider Student in an Organized Health Care Education/Training Program; PCP Student in an Organized Health Care Education/Training Program; Referring Provider Student in an Organized Health Care Education/Training Program; Visit Provider Student in an Organized Health Care Education/Training Program
DX: I65.02 Occlusion and stenosis of left vertebral artery (principal)
CPT/HCPCS: 70544; 70551

== ENCOUNTER → 2023-02-09 15:32 | Outpatient (CLI) | payer OTHER, SELFPAY ==
[2021-08-21 11:10] VITALS: BMI 33.6
--- NOTE | 2023-02-09 15:33 | DI.MRI.S_ITS ---
PROCEDURE: MR ANGIO NECK W CON INDICATIONS: Occlusion stenosis of left vertebral artery/PAIN TECHNIQUE: Axial and sagittal TruFISP through the neck. Coronal dynamic MRA after the administration of contrast in the arterial and venous phases, with rotating 3-dimensional maximum intensity projection (MIP) reformats constructed from subtraction images. COMPARISON: None. FINDINGS: Image quality: Excellent. Carotid system: Great vessels demonstrate a conventional anatomy as they arise from the aortic arch. The origins of the common carotid arteries appear normal. The calibers and courses of the common carotid arteries are likewise normal. The carotid bifurcations appear normal bilaterally. Severe tortuosity of the extracranial internal carotid arteries with retropharyngeal courses. No high-grade stenosis.. Posterior circulation: At least moderate stenosis at the takeoff of the right vertebral artery. The right vertebral artery is otherwise patent and normal in caliber. No left vertebral artery is seen, likely representing chronic occlusion. The more superior portions of the vertebral arteries demonstrate normal course and caliber. Vertebral arteries join to form a normal appearing basilar artery. Miscellaneous: Subclavian arteries are patent throughout. Pre-contrast images through the neck demonstrate no soft tissue abnormalities. IMPRESSION: 1. 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 2. Moderate stenosis of the origin of the right vertebral artery which is otherwise patent and normal in caliber throughout the remainder of its course. 3. Severe tortuosity of the extracranial internal carotid arteries with a retropharyngeal course. No high-grade stenosis of the internal carotid arteries. The origin of the bilateral internal carotid arteries is patent and normal in caliber. Any quantitative measurements of stenosis were performed using NASCET criteria. Dictated by: Edvin Chau M.D. on 02/09/2023 at 17:11 Approved by: Edvin Chau M.D. on 02/09/2023 at 17:15
--- NOTE | 2023-02-09 15:34 | DI.MRI.S_ITS ---
PROCEDURE: MR CERVICAL SPINE WO CON INDICATIONS: Occlusion stenosis of left vertebral artery/PAIN TECHNIQUE: Noncontrast sagittal T1 spin echo and T2 fast spin echo, sagittal STIR, foraminal oblique sagittal T2 fast spin echo, and axial gradient echo or T2 fast spin echo through the cervical spine. COMPARISON: None. FINDINGS: Image quality: Excellent. Alignment and Curvature: Straightening of the normal cervical lordosis. Bone Marrow: Multilevel vertebral body height loss without associated edema. Marrow demonstrates normal overall signal. Spinal Cord: Visualized spinal cord has normal size and signal. No cerebellar tonsillar herniation. Paraspinous Soft Tissues: No paravertebral masses. Prevertebral soft tissues are normal in thickness. C2-C3: Disc desiccation and posterior disc osteophyte complex abutting the ventral cord. Mild central canal stenosis. Facet and uncovertebral arthropathy. Moderate bilateral neural foraminal stenosis. C3-C4: Disc desiccation and height loss. Posterior disc osteophyte complex abutting the ventral cord. Moderate central canal stenosis. Facet and uncovertebral arthropathy. Severe bilateral neural foraminal stenosis. C4-C5: Disc desiccation height loss. Posterior disc osteophyte complex. Mild central canal stenosis. Facet and uncovertebral arthropathy. Severe bilateral neural foraminal stenosis. C5-C6: Disc desiccation and mild posterior disc osteophyte complex. Mild central canal stenosis. Facet and uncovertebral arthropathy. Moderate bilateral neural foraminal stenosis. C6-C7: Disc desiccation. Minimal posterior disc osteophyte complex. Mild central canal stenosis. Facet and uncovertebral arthropathy. Moderate bilateral neural foraminal stenosis. C7-T1: Disc desiccation. No central canal stenosis. Facet and uncovertebral arthropathy. No significant neural foraminal stenosis. IMPRESSION: 1. Multilevel degenerative changes of the cervical spine as described above. 2. There is multilevel mild central canal stenosis, moderate central canal stenosis at C3-C4. 3. Severe bilateral neural foraminal stenosis at C3-C4 and C4-C5. Dictated by: Edvin Chau M.D. on 02/09/2023 at 17:07 Approved by: Edvin Chau M.D. on 02/09/2023 at 17:11
== END ==
PROVIDERS: PCP Student in an Organized Health Care Education/Training Program; Referring Provider Psychiatry & Neurology Neurology; Visit Provider Psychiatry & Neurology Neurology
DX: I65.02 Occlusion and stenosis of left vertebral artery (principal); I77.1 Stricture of artery; M47.812 Spondylosis without myelopathy or radiculopathy, cervical region; M48.02 Spinal stenosis, cervical region
CPT/HCPCS: 70548; 72141; A9579

== ENCOUNTER 2023-04-29 08:20 | Emergency (ER) | payer OTHER, SELFPAY ==
[2021-08-21 11:10] VITALS: BMI 33.6
[2023-04-29] VITALS (12 sets, daily range): BP systolic 98–117; BP diastolic 52–64; PULSE 58–64; RESP 18–24; TEMP 36.9; O2SAT 94–98; BMI 34.4
--- NOTE | 2023-04-29 08:32 | ED.CHESTPAIN ---
HPI - Chest Pain General Chief Complaint: Chest Pain Stated Complaint: Chest Pain Time Seen by Provider: 04/29/23 08:28 History of Present Illness HPI narrative: Patient is a 77-year-old male history of hypothyroid hypertension hyperlipidemia presenting today with weakness. He has been doing karate since 2012 he was karate today when he felt his legs get very weak. He felt like he might pass out he needed to sit down. He maybe had a brief episode of passing out and just did not feel quite right. He apparently had some chest pain but denies any chest pain now. He reports he had a cup of tea this morning which is very normal for him. He has not dizzy or lightheaded. He has no chest pain abdominal pain nausea or vomiting. He has feeling a lot better now. He had no numbness tingling facial droop. Related Data Home Medications Medication Instructions Recorded Confirmed lovastatin 20 mg tablet 20 mg PO QAM 07/31/20 08/21/21 omeprazole 20 mg capsule,delayed 20 mg PO DAILY 07/31/20 08/21/21 release Previous Rx's Medication Instructions Recorded levothyroxine 150 mcg tablet 0.15 mg PO QAM #90 tabs 05/30/17 lisinopril 10 mg tablet 10 mg PO Q DAY #90 tabs 05/30/17 acetaminophen 325 mg tablet 650 mg (2 x 325 mg) PO TID #60 tabs 08/07/20 docusate sodium 100 mg capsule 100 mg PO BID #20 caps 08/07/20 (DOK) ibuprofen 400 mg tablet 400 mg PO Q4HR #60 tabs 08/07/20 oxycodone 5 mg tablet 5 mg PO Q4HR PRN Moderate to 08/22/21 severe postop pain #40 tabs polyethylene glycol 3350 17 gram 17 g PO DAILY PRN Constipation #30 08/22/21 oral powder packet ea tamsulosin 0.4 mg capsule (Flomax) 0.4 mg PO .At dinnertime #7 caps 08/22/21 Allergies Allergy/AdvReac Type Severity Reaction Status Date / Time No Known Drug Allergies Allergy Verified 08/06/20 09:47 Patient History Medical History Anemia Chronic constipation COUCH (dyspnea on exertion) GERD (gastroesophageal reflux disease) Hoarseness HTN (hypertension) Osteoarthritis PSVT (paroxysmal supraventricular tachycardia) RBBB (right bundle branch block) Surgical History History of arthroplasty of right knee (08/06/20) History of arthroscopy of right knee History of colonoscopy History of esophagogastroduodenoscopy (EGD) Social History household members: spouse and family Smoking Status: Never smoker alcohol intake: former Smoking Status: Never smoker Substance Use Type: does not use Exam Initial Vital Signs Initial Vital Signs: Vital Signs Pulse Rate 62 04/29/23 08:24 Pulse Oximetry 97 04/29/23 08:24 GENERAL: Alert very pleasant 77-year-old male and in no acute distress. HEENT: Head atraumatic,EOMI, pupils reactive, face symmetric, moist mucous membranes CARDIOVASCULAR: Regular rate and rhythm without murmurs, rubs or gallops. RESPIRATORY: Breath sounds equal bilaterally, no wheezes rales or rhonchi. ABDOMEN: Soft, nontender. Normoactive bowel sounds all 4 quadrants. No guarding or rebound. EXTREMITIES: Normal range of motion, no clubbing or edema. Neurovascularly intact NEUROLOGICAL: Alert and oriented x4.Normal gait and speech. Cranial nerves II through XII grossly intact. Good [id number], good [id number], strength equal bilaterally, no dysarthria or aphasia, sensation in tact to soft touch bilaterally, no visual changes, no facial droop SKIN: Warm, dry, no laceration, no petechiae, no rashes or lesions. Course Orders Ordered: ED Orders 04/29/23 08:30 Complete Blood Count AUTO DIFF Stat Comprehensive Metabolic Panel Stat Lipase Stat Troponin & CK Cardiac Panel Stat 04/29/23 08:35 XR chest 1V Stat 04/29/23 08:36 EKG-12 Lead Stat 04/29/23 08:45 COVID19 -Nasal RAPID Stat Discontinued Medications Aspirin (Aspirin 81 Mg Chew Tab) 324 mg PO NOW ONE Stop: 04/29/23 08:36 Last Admin: 04/29/23 08:43 Dose: Not Given Documented By: MPO Sodium Chloride (Normal Saline 0.9%) 1,000 mls @ 150 mls/hr IV CONT ERIK Last Infusion: 04/29/23 11:28 Dose: Infused Documented By: Infusion: 04/29/23 10:45 Dose: 1,000 mls/hr Documented By: Admin: 04/29/23 08:48 Dose: 150 mls/hr Documented By: DIANA Vital Signs Vital signs: Vital Signs - 8 hr 04/29/23 08:24 04/29/23 08:30 04/29/23 08:34 Temperature 98.4 F Pulse Rate 62 64 63 Respiratory Rate 21 Blood Pressure 117/54 L Pulse Oximetry 97 98 97 Oxygen Delivery Method Room Air 04/29/23 08:39 04/29/23 08:39 04/29/23 09:00 Temperature Pulse Rate 61 Respiratory Rate 21 Blood Pressure 108/60 108/59 L Pulse Oximetry 95 Oxygen Delivery Method 04/29/23 09:00 04/29/23 09:30 04/29/23 09:30 Temperature Pulse Rate 60 58 L Respiratory Rate 19 18 Blood Pressure 98/52 L Pulse Oximetry 94 95 Oxygen Delivery Method 04/29/23 10:00 04/29/23 10:01 04/29/23 10:02 Temperature Pulse Rate 60 60 Respiratory Rate 18 24 Blood Pressure 113/56 L Pulse Oximetry 94 95 Oxygen Delivery Method 04/29/23 10:02 04/29/23 10:30 04/29/23 10:30 Temperature Pulse Rate 59 L 62 Respiratory Rate 19 21 Blood Pressure 109/56 L Pulse Oximetry 94 94 Oxygen Delivery Method 04/29/23 10:37 04/29/23 10:37 04/29/23 11:00 Temperature Pulse Rate 60 Respiratory Rate 24 Blood Pressure 98/64 113/64 Pulse Oximetry 94 Oxygen Delivery Method 04/29/23 11:00 Temperature Pulse Rate 62 Respiratory Rate 22 Blood Pressure Pulse Oximetry 94 Oxygen Delivery Method MDM - Chest Pain Lab Data 04/29/23 08:30 04/29/23 08:30 Labs: Lab Results 04/29/23 04/29/23 Range/Units 08:30 08:45 WBC 4.7 (4.5-11.0) X10^3/uL RBC 4.72 (4.5-5.9) X10^6/uL Hgb 14.7 (13.5-17.5) g/dL Hct 42.2 (41-53) % MCV 89.6 (80-100) fL MCH 31.1 (26-34) PG MCHC 34.7 (30-36) % RDW 12.5 (11.6-14.8) % Plt Count 234 (150-400) X10^3/uL Neut % (Auto) 61.3 (50-75) % Lymph % (Auto) 18.5 L (25-40) % Harnett % (Auto) 15.9 H (3-14) % Eos % (Auto) 3.3 (2-4) % Baso % (Auto) 1.0 (0-2) % Neut # (Auto) 2900 (1622-0346) /uL Lymph # (Auto) 900 L (3525-1359) /uL Harnett # (Auto) 800 (0-900) /uL Eos # (Auto) 200 (0-450) /uL Baso # (Auto) 0 (0-100) /uL Sodium 133 L (137-145) mmol/L Potassium 3.9 (3.4-5.1) mmol/L Chloride 102 (98-107) mmol/L Carbon Dioxide 24 (22-32) mmol/L BUN 18 (9-20) mg/dL Creatinine 0.91 (0.66-1.25) mg/dL Estimated GFR > 60 (>60) mL/min BUN/Creatinine Ratio 19.8 (6-22) Glucose 118 H (80-110) mg/dL Calcium 8.3 L (8.4-10.2) mg/dL Total Bilirubin 1.0 (0.2-1.3) mg/dL AST 28 (17-59) IU/L ALT 21 (<50) IU/L Alkaline Phosphatase 72 (38-126) U/L Total Creatine Kinase 43 L (55-170) U/L Troponin I < 0.012 (0.01-0.034) ng/mL Total Protein 7.0 (6.3-8.2) g/dL Albumin 3.7 (3.5-5.0) g/dL Globulin 3.3 (1.7-4.1) g/dL Albumin/Globulin Ratio 1.1 (1.0-2.8) Lipase 57 (23-300) U/L SARS-CoV-2 (PCR) Negative (Negative) ECG Data Interpretation: Sinus rhythm rate 58 MD interval 200 QRS 154 QTC 435 right bundle-branch block noted similar to previous EKGs MDM Narrative Medical decision making narrative: Patient is 77-year-old male who presents today with weakness while doing his morning for [employer]. He just felt like his legs were weak and had what sounds like a near syncopal episode. He has no sulcal deficits. Currently denying any sort chest pain or palpitations. Blood work has been reviewed no leukocytosis no anemia no electrolyte abnormality no kidney abnormality troponin is negative COVID test negative Chest x-ray reviewed no acute cardiopulmonary process Blood pressures have been monitored in the ED to have it on the lower side 108/59 but have dropped 98/64. He received a L of IV fluids. He ambulates in the ED doing well. At this time may have some mild dehydration with slightly lower blood pressures but he ambulated without any sort of dizziness or unsteadiness. No evidence of infection. He does not have any focal deficits did not hit his head not having any stroke-like symptoms no need for head CT at this time. Discharge Plan Departure Patient Disposition: Home Clinical Impression: Orthostatic hypotension Instructions: DI for Syncope in Adults (Fainting), Orthostatic Hypotension Activity Restrictions/Additional Instructions: *You have been diagnosed with orthostatic hypotension *What to do: Increase fluids to your blood pressure was mildly *Continue to take medications as directed *Follow up with your primary care provider in 2-3 days or call [phone] *Return to ER if you should have increasing weakness chest pain shortness of breath [or] any new, worsening or concerning symptoms Prescriptions: No Action lisinopril 10 MG tablet 10 mg PO Q DAY Qty: 90 0RF levothyroxine 150 MCG tablet 0.15 mg PO QAM Qty: 90 0RF omeprazole 20 mg Capsule,Delayed Release(Dr/Ec) 20 mg PO DAILY lovastatin 20 MG tablet 20 mg PO QAM acetaminophen 325 mg Tablet 650 mg PO TID Qty: 60 0RF docusate sodium [DOK] 100 mg Capsule 100 mg PO BID Qty: 20 0RF ibuprofen 400 mg Tablet 400 mg PO Q4HR Qty: 60 0RF oxycodone 5 mg Tablet 5 mg PO Q4HR PRN (Reason: Moderate to severe postop pain) Qty: 40 0RF polyethylene glycol 3350 17 gram Powder In Packet 17 g PO DAILY PRN (Reason: Constipation) Qty: 30 0RF tamsulosin [Flomax] 0.4 mg Capsule 0.4 mg PO .At dinnertime Qty: 7 0RF Rx Instructions: To help with postop urinary retention Referrals: Raquel Blanton PA-C [Primary Care Provider] - Stand Alone Forms: Patient Portal/API
--- NOTE | 2023-04-29 08:35 | DI.RAD.S_ITS ---
PROCEDURE: XR CHEST 1V INDICATIONS: chest pain TECHNIQUE: One view of the chest was acquired. COMPARISON: None. FINDINGS: Surgical changes and devices: None. Lungs and pleura: Lungs are clear. No pleural effusions or pneumothorax. Mediastinum: Mediastinal contours appear normal. Heart size is normal. Bones and chest wall: No suspicious bony lesions. Overlying soft tissues appear unremarkable. IMPRESSION: No acute cardiopulmonary abnormality is seen. Approved by: Amelia Daily M.D. on 04/29/2023 at 9:31
[2023-04-29] MEDS: SODIUM CHLORIDE 0.9% 1,000 ML 150 ML IV (08:48)
[2023-04-29 08:50] LABS: Add Manual Diff / Slide Review NO; Basophils Absolute Auto 0 /uL (0-100); Eosinophils Absolute Auto 200 /uL (0-450); Eosinophils Percent Auto 3.3 % (2-4); Hematocrit 42.2 % (41-53); Hemoglobin 14.7 g/dL (13.5-17.5); Lymphocytes Absolute Auto 900 /uL (1100-4500); Lymphocytes Percent Auto 18.5 % (25-40); Mean Corpuscular HGB Conc 34.7 % (30-36); Mean Corpuscular Hemoglobin 31.1 PG (26-34); Mean Corpuscular Volume 89.6 fL (80-100); Monocytes Absolute Auto 800 /uL (0-900); Monocytes Percent Auto 15.9 % (3-14); Neutrophils Absolute Auto 2900 /uL (1500-7000); Neutrophils Percent Auto 61.3 % (50-75); Platelet Count 234 X10^3/uL (150-400); Red Blood Cell Count 4.72 X10^6/uL (4.5-5.9); Red Cell Distribution Width 12.5 % (11.6-14.8); White Blood Cell Count 4.7 X10^3/uL (4.5-11.0)
[2023-04-29 09:02] LABS: Alanine Aminotransferase 21 IU/L (<50); Albumin 3.7 g/dL (3.5-5.0); Albumin Globulin Ratio 1.1 (1.0-2.8); Alkaline Phosphatase 72 U/L (38-126); Aspartate Aminotransferase 28 IU/L (17-59); BUN Creatinine Ratio 19.8 (6-22); Blood Urea Nitrogen 18 mg/dL (9-20); Calcium 8.3 mg/dL (8.4-10.2); Carbon Dioxide 24 mmol/L (22-32); Chloride 102 mmol/L (98-107); Creatine Kinase 43 U/L (55-170); Estimated Glomerular Filt Rate > 60 mL/min (>60); Globulin 3.3 g/dL (1.7-4.1); Glucose 118 mg/dL (80-110); HEMOLYSIS < 15 (0-50); Lipase 57 U/L (23-300); Potassium 3.9 mmol/L (3.4-5.1); Sodium 133 mmol/L (137-145)
[2023-04-29 09:13] LABS: Troponin I < 0.012 ng/mL (0.01-0.034)
[2023-04-29 09:19] LABS: COVID19 -Nasal RAPID Negative (Negative)
--- NOTE | 2023-04-29 09:28 | PC.NURSE ---
Pt came to ED via EMS because he was at his daily karate class and began to feel weakness in his legs, chest pain and SOB. Pt became diaphoretic and called 911. When EMS arrived pt's sx resolved and pt stated that sx lasted about 5-10 minutes. Pt states that this has never happened to him before. Pt a&ox4 and answers all questions appropriately. Denies any cp or SOB at this the time of triage. ENGINEERING LEADER intact. Hx HTN, high cholesterol and hypothyroid.
== END 2023-04-29 11:59 | disposition home or self-care (01) ==
PROVIDERS: Emergency Provider Emergency Medicine; PCP Student in an Organized Health Care Education/Training Program
DX: I95.1 Orthostatic hypotension (principal); R07.9 Chest pain, unspecified; Z20.822 Contact with and (suspected) exposure to COVID-19
CPT/HCPCS: 71045; 80053; 82550; 83690; 84484; 85025; 87635; 93005; 96360; 96361; 99284

== ENCOUNTER → 2023-05-04 14:53 | Outpatient (CLI) | payer OTHER, SELFPAY ==
[2021-08-21 11:10] VITALS: BMI 33.6
[2023-05-04 16:38] LABS: Cholesterol 164 mg/dL (140-199); HDL Cholesterol 26 mg/dL (40-60); LDL Cholesterol Calculated 98 mg/dL (<100); Triglycerides 201 mg/dL (35-150)
[2023-05-04 17:08] LABS: TSH w/ Reflex to FT4 0.43 uIU/mL (0.47-4.68)
[2023-05-04 19:04] LABS: Free T4, Direct Thyroxine 1.94 ng/dL (0.78-2.19)
== END ==
PROVIDERS: PCP Nurse Practitioner Family; Referring Provider Nurse Practitioner Family; Visit Provider Nurse Practitioner Family
DX: E03.9 Hypothyroidism, unspecified (principal)
CPT/HCPCS: 80061; 84439; 84443

== ENCOUNTER → 2023-05-16 12:16 | Outpatient (CLI) | payer OTHER, SELFPAY ==
[2021-08-21 11:10] VITALS: BMI 33.6
--- NOTE | 2023-05-16 12:16 | DI.CT.S_ITS ---
PROCEDURE: CT CHEST WO CON INDICATIONS: chronic cough, 50 years exposure to tobacco TECHNIQUE: Noncontrast 5 mm thick sections acquired from the pulmonary apices to the posterior costophrenic angles. 1 mm lung window, 5 mm thick coronal and sagittal and 7 mm axial MIP reformats were then acquired. For radiation dose reduction, the following was used: automated exposure control, adjustment of mA and/or kV according to patient size. COMPARISON: [facility], CR, XR CHEST 1V, 04/29/2023, 8:59. FINDINGS: Image quality: Diagnostic. Lower Neck: No enlarged lymph nodes. Thyroid: No thyroid nodules which require sonographic follow up, per consensus guidelines. Axillae: No enlarged lymph nodes. Chest Wall: Unremarkable. Bones: No acute vertebral body compression fractures. Multilevel spondylitic changes throughout the imaged spine. No suspicious osseous lesions. Lungs and Pleura: No pneumothorax or pleural effusions. No focal consolidation. No septal thickening or nodularity. There is minimal bronchiectasis involving the dependent portions of the bilateral lower lobes with associated right greater than left tree-in-bud opacities along the dependent portions of the lower lobes. Heart: Heart size is normal. No pericardial effusion. Multivessel atherosclerotic calcifications of the coronary arteries. Thoracic Vessels: The aorta and pulmonary arteries demonstrate normal size. Mediastinum and Sherry: No enlarged lymph nodes. Esophagus: No wall thickening. Small hiatal hernia. Upper Abdomen: Visualized upper abdomen solid organs and bowel loops appear normal. IMPRESSION: 1. Mild bilateral right greater than left tree-in-bud opacities predominantly involving the dependent portions of the bilateral lower lobes with associated minimal lower lobe bronchiectasis. Findings may represent sequela of chronic aspiration although chronic mycobacterial or atypical infection may have a similar appearance. 2. Small hiatal hernia. 3. Moderate atherosclerotic vascular calcifications. Dictated by: Srinivas Douglas M.D. on 05/16/2023 at 19:21 Approved by: Srinivas Douglas M.D. on 05/16/2023 at 19:41
== END ==
LOC: CT 12:16
PROVIDERS: PCP Nurse Practitioner Family; Referring Provider Nurse Practitioner Family; Visit Provider Nurse Practitioner Family
DX: I25.10 Atherosclerotic heart disease of native coronary artery without angina pectoris (principal); K44.9 Diaphragmatic hernia without obstruction or gangrene; Z77.22 Contact with and (suspected) exposure to environmental tobacco smoke (acute) (chronic)
CPT/HCPCS: 71250

== ENCOUNTER → 2023-05-30 08:07 | Outpatient (CLI) | payer OTHER, SELFPAY ==
[2021-08-21 11:10] VITALS: BMI 33.6
== END ==
LOC: RESP 08:07
PROVIDERS: PCP Nurse Practitioner Family; Referring Provider Nurse Practitioner Family; Visit Provider Nurse Practitioner Family
DX: R05.3 Chronic cough (principal)
CPT/HCPCS: 94060; 94726; 94729

== ENCOUNTER → 2023-07-18 08:48 | Outpatient (CLI) | payer OTHER, SELFPAY ==
[2021-08-21 11:10] VITALS: BMI 33.6
[2023-07-18 10:24] LABS: Alanine Aminotransferase 21 IU/L (<50); Albumin 3.7 g/dL (3.5-5.0); Albumin Globulin Ratio 1.3 (1.0-2.8); Alkaline Phosphatase 78 U/L (38-126); Aspartate Aminotransferase 24 IU/L (17-59); BUN Creatinine Ratio 21.4 (6-22); Blood Urea Nitrogen 18 mg/dL (9-20); Calcium 9.1 mg/dL (8.4-10.2); Carbon Dioxide 30 mmol/L (22-32); Chloride 103 mmol/L (98-107); Estimated Glomerular Filt Rate > 60 mL/min (>60); Globulin 2.8 g/dL (1.7-4.1); Glucose 92 mg/dL (80-110); HEMOLYSIS < 15 (0-50); Sodium 136 mmol/L (137-145); Total Protein 6.5 g/dL (6.3-8.2)
== END ==
PROVIDERS: PCP Nurse Practitioner Family; Referring Provider Nurse Practitioner Family; Visit Provider Nurse Practitioner Family
DX: I10 Essential (primary) hypertension (principal)
CPT/HCPCS: 36415; 80053

== ENCOUNTER → 2023-07-21 10:16 | Outpatient (CLI) | payer OTHER, SELFPAY ==
[2021-08-21 11:10] VITALS: BMI 33.6
[2023-07-22 14:27] LABS: TSH w/ Reflex to FT4 0.53 uIU/mL (0.47-4.68)
== END ==
PROVIDERS: PCP Nurse Practitioner Family; Referring Provider Nurse Practitioner Family; Visit Provider Nurse Practitioner Family
DX: E03.9 Hypothyroidism, unspecified (principal)
CPT/HCPCS: 36415; 84443

== ENCOUNTER → 2024-01-04 14:08 | Outpatient (CLI) | payer OTHER, SELFPAY ==
[2021-08-21 11:10] VITALS: BMI 33.6
--- NOTE | 2024-01-04 14:10 | DI.CT.S_ITS ---
PROCEDURE: CT CHEST WO CON INDICATIONS: follow up nodules TECHNIQUE: Noncontrast 5 mm thick sections acquired from the pulmonary apices to the posterior costophrenic angles. 1 mm lung window, 5 mm thick coronal and sagittal and 7 mm axial MIP reformats were then acquired. For radiation dose reduction, the following was used: automated exposure control, adjustment of mA and/or kV according to patient size. COMPARISON: [facility], CT, CT CHEST WO CON, 05/16/2023, 11:26. FINDINGS: Image quality: Diagnostic Lungs and pleura: No dense airspace disease. Minimal lower lobe bronchiectasis again seen. No pleural effusions. No significant pulmonary nodules requiring follow-up. Mediastinum, heart, and esophagus: Coronary calcifications. Mild nonspecific distal esophageal wall thickening. Overall normal heart size. No pathologic lymph nodes by size criteria. Nonspecific prominent upper mediastinal lymph nodes again seen, possibly reactive, but indeterminate on CT Chest wall and thyroid: Unremarkable Upper abdomen: No gross abnormality on these limited non-contrast images Bones: Degenerative findings. IMPRESSION: Minimal lower lobe pulmonary bronchiectasis, likely from prior infectious/inflammatory process. No airspace disease, significant nodularity, or pleural effusions on today's study. Indeterminate prominent upper mediastinal lymph nodes again seen, possibly reactive Consider follow-up if there is any concern or history for malignancy. Coronary calcifications. Dictated by: Isaac Fraire M.D. on 01/04/2024 at 18:06 Approved by: Isaac Fraire M.D. on 01/04/2024 at 18:10
== END ==
PROVIDERS: PCP Nurse Practitioner Family; Referring Provider Internal Medicine Critical Care Medicine; Visit Provider Internal Medicine Critical Care Medicine
DX: R91.8 Other nonspecific abnormal finding of lung field (principal); I25.10 Atherosclerotic heart disease of native coronary artery without angina pectoris
CPT/HCPCS: 71250

== ENCOUNTER → 2024-02-17 13:18 | Outpatient (CLI) | payer OTHER, SELFPAY ==
[2021-08-21 11:10] VITALS: BMI 33.6
--- NOTE | 2024-02-17 13:21 | DI.RAD.S_ITS ---
PROCEDURE: XR SHOULDER LT MIN 2V INDICATIONS: Shoulder pain, decreased ROM TECHNIQUE: 3 views of the shoulder were acquired. COMPARISON: None. FINDINGS: Bones: No fractures or dislocations. No suspicious bony lesions. Visualized ribs appear intact. Soft tissues: No suspicious soft tissue calcifications. IMPRESSION: Hypertrophic AC joint Approved by: Mark Milan M.D. on 02/17/2024 at 19:02
== END ==
LOC: RAD 13:20
PROVIDERS: PCP Nurse Practitioner Family; Referring Provider Nurse Practitioner Family; Visit Provider Nurse Practitioner Family
DX: M25.512 Pain in left shoulder (principal)
CPT/HCPCS: 73030

== ENCOUNTER 2024-05-11 06:29 | Day surgery (SDC) | payer MEDICARE, SELFPAY ==
[2021-08-21 11:10] VITALS: BMI 33.6
[2024-05-11] VITALS (8 sets, daily range): BP systolic 91–143; BP diastolic 49–77; PULSE 69–100; RESP 13–20; TEMP 36.2–36.6; O2SAT 93–96
--- NOTE | 2024-05-11 | PATH_ITS ---
[facility] Accession Number: [id number] No. of containers..02 Tissue . 01 Material submitted: . PART A: gastrointestinal site - ANTRUM PART B: colon - SIGMOID POLYP . 01 Diagnosis: Part A: ANTRUM: Gastric mucosa with mild chronic inflammation. No Helicobacter organisms identified. No intestinal metaplasia, dysplasia, or malignancy identified. . Part B: SIGMOID POLYP: Tubular adenoma. [facility] 05/16/2024 1404 Local . 01 Electronically signed: . Robert Espinosa MD, Pathologist NPI- [id number] . 01 Gross description: . A. Received in formalin, labeled with two patient identifiers and 1. Antrum, are two quintero soft tissue fragments measuring 0.3-0.5 cm in greatest dimension. Submitted in cassette A1. . B. Received in formalin, labeled with two patient identifiers and 2. Sigmoid polyp, is a single quintero soft tissue fragment measuring 0.6 cm in greatest dimension. Submitted in cassette B1. ([id number]) /[facility]R 05/16/2024 1404 Local . 01 Microscopic: . Part A: ANTRUM: An immunohistochemical stain was performed to evaluate for Helicobacter organisms and is negative. The control stains appropriately. * This test was developed and the performance characteristics were validated by [facility]. It has not been cleared or approved by the Food and Drug Administration. . 01 Pathologist provided ICD-10: D12.5, K29.50 . 01 CPT . 017014, 855586, [id number] Specimen Comment: A courtesy copy of this report has been sent to [facility] Pathology Performed at: [address] [facility] [place], [place], [place] [id number] MD Robert Espinosa MD Phone: [phone]
[2024-05-11] MEDS: LACTATED RINGERS 1,000 ML 42 ML IV (07:06)
--- NOTE | 2024-05-11 07:43 | P.HP_ITS ---
History of Present Illness History of Present Illness Date Patient Seen: 05/11/24 Time Patient Seen: 07:44 Chief complaint: EGD/Colonscopy Narrative: 78-year-old white male, with reflux for many years with reasonable control symptoms as long as he remembers to take his omeprazole, on chronic NSAIDs for osteoarthritis of his knees, also with a personal history of polyps from a colonoscopy 5 years ago, presents for follow-up. He had a CT scan of the chest with symptoms of a chronic cough that showed mediastinal lymphadenopathy. He had 1 episode of what sounds like vasovagal syncope during a martial arts class. [facility] Medical History Personal history of colonic polyps Cataract Hiatal hernia Anemia RBBB (right bundle branch block) Osteoarthritis COUCH (dyspnea on exertion) Hoarseness Chronic constipation PSVT (paroxysmal supraventricular tachycardia) GERD (gastroesophageal reflux disease) HTN (hypertension) Surgical History History of arthroplasty of right knee (08/06/20) History of arthroscopy of right knee History of esophagogastroduodenoscopy (EGD) History of colonoscopy Social History marital status: household members: spouse and family lives independently: Yes occupational status: previously employed Smoking Status: Never smoker alcohol intake: never substance use type: does not use Meds Home Medications and Allergies Home Medications Medication Instructions Recorded Confirmed Type cholecalciferol (vitamin D3) 10 10 mcg PO DAILY 05/04/23 05/11/24 History mcg (400 unit) tablet vitamin B complex (B 1 tab PO DAILY 05/04/23 05/11/24 History Complex-Vitamin B12 tablet) levothyroxine 137 mcg tablet 137 mcg PO DAILY #90 tabs 05/24/23 05/11/24 Rx ferrous sulfate 325 mg (65 mg 325 mg PO DAILY #90 tabs 05/27/23 05/11/24 Rx iron) tablet omeprazole 20 mg capsule,delayed 20 mg PO DAILY #90 caps 05/27/23 05/11/24 Rx release lovastatin 20 mg tablet 20 mg PO QAM #90 tabs 08/23/23 05/11/24 Rx losartan 50 mg tablet 50 mg PO DAILY #90 tabs 09/05/23 05/11/24 Rx celecoxib 100 mg capsule 100 mg PO BID #60 caps 02/17/24 05/11/24 Rx diclofenac sodium 1 % topical gel 4 g topical QID #100 grams 02/17/24 05/11/24 Rx Allergies Allergy/AdvReac Type Severity Reaction Status Date / Time Opioids - Morphine Analogues AdvReac Intermediate Nausea Verified 05/11/24 07:08 Review of Systems Review of Systems ROS: Yes All systems reviewed with the patient and are negative except as otherwise documented Exam Vital Signs (past 8 hours): - 05/11/24 07:17 Temperature 97.9 F Pulse Rate 88 Respiratory Rate 16 Blood Pressure 143/77 H Pulse Oximetry 93 Oxygen Delivery Method Room Air Oxygen Delivery Method Room Air Narrative Exam Narrative: Gen: NAD, sitting comfortably in bed, appears well HEENT: Sclera are anicteric, head is normocephalic and atraumatic, trachea is midline. CV: RRR, no JVD Resp: clear to auscultation bilaterally, equal chest wall movement bilaterally Abd: soft, nontender, normoactive bowel sounds Ext: no edema, full range of motion Neuro: Cranial nerves II-XII grossly intact, no focal deficits Skin: No erythema or ecchymosis Assessment & Plan Assessment and plan (1) Hiatal hernia: Status: Acute (2) GERD (gastroesophageal reflux disease): Qualifiers: Esophagitis presence: without esophagitis Qualified Code(s): K21.9 - Gastro-esophageal reflux disease without esophagitis Status: Acute Plan: With the presence of mediastinal lymphadenopathy, GERD requiring chronic omeprazole, EGD is indicated. We will perform a time colonoscopy. (3) Mediastinal lymphadenopathy: Status: Acute (4) Personal history of colonic polyps: Status: Acute Plan: Patient presents for colonoscopy and EGD Risks, benefits, alternatives to EGD and colonoscopy explained, including but not limited to esophageal or bowel perforation or other serious complication requiring surgery at less than 1 in 5000 colonoscopies, abdominal pain, cramping or bleeding and less than 1% of colonoscopies, and the chances that we find a diagnosis that would require further intervention of about 2%. Patient agrees to proceed. Time-Based Coding :: [TOTAL MINUTES] spent with patient and on the chart (including review of chart, obtaining history, exam, reviewing outside data, placing orders, documenting exam and treatment plan, and counseling patient) on [DATE]. [employer] Supplies Sterilizer Document charge(s): No
[2024-05-11] MEDS: FLEETS ENEMA 1 EACH PR (07:53)
--- NOTE | 2024-05-11 08:52 | PM.OP.EC ---
Operative Date/Time/Diagnoses Date of procedure: 05/11/24 Time of procedure: 08:52 Pre-op diagnosis: 1. GERD and hiatal hernia 2. Personal history of polyps Post-op diagnosis: same (Antral gastritis, sigmoid polyp) Procedure & Clinicians Study performed: 1. EGD with cold forceps biopsy 2. Colonoscopy with cold snare polypectomy Same procedure as scheduled: Yes Indications: Reflux refractory to PPI, personal history of polyp Surgeon: Gerry Guillen Procedure Notes SCOAP/Timeout: Performed Procedure in detail: Time-out was performed. Mac was induced. Patient was placed in left lateral decubitus position. Bite block was placed. Gastroscope was inserted through the bite block to the 2nd portion of the 2nd portion of the duodenal. Duodenal was normal. There were linear erosions in the antrum. Biopsies with cold forceps were obtained. Retroflexed view showed a 3 cm hiatal hernia, sliding type with the Z-line approximately 35 cm from the incisors. Remainder esophagus and Z-line were normal. The perineum was inspected without any gross abnormality. Lubricated pediatric colonoscope was inserted and advanced to the cecum. The terminal ileum was intubated. The colonoscope was withdrawn slowly inspecting the circumference of the colon. An 8 mm polyp was noted in the sigmoid colon, removed completely with cold snare polypectomy and retrieved. Very small polyps may have been missed, prep quality was adequate. Retroflexed view of the rectum showed small, non prolapsed nonbleeding internal hemorrhoids. The scope was withdrawn the patient was taken to PACU in good condition. Scope withdrawal time: 8 Sedation minutes: 29 Findings: gastritis, hiatal hernia, internal hemorrhoids and polyp Specimen(s): other (1. Antral biopsy 2. Sigmoid polyp) Complications: none Impression: Gastritis, hiatal hernia, sigmoid polyp Post-procedure Recommendations: Colonscopy in 5 years, Reflux diet and Continue medication(s) Plan for aftercare: Home Follow up: as needed Disposition: PACU
== END 2024-05-11 09:35 | disposition home or self-care (01) ==
PROVIDERS: PCP Nurse Practitioner Family; Referring Provider Surgery; Visit Provider Surgery
PROC: 0DJ08ZZ Inspection of Upper Intestinal Tract, Via Natural or Artificial Opening Endoscopic (ICD-10-PCS; CPT 45385; principal; 2024-05-11 07:45)
PROC: 0DJD8ZZ Inspection of Lower Intestinal Tract, Via Natural or Artificial Opening Endoscopic (ICD-10-PCS; CPT 45378; 2024-05-11 07:45)
DX: Z12.11 Encounter for screening for malignant neoplasm of colon (principal); Z86.0100 Personal history of colon polyps, unspecified; K21.9 Gastro-esophageal reflux disease without esophagitis; K44.9 Diaphragmatic hernia without obstruction or gangrene; K64.8 Other hemorrhoids; K29.50 Unspecified chronic gastritis without bleeding; D12.5 Benign neoplasm of sigmoid colon
CPT/HCPCS: 45385; 43239; J2704